=== PATIENT | female | born 1990 | race Caucasian/White ===

== ENCOUNTER 2017-02-11 13:25 | Emergency (ER) | payer OTHER, SELFPAY | END 2017-02-11 15:00 | disposition home or self-care (01) | PROVIDERS: Emergency Provider Nurse Practitioner Family; Family Provider Physician Assistant; Visit Provider Nurse Practitioner Family | DX: J20.9 Acute bronchitis, unspecified (principal); Z88.1 Allergy status to other antibiotic agents | CPT/HCPCS: 71020; 99201 ==

== ENCOUNTER → 2017-05-06 16:36 | Outpatient (CLI) | payer OTHER, SELFPAY ==
[2017-05-06 16:56] LABS: Basophils % 0.4 % (0.1-2.0); Eosinophils # 0.2 K/mm3 (0.0-0.4); Eosinophils % 1.6 % (0.1-12.0); Hematocrit 43.9 % (37.0-47.0); Hemoglobin 14.3 g/dL (12.2-16.2); Lymphocytes # 2.9 K/mm3 (0.7-4.5); Lymphocytes % 26.2 K/mm3 (10-50); Mean Corpuscular HGB Conc 32.6 g/dL (31.8-35.4); Mean Corpuscular Volume 82.9 fl (81-99); Mean Platelet Volume 8.6 fl (7.4-10.4); Monocytes # 0.6 K/mm3 (0.1-1.0); Monocytes % 5.2 % (1.7-9.3); Neutrophils # 7.4 K/mm3 (1.8-7.8); Neutrophils % 66.6 % (37.0-80.0); Platelet Count 362 K/mm3 (142-424); White Blood Count 11.1 K/mm3 (4.8-10.8)
[2017-05-08 07:13] LABS: HIV Screen 4th Generation wRfx Non Reactive (Non Reactive)
[2017-05-08 10:55] LABS: Hepatitis B Surface Antigen Negative (Negative); Hepatitis C Antibody 0.1 s/co ratio (0.0-0.9); Rapid Plasma Reagin Ab Titer Non Reactive (NonRea<1:1); Rubella Antibodies, IgG 7.11 index (Immune >0.99)
== END ==
PROVIDERS: Family Provider Physician Assistant; PCP Nurse Practitioner Family; Visit Provider Nurse Practitioner Obstetrics & Gynecology
DX: Z34.90 Encounter for supervision of normal pregnancy, unspecified, unspecified trimester (principal)
CPT/HCPCS: 36415; 85025; 86592; 86703; 86762; 86850; 87340; 87380; G0432

== ENCOUNTER → 2017-05-14 12:45 | Outpatient (CLI) | payer OTHER, SELFPAY ==
--- NOTE | 2017-05-14 12:46 | US_ITS ---
US OB transvaginal HISTORY: ITS.REASON: US OB for Dates ORDERING PHYSICIAN: Guero Brewer MD PATIENT AGE: 27 years COMPARISON: None FINDINGS: There is an intrauterine gestational sac present. A yolk sac is also identified which measures up to 4 mm. The mean sac diameter is 1.2 cm. There may be a small pole present however, it is too small to determine. No heart tones evident at this time. 17 mm corpus luteum cyst on the left. IMPRESSION: Intrauterine gestational sac with yolk sac and possible pole. To early to confirm viability. Consider follow-up exam in 7-10 days as well as correlation with beta hCG
== END ==
PROVIDERS: Family Provider Physician Assistant; PCP Nurse Practitioner Family; Visit Provider Nurse Practitioner Obstetrics & Gynecology
DX: O26.841 Uterine size-date discrepancy, first trimester (principal)
CPT/HCPCS: 76830

== ENCOUNTER → 2017-06-03 13:15 | Outpatient (CLI) | payer OTHER, SELFPAY ==
--- NOTE | 2017-06-03 13:18 | US_ITS ---
US OB transvaginal HISTORY: ITS.REASON: US OB- Dates ORDERING PHYSICIAN: Guero Brewer MD PATIENT AGE: 27 years COMPARISON: 05/14/2017 FINDINGS: An intrauterine gestational sac is present with a pole with a crown-rump length of 1.85 cm correlating to gestational age of 8w3d. heart tones are present with an FHR of 154 bpm's. Yolk sac is noted. The amnion and chorion have not yet fused. Adnexa: 2 cm left corpus luteum cyst is present. IMPRESSION: Live intrauterine gestation at 8 weeks 3 days as described above. Estimated due date is 01/10/2018
== END ==
PROVIDERS: Family Provider Physician Assistant; PCP Nurse Practitioner Family; Visit Provider Nurse Practitioner Obstetrics & Gynecology
DX: O26.841 Uterine size-date discrepancy, first trimester (principal)
CPT/HCPCS: 76830

== ENCOUNTER → 2017-06-26 12:10 | Outpatient (CLI) | payer OTHER, SELFPAY ==
[2017-06-26 13:30] LABS: Free T4 (Free Thyroxine) 1.54 ng/dl (0.76-1.46)
== END ==
PROVIDERS: Visit Provider Nurse Practitioner Obstetrics & Gynecology
DX: Z34.90 Encounter for supervision of normal pregnancy, unspecified, unspecified trimester (principal)
CPT/HCPCS: 36415; 84439

== ENCOUNTER 2017-07-12 17:50 | Outpatient (CLI) | payer OTHER, SELFPAY ==
[2017-07-12 17:58] VITALS: BMI 31.6
--- NOTE | 2017-07-12 17:59 | US_ITS ---
US OB >= 14 weeks Fetus COMPARISON: Ultrasound 06/03/2017 HISTORY: Right transvaginal bleeding today, no cramping TECHNIQUE: Transvaginal imaging FINDINGS: There is a viable fetus in cephalic presentation. The heart rate is 1 52 bpm. The placenta is posterior and low-lying with what may be a partial placenta previa. There is a three-vessel cord. No gross abnormality is noted. Measurements reveal the BPD to be 2.67 cm equaling 14 weeks and 5 days, OFD 3.24 cm equaling 14 weeks 2 days. The head circumference is 9.33 cm equaling 14 weeks 2 days and abdominal circumference is 7.65 cm equaling 14 weeks 1 day. IMPRESSION: Viable early second trimester gestation with estimated age of 14 weeks and 3 days. Suggest a follow-up ultrasound in 5-6 weeks to monitor positioning of the placenta
[2017-07-12 18:00] VITALS: BP 140/74; PULSE 103; RESP 18; TEMP 36.9; O2SAT 97; BMI 31.6
[2017-07-12 18:20] LABS: Microscopic, Urine URINE MICROSCOPIC (MICROSCOPIC)
[2017-07-12 18:22] LABS: Appearance,Urine SL CLOUDY (Clear); Bilirubin,Urine Negative (Negative); Blood, Urine 2+ (Negative); Color,Urine YELLOW (Yellow); Glucose,Urine (UA) Negative (Negative); Ketones,Urine Negative (Negative); Leukocyte Esterase,Urine TRACE (Negative); Nitrate,Urine Negative (Negative); PH,Urine 6.5 (5.0-8.5); Protein,Urine Negative (Negative); Urobilinogen,Urine 0.2 EU/dl (0.2)
[2017-07-12 18:37] LABS: Bacteria,Urine 2+ /lpf
[2017-07-12 19:05] LABS: Hematocrit 41.7 % (37.0-47.0); Hemoglobin 13.6 g/dL (12.2-16.2)
== END 2017-07-12 19:13 | disposition home or self-care (01) ==
LOC: OBOUT 17:52 → OB 17:53
PROVIDERS: PCP Obstetrics & Gynecology; Visit Provider Nurse Practitioner Obstetrics & Gynecology
DX: O46.91 Antepartum hemorrhage, unspecified, first trimester (principal); Z3A.14 14 weeks gestation of pregnancy
CPT/HCPCS: 36415; 76805; 76830; 81001; 85014; 85018; 87086

== ENCOUNTER → 2017-07-23 08:55 | Outpatient (CLI) | payer OTHER, SELFPAY ==
--- NOTE | 2017-07-23 08:56 | US_ITS ---
US OB <= 14 weeks fetus: INDICATION: ITS.REASON: US OB- Bleeding during ORDERING PHYSICIAN: Patti Rosario MD PATIENT AGE: 27 years TECHNIQUE: ultrasound transabdominal scanning. COMPARISON: 07/12/2017 FINDINGS: There is a single live fetus present in the cephalic presentation. The cervix is closed. Transabdominal and endovaginal imaging was both performed. Placenta is posterior and grade 1. No evidence of retroplacental hemorrhage. There is a marginal previa which is demonstrated on the endovaginal images. Measurements: Average ultrasound age 15 weeks 5 days. Gestational Age 15 weeks 4 days. Estimated due date by ultrasound age 1101/09/2018. Estimated weight 127 g. This is 37th percentile based on estimated due date. BPD = 16 weeks 0 days OFD = 15 weeks 2 days HC = 15 weeks 3 days AC = 15 weeks 5 days FL = 15 weeks 3 days Heart Rate = 149 BPM HC/AC is 1.16. CI is 83%. FL/BPD is 57%. FL/AC is 19%. IMPRESSION: There is a single live intrauterine gestation density value presentation with an average ultrasound age of 15 weeks 5 days. All parameters correlate. There is a posterior grade 1 placenta with a marginal previa. No retroplacental hemorrhage evident
== END ==
PROVIDERS: PCP Nurse Practitioner Family; Visit Provider Obstetrics & Gynecology
DX: O20.9 Hemorrhage in early pregnancy, unspecified (principal)
CPT/HCPCS: 76801; 76830

== ENCOUNTER 2017-09-30 09:56 | Outpatient (CLI) | payer OTHER, SELFPAY ==
[2017-09-30 10:13] VITALS: BP 130/81; PULSE 96; RESP 20; TEMP 37.1; O2SAT 97; BMI 33.6
[2017-09-30 10:36] LABS: Fetal Fibronectin (Rapid) Negative (Negative)
== END 2017-09-30 12:00 | disposition home or self-care (01) ==
LOC: LAB 09:57 → OB 09:57
PROVIDERS: PCP Physician Assistant; Visit Provider Nurse Practitioner Obstetrics & Gynecology
DX: O47.02 False labor before 37 completed weeks of gestation, second trimester (principal); Z3A.25 25 weeks gestation of pregnancy
CPT/HCPCS: 59025; 82731; 96360; 96372

== ENCOUNTER 2017-10-01 08:12 | Outpatient (CLI) | payer OTHER, SELFPAY | END 2017-10-01 08:45 | disposition home or self-care (01) | LOC: OBOUT 08:13 → OB 08:15 | PROVIDERS: Visit Provider Nurse Practitioner Obstetrics & Gynecology | DX: O47.02 False labor before 37 completed weeks of gestation, second trimester (principal); Z3A.25 25 weeks gestation of pregnancy | CPT/HCPCS: 96372 ==

== ENCOUNTER 2017-10-02 08:57 | Outpatient (CLI) | payer OTHER, SELFPAY ==
[2017-10-02 09:10] VITALS: BMI 34.0
[2017-10-02 09:21] LABS: Microscopic, Urine URINE MICROSCOPIC (MICROSCOPIC)
[2017-10-02 09:23] LABS: Appearance,Urine CLEAR (Clear); Bilirubin,Urine Negative (Negative); Blood, Urine Negative (Negative); Color,Urine YELLOW (Yellow); Glucose,Urine (UA) Negative (Negative); Ketones,Urine Negative (Negative); Leukocyte Esterase,Urine Negative (Negative); Nitrate,Urine Negative (Negative); Protein,Urine Negative (Negative); Specific Gravity, Urine <= 1.005 (1.005-1.030); Urobilinogen,Urine 0.2 EU/dl (0.2)
[2017-10-02 09:29] VITALS: BP 135/82; PULSE 80; RESP 18; TEMP 37; O2SAT 97; BMI 34.0
[2017-10-02 10:08] LABS: Amorphous Sediment,Urine Trace /lpf; Bacteria,Urine 1+ /lpf; WBC,Urine Occasional #/hpf (0-3)
== END 2017-10-02 10:17 | disposition home or self-care (01) ==
LOC: OBOUT 08:58 → OB 08:58
PROVIDERS: PCP Physician Assistant; Visit Provider Nurse Practitioner Obstetrics & Gynecology
DX: O47.02 False labor before 37 completed weeks of gestation, second trimester (principal); Z3A.25 25 weeks gestation of pregnancy
CPT/HCPCS: 59025; 81001

== ENCOUNTER 2017-11-18 12:06 | Outpatient (CLI) | payer OTHER, SELFPAY ==
[2017-11-18 12:15] VITALS: BMI 35.2
[2017-11-18 12:27] LABS: Microscopic, Urine URINE MICROSCOPIC (MICROSCOPIC)
[2017-11-18 12:30] VITALS: BP 131/73; PULSE 96; RESP 18; TEMP 36.8; O2SAT 96; BMI 35.2
[2017-11-18 12:35] LABS: Appearance,Urine SL CLOUDY (Clear); Bilirubin,Urine Negative (Negative); Blood, Urine 1+ (Negative); Color,Urine YELLOW (Yellow); Glucose,Urine (UA) Negative (Negative); Ketones,Urine Negative (Negative); Leukocyte Esterase,Urine TRACE (Negative); Nitrate,Urine Negative (Negative); PH,Urine 6.5 (5.0-8.5); Protein,Urine Negative (Negative); Urobilinogen,Urine 0.2 EU/dl (0.2)
[2017-11-18 12:57] LABS: Bacteria,Urine Trace /lpf; Mucus,Urine Trace /lpf; RBC,Urine Occasional #/hpf (0-3); WBC,Urine Occasional #/hpf (0-3)
== END 2017-11-18 13:00 | disposition hospice, home (50) ==
LOC: OBOUT 12:08 → OB 12:09
PROVIDERS: PCP Physician Assistant; Visit Provider Nurse Practitioner Obstetrics & Gynecology
DX: O26.893 Other specified pregnancy related conditions, third trimester (principal); Z3A.32 32 weeks gestation of pregnancy; R10.2 Pelvic and perineal pain
CPT/HCPCS: 59025; 81001

== ENCOUNTER → 2017-12-09 18:16 | Outpatient (REF) | payer OTHER, SELFPAY | LOC: LAB 18:16 | PROVIDERS: Visit Provider Nurse Practitioner Obstetrics & Gynecology | DX: Z34.90 Encounter for supervision of normal pregnancy, unspecified, unspecified trimester (principal) | CPT/HCPCS: 86403 ==

== ENCOUNTER 2018-01-03 08:31 | Inpatient (IN) ==
[2018-01-03 10:07] LABS: Basophils % 0.4 % (0.1-2.0); Eosinophils # 0.1 K/mm3 (0.0-0.4); Eosinophils % 0.9 % (0.1-12.0); Hematocrit 38.2 % (37.0-47.0); Hemoglobin 13.4 g/dL (12.2-16.2); Lymphocytes # 2.2 K/mm3 (0.7-4.5); Lymphocytes % 19.9 % (10-50); Mean Corpuscular HGB Conc 35.2 g/dL (31.8-35.4); Mean Corpuscular Hemoglobin 30.2 pg (27.0-31.2); Mean Corpuscular Volume 85.6 fl (81-99); Mean Platelet Volume 9.3 fl (7.4-10.4); Monocytes # 0.6 K/mm3 (0.1-1.0); Monocytes % 5.3 % (1.7-9.3); Neutrophils % 73.5 % (37.0-80.0); Platelet Count 227 K/mm3 (142-424); Red Blood Count 4.46 M/mm3 (4.20-5.40); Red Cell Distribution Width 13.9 % (11.5-17.5); White Blood Count 10.9 K/mm3 (4.8-10.8)
--- NOTE | 2018-01-03 12:39 | Progress Note ---
Internal Medicine - PN: Subj *Date: 01/03/18 *Time: 12:35 Interval history: This 27-year-old 3 para 1 AB 1 (trisomy 18) white female has been followed by Dr. Brewer for care, which has been uneventful. At 0300 on 01/02/18 she began leaking fluid and initially called the labor room nurse who instructed her to come to the labor room. However, she did not arrive until 45 this morning (at 39 weeks of gestation) with documented rupture of membranes. She had been scheduled for an induction tomorrow. She was afebrile, but her white count was 10.9 with a left shift. An IV was begun and she was started on intravenous ampicillin. Her cervix was 2-3 cm dilated, with a high presenting vertex. Intravenous Pitocin was begun, and her cervix is now 3 cm, but the vertex is still high. An internal monitor has been placed. To this point, the baby looks good on the monitor. The plan is to continue to observe for any evidence of infection, but to continue augmentation with anticipation of a vaginal delivery. Her blood type is O+. Her rubella titer is immune. She plan s to breast-feed. Exam Vital signs and Labs for Last 24 Hours: Temp Pulse Resp BP Pulse Ox 98.2 F 104 H 20 145/93 H 98 01/03/18 08:54 01/03/18 08:54 01/03/18 08:54 01/03/18 08:54 01/03/18 08:54 Laboratory Results - last 24 hr 01/03/18 08:50: Membrane Rupture Positive A 01/03/18 09:45: Blood Type O Positive, Antibody Screen Negative 01/03/18 09:45: WBC 10.9 H, RBC 4.46, Hgb 13.4, Hct 38.2, MCV 85.6, MCH 30.2, MCHC 35.2, RDW 13.9, Plt Count 227, MPV 9.3, Neut % (Auto) 73.5, Lymph % (Auto) 19.9, [place] % (Auto) 5.3, Eos % (Auto) 0.9, Baso % (Auto) 0.4, Neut # (Auto) 8.0 H, Lymph # (Auto) 2.2, [place] # (Auto) 0.6, Eos # (Auto) 0.1, Baso # (Auto) 0.0 I & O for Last 24 hours: Intake & Output 01/01/18 01/02/18 01/03/18 01/04/18 11:59 11:59 11:59 11:59 Weight 202 lb 5.34 oz
--- NOTE | 2018-01-03 14:45 | Progress Note ---
[facility] Anesthesia Checklist - Structural Data Admitted From: Inpatient Planned Operative Procedure/s: labor epidural Consent for Planned Operative Procedure(s) Verified: Yes - Airway Assessment C-Spine Mobility Assessed: Yes TMJ Mobility Assessed: Yes Dentition: Good Dentition - Anesthesia Plan Anesthesia Risk discussed: Yes Anesthesia Plan: Verified ASA Class: II Anesthesia Type: Epidural [facility] History I have reviewed the patient's past medical history: Yes 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: Denies:: Anxiety, Depression, Diabetes Mellitus Type 1, Migraine Other Surgeries: No: Amputation: No Fractures: No - *Social History Smoking Status: Never smoker Alcohol Intake: never Substance Use Type: denies use - Psychiatric History Pschychiatric History:: Denies:: Anxiety, Depression *Family Hx:: No significant family history Para: 1
[2018-01-03 16:33] LABS: Microscopic, Urine URINE MICROSCOPIC (MICROSCOPIC)
[2018-01-03 16:34] LABS: Appearance,Urine CLEAR (Clear); Bilirubin,Urine Negative (Negative); Blood, Urine Negative (Negative); Color,Urine YELLOW (Yellow); Glucose,Urine (UA) Negative (Negative); Ketones,Urine Negative (Negative); Leukocyte Esterase,Urine Negative (Negative); Protein,Urine Negative (Negative); Urobilinogen,Urine 0.2 EU/dl (0.2)
[2018-01-03 16:44] LABS: Bacteria,Urine 1+ /lpf; Squamous Epithelial Cell,Urine Occasional #/hpf (0-5)
--- NOTE | 2018-01-03 19:12 | Progress Note ---
Internal Medicine - PN: Subj *Date: 01/03/18 *Time: 19:11 Interval history: Epidural has been working well. The patient is now complete, complete, +1. She will begin pushing. Exam Vital signs and Labs for Last 24 Hours: Temp Pulse Resp BP Pulse Ox 98.2 F 104 H 20 145/93 H 98 01/03/18 08:54 01/03/18 08:54 01/03/18 08:54 01/03/18 08:54 01/03/18 08:54 Laboratory Results - last 24 hr 01/03/18 08:50: Membrane Rupture Positive A 01/03/18 09:45: Blood Type O Positive, Antibody Screen Negative 01/03/18 09:45: WBC 10.9 H, RBC 4.46, Hgb 13.4, Hct 38.2, MCV 85.6, MCH 30.2, MCHC 35.2, RDW 13.9, Plt Count 227, MPV 9.3, Neut % (Auto) 73.5, Lymph % (Auto) 19.9, [place] % (Auto) 5.3, Eos % (Auto) 0.9, Baso % (Auto) 0.4, Neut # (Auto) 8.0 H, Lymph # (Auto) 2.2, [place] # (Auto) 0.6, Eos # (Auto) 0.1, Baso # (Auto) 0.0 01/03/18 14:48: Urine Color Yellow, Urine Appearance Clear, Urine pH 7.0, Ur Specific [place] 1.020, Urine Protein Negative, Urine Glucose (UA) Negative, Urine Ketones Negative, Urine Blood Negative, Urine Nitrate Negative, Urine Bilirubin Negative, Urine Urobilinogen 0.2, Ur Leukocyte Esterase Negative, Urine WBC 3-5, Ur Squamous Epith Cells Occasional, Urine Bacteria 1+ I & O for Last 24 hours: Intake & Output 01/01/18 01/02/18 01/03/18 01/04/18 11:59 11:59 11:59 11:59 Weight 202 lb 5.34 oz
--- NOTE | 2018-01-03 19:40 | Procedure Note ---
- Delivery Note Delivery Date:: 01/03/18 Delivery Time:: 19:16 Anesthesia Type: Epidural Was labor medically induced?: Yes Induction method: per pitocin protocol Gestational age (weeks): 39 Infant delivered prior to 39 weeks?: No Infant Gender: Male at 1 minute: 9 at 5 minutes: 9 Suction Catheter Type: [place] AF:: clear LAC or MLE?: LAC (1st degree perineal) Delivery Procedure:: This 27-year-old 3, now para 2, AB 1 white female arrived in L&D 39 weeks of gestation, having experienced premature rupture of membranes approximately 40 hours prior. She was afebrile. Her CBC was normal except for a slightly elevated white count and left shift. She was started on intravenous antibiotics (ampicillin) and remained afebrile throughout her labor and delivery. At the time of admission she was 2-3 cm dilated. She was experiencing irregular contractions. She was augmented with intravenous Pitocin, and labored under a labor epidural, which worked well. She went steadily to completion at 190, and delivered spontaneously, without an episiotomy, at 190. There was no meconium, nor was there a nuchal cord. The baby's nasal and oropharynx were bulb suction, and the baby cried spontaneously on the perineum, as was delivered. The cord was clamped and cut, 3 vessels were noted to be within the cord, and cord blood was obtained. The cord pH is pending at this time. The baby was handed into the arms of the attending track template maker, Dr. Alvarez, who assigned Apgars of 9 at 1 minute and 9 at 5 minutes to this 7 pound 10 ounce, 20 inch male infant, born at 190. The placenta delivered spontaneously, intact, at 1911, making the total time in labor 11 hours 12 minutes. The uterus was inspected and was felt to be clean, and was involuting well, with IV Pitocin running. The rectovaginal septum was intact at the close of the procedure, but there was a small first-degree midline perineal laceration, which was closed with a running unlocked suture of 2-0 Vicryl. The sponge and needle count was correct. The estimated blood loss was 350 cc. The patient tolerated the procedure well, and was recovered in excellent condition. Her blood type is O+. Her rubella titer is immune. She plans to breast-feed. Placental Delivery Description: Spontaneous
[2018-01-03 20:30] LABS: Hemoglobin 11.6 g/dL (12.2-16.2)
[2018-01-04 06:34] LABS: Hematocrit 32.8 % (37.0-47.0); Hemoglobin 11.3 g/dL (12.2-16.2)
--- NOTE | 2018-01-04 08:40 | Progress Note ---
Internal Medicine - PN: Subj *Date: 01/04/18 *Time: 08:39 Interval history: She continues to do very well. She is eating and ambulating. She is breast- feeding. Exam Vital signs and Labs for Last 24 Hours: Temp Pulse Resp BP Pulse Ox 98.2 F 104 H 20 145/93 H 98 01/03/18 08:54 01/03/18 08:54 01/03/18 08:54 01/03/18 08:54 01/03/18 08:54 Laboratory Results - last 24 hr 01/03/18 08:50: Membrane Rupture Positive A 01/03/18 09:45: Blood Type O Positive, Antibody Screen Negative 01/03/18 09:45: WBC 10.9 H, RBC 4.46, Hgb 13.4, Hct 38.2, MCV 85.6, MCH 30.2, MCHC 35.2, RDW 13.9, Plt Count 227, MPV 9.3, Neut % (Auto) 73.5, Lymph % (Auto) 19.9, [place] % (Auto) 5.3, Eos % (Auto) 0.9, Baso % (Auto) 0.4, Neut # (Auto) 8.0 H, Lymph # (Auto) 2.2, [place] # (Auto) 0.6, Eos # (Auto) 0.1, Baso # (Auto) 0.0 01/03/18 14:48: Urine Color Yellow, Urine Appearance Clear, Urine pH 7.0, Ur Specific [place] 1.020, Urine Protein Negative, Urine Glucose (UA) Negative, Urine Ketones Negative, Urine Blood Negative, Urine Nitrate Negative, Urine Bilirubin Negative, Urine Urobilinogen 0.2, Ur Leukocyte Esterase Negative, Urine WBC 3-5, Ur Squamous Epith Cells Occasional, Urine Bacteria 1+ 01/03/18 19:20: Hgb 11.6 L D, Hct 35.0 L 01/03/18 19:46: Cord ABG pH 7.36 01/04/18 06:00: Hgb 11.3 L, Hct 32.8 L I & O for Last 24 hours: Intake & Output 01/01/18 01/02/18 01/03/18 01/04/18 11:59 11:59 11:59 11:59 Output Total 600 / 600 Balance -600 / -600 Weight 202 lb 5.34 oz Microbiology Reports for the Last 24 Hours: Microbiology 01/03/18 19:15 Umbilical Cord Gram Stain - Final - Constitutional no acute distress Assessment and Plan - Assessment and plan all Dx Assessment and Plan for all problems:: She continues to do well. We will plan to send her home tomorrow.
--- NOTE | 2018-01-05 08:24 | Discharge Summary ---
General - General Admission date:: 01/03/18 Discharge date: 01/05/18 HPI HPI: She is a 27-year-old 3 now para 2 aborta 1 who was 39 weeks gestational age. She had had about 2 days of ruptured membranes came in in early labor. She was augmented with oxytocin was group B streptococcus negative. Hospital Course Hospital Course: She was started on oxytocin. Her membranes had previously ruptured. She progressed under labor epidural to full dilation and delivered spontaneously a live born male child at 7:09 PM in the evening of January 03, 2018. The baby was a liveborn male child weighing 7 pounds 10 ounces and 20 inches long. He had Apgars of 9 at 1 minute and 9 at 5 minutes. She has done well and has remained afebrile throughout her hospitalization. She is eating and drinking and ambulating. She is pumping her breasts but much colostrum. She is taking [id number] analgesics for pain. She has, she is rubella immune and was group B Streptococcus negative. Her instruction assistant principal is Dr. Yeboah. She is discharged home to follow weeks time. She will continue her meds and iron. She will continue with njfv-osr-[id number] analgesics. Her condition on discharge is stable. Rhogam Administration: Not Indicated Objective Vital signs: Temp Pulse Resp BP Pulse Ox 98.0 F 87 16 120/70 98 01/04/18 08:05 01/04/18 08:05 01/04/18 08:05 01/04/18 08:05 01/04/18 08:05 no acute distress Results Labs on day of discharge: Preliminary micro results at discharge 01/03/18 19:15 Surgical Biopsy Culture - Preliminary Umbilical Cord NO GROWTH AFTER 24 HOURS DS: Diagnosis - Discharge Diagnosis (1) Normal delivery at term Status: Acute Discharge Plan - Patient Discharge Instructions ACTIVITY: No heavy lifting DIET: continue same diet - Follow up Plan Disposition: Home, Self-Shelter Medications: Home Medications Medication Instructions Recorded Confirmed Type 1 tab PO QHS 05/06/17 01/04/18 History vitamin,calcium,zdnzkwgi-trfv-ociok acid tablet Prescriptions/Medication Reconciliation: Continue vitamin,calcium,mktbpcnl-dtie-frsxm acid tablet 1 tab PO QHS
[2018-01-05 10:13] VITALS: BP 138/76
== END 2018-01-05 13:55 | disposition home or self-care (01) ==
LOC: OBOUT 08:31 → OB 08:33
PROVIDERS: ADMIT Obstetrics & Gynecology; ATTEND Obstetrics & Gynecology

== ENCOUNTER → 2018-05-11 12:16 | Outpatient (CLI) | payer OTHER, SELFPAY ==
[2018-05-11 13:51] LABS: HCG Qualitative, Serum Negative (Negative)
== END ==
PROVIDERS: Visit Provider Surgery
DX: R22.30 Localized swelling, mass and lump, unspecified upper limb (principal)
CPT/HCPCS: 36415; 84703

== ENCOUNTER → 2018-06-01 14:44 | Outpatient (POV) | payer OTHER, SELFPAY | PROVIDERS: Visit Provider Dermatology | DX: Z00.00 Encounter for general adult medical examination without abnormal findings (principal) ==

== ENCOUNTER → 2019-03-28 15:58 | Outpatient (CLI) | payer OTHER, MEDICAID, SELFPAY ==
[2019-03-28 16:41] LABS: Basophils # 0.1 K/mm3 (0-0.2); Basophils % 0.7 % (0.1-2.0); Eosinophils # 0.1 K/mm3 (0.0-0.4); Eosinophils % 1.2 % (0.1-12.0); Hematocrit 41.6 % (37.0-47.0); Hemoglobin 13.8 g/dL (12.2-16.2); Lymphocytes % 29.9 % (10-50); Mean Corpuscular HGB Conc 33.1 g/dL (31.8-35.4); Mean Corpuscular Hemoglobin 28.5 pg (27.0-31.2); Mean Platelet Volume 9.3 fl (7.4-10.4); Monocytes # 0.4 K/mm3 (0.1-1.0); Monocytes % 3.7 % (1.7-9.3); Neutrophils # 6.4 K/mm3 (1.8-7.8); Neutrophils % 64.4 % (37.0-80.0); Platelet Count 274 K/mm3 (142-424); Red Blood Count 4.84 M/mm3 (4.20-5.40); Red Cell Distribution Width 12.4 % (11.5-17.5); White Blood Count 9.9 K/mm3 (4.8-10.8)
[2019-03-28 17:39] LABS: Anion Gap 14.7 mEq/L (5-15); Blood Urea Nitrogen 17 mg/dL (7-18); Calcium 8.9 mg/dL (8.5-10.1); Carbon Dioxide 26 mmol/L (21.0-32.0); Chloride 105 mmol/L (98-107); Estimated Glomerular Filt Rate 75 ml/min (>60); GFR (African American) 91 ML/MIN (>60); Glucose 92 mg/dL (74-106); Potassium 4.7 mmoL/L (3.5-5.1); Sodium 141 mmol/L (137-145)
[2019-03-28 17:56] LABS: HCG Qualitative, Serum Negative (Negative)
== END ==
PROVIDERS: Visit Provider Nurse Practitioner Obstetrics & Gynecology
DX: Z01.818 Encounter for other preprocedural examination (principal); Z30.09 Encounter for other general counseling and advice on contraception
CPT/HCPCS: 36415; 80048; 84703; 85025

== ENCOUNTER 2019-08-28 15:53 | Emergency (ER) | payer OTHER, SELFPAY ==
[2019-08-28 15:53] VITALS: BP 124/87; PULSE 96; RESP 20; TEMP 36.9; O2SAT 100; BMI 33.5
--- NOTE | 2019-08-28 16:20 | HMH.EDUTC ---
[facility] [place] Disposition Clinical Impression: UTI (urinary tract infection) Qualifiers: Urinary tract infection type: site unspecified Hematuria presence: with hematuria Qualified Code(s): N39.0 - Urinary tract infection, site not specified Disposition: Home, Self-Care Condition on Discharge: Good Instructions: Trimethoprim/Sulfamethoxazole (Alternative Therapy), Urinary Tract Infection, DI for Urinary Tract Infection (UTI), Phenazopyridine Additional Instructions: *Increase fluids. Water not Soda or Tea *Start antibiotic immediately and be sure to take as ordered for the FULL length of time although you should start to see improvement over the next 48 hours *Pyridium as needed Remember this medication will turn your urine [place]. This is normal but it will stain what ever it gets on *You should not use Pyridium for more than 48 hours. If so , follow up with your primary physician to review urine culture and ensure that antibiotic is adequate for infection *Be SURE to follow up anytime for new or worsening symptoms with your family doctor. AND in 48 hours for urine culture results with your family doctor, if you do not have a doctor then you may call back to the [facility] for urine culture results and further treatment. We do recommend that you choose and establish care with a Primary Care Physician. AND follow up with them in 10-14 days to repeat UA to ensure infection is resolved and blood no longer present *Be sure to let your PCP know that we sent urine cultures from the [facility] so they can follow up to ensure that you area the on the correct antibiotic Call your doctor office and make appointment for 48 hours (2 days from today) to follow up and get the results of your urine culture and further treatment Return if needed Straight to ER if any life threatening symptoms Prescriptions: Sulfamethoxazole/Trimethoprim [Bactrim DS tablet] 1 each PO BID 10 Days #20 tab Prescription Printed Phenazopyridine HCl [Pyridium 200mg Tablet] 200 pow PO TID #6 tab Prescription Printed Referrals: Anh Galaviz APRN [Primary Care Provider] - As needed Time of Disposition: 16:32 Medical Decision Making - Wade Inquiry Pt receiving controlled substance: No Wade was queried for this patient: No Vital Signs: 08/28/19 15:53 08/28/19 16:38 Temperature 98.4 F 98.4 F Temperature Source Oral Oral Pulse Rate 96 H Pulse Rate [Radial] 96 H Respiratory Rate 20 20 Blood Pressure 124/87 Blood Pressure [Right Arm] 124/87 Blood Pressure Mean [Right Arm] 99 Blood Pressure Source Automatic Cuff Blood Pressure Source [Right Arm] Automatic Cuff Blood Pressure Position Sitting Blood Pressure Position [Right Arm] Sitting 02 Sat by Pulse Oximetry 100 Oxygen Delivery Method Room Air Room Air - Lab Data Lab results reviewed: Yes: I reviewed the patient's lab results. Lab Results 08/28/19 15:54: Urine Color Yellow, Urine Appearance Clear, Urine pH 7.0, Ur Specific [place] 1.015, Urine Protein 1+, Urine Glucose (UA) Negative, Urine Ketones Negative, Urine Blood 3+, Urine Nitrate Positive A, Urine Bilirubin Negative, Urine Urobilinogen 1, Ur Leukocyte Esterase 3+ A Orders (Tests/Meds): ED MEDICATIONS Discontinued Medications Generic Name Dose Route Start Last Admin Trade Name Freq PRN Reason Stop Dose Admin Ceftriaxone Sodium 1 gm 08/28/19 16:25 08/28/19 16:35 Rocephin 1gm Vial IM 08/28/19 16:26 1 gm ONCE ONE Administration Protocol Lidocaine HCl 0 ml 08/28/19 16:25 08/28/19 16:36 Lidocaine 1% 10ml Mdv IM 08/28/19 16:26 2.1 ml ONCE ONE Administration ORDERS Category Date Time Status Urine Culture Stat Micro 08/28/19 16:00 Received [facility] [place] HPI - General Stated complaint: Poss UTI Time Seen by Provider: 08/28/19 16:20 Mode of Arrival: Ambulatory Source of Information: Patient Limitations: No Limitations Description of Symptoms (Recalled from Triage Doc. by RN): UTI, frequent urination since t
[2019-08-28 16:23] LABS: Apearance,Urine Clear (Clear); Bilirubin,Urine Negative (Negative); Blood, Urine 3+ (Negative); Color,Urine Yellow (Yellow); Glucose,Urine (UA) Negative (Negative); Ketones,Urine Negative (Negative); Protein,Urine 1+ (Negative); Specific Gravity, Urine 1.015 (1.005-1.030); UTC Leukocyte Esterase,Urine 3+ (Negative); UTC Nitrate,Urine Positive (Negative); Urobilinogen,Urine 1 EU/dl (0.2)
[2019-08-28 16:38] VITALS: BP 124/87; PULSE 96; RESP 20; TEMP 36.9; O2SAT 100
== END 2019-08-28 16:40 | disposition home or self-care (01) ==
PROVIDERS: Emergency Provider Nurse Practitioner; PCP Nurse Practitioner Family
DX: N30.00 Acute cystitis without hematuria (principal)
CPT/HCPCS: 81003; 87086; 87088; 87186; 96372; 99202

== ENCOUNTER → 2020-01-25 15:24 | Outpatient (CLI) | payer OTHER, SELFPAY | PROVIDERS: Visit Provider Physician Assistant | DX: N39.0 Urinary tract infection, site not specified (principal) | CPT/HCPCS: 87086; 87088; 87186 ==

== ENCOUNTER → 2020-03-09 22:50 | Outpatient (CLI) | payer OTHER, SELFPAY | PROVIDERS: PCP Nurse Practitioner Family; Visit Provider Nurse Practitioner Family | DX: U07.1 COVID-19 (principal) | CPT/HCPCS: U0003 ==

== ENCOUNTER → 2020-03-26 17:30 | Outpatient (CLI) | payer OTHER, SELFPAY ==
--- NOTE | 2020-03-26 17:37 | XR_ITS ---
PROCEDURE: XR CHEST 2V CLINICAL HISTORY: covid Chest pain COMPARISON: CR CXR CHEST(2 VIEWS-NOT PORTABLE) from 03/25/2016 CR CXR CHEST(2 VIEWS-NOT PORTABLE) from 10/25/2016 CT CTAC CTA-CHEST from 10/25/2016 CR CXR CHEST(2 VIEWS-NOT PORTABLE) from 02/11/2017 FINDINGS: The cardiomediastinal silhouette and pulmonary vascularity are within normal limits. The lungs are clear without infiltrates, suspicious nodules, or pleural effusions. No acute bony abnormalities. IMPRESSION: No acute findings. Dictated by: Darren Kirk MD 03/26/2020 18:55 Darren Kirk MD in [place] 03/26/2020 18:55
== END ==
PROVIDERS: PCP Nurse Practitioner Family; Visit Provider Nurse Practitioner Family
DX: R07.89 Other chest pain (principal)
CPT/HCPCS: 71046

== ENCOUNTER → 2020-04-13 13:43 | Outpatient (CLI) | payer OTHER, SELFPAY ==
--- NOTE | 2020-04-13 13:44 | US_ITS ---
PROCEDURE: US TRANSVAGINAL CLINICAL INDICATION: RLQP Pelvic pain COMPARISON: US OBTV US OB transvaginal from 06/03/2017 FINDINGS: UTERUS: 8cm x 5cmx 4cm with a combined endometrial thickness of 5.4mm LEFT OVARY: [id number] with a volume of 3.3ml. RIGHT OVARY: [id number] with a volume of 11.4ml. There are small nabothian cyst. Bilateral ovarian blood flow is noted. There is a small amount of fluid within the lower endometrial canal. IMPRESSION: Minimal amount fluid within the endometrial canal inferiorly otherwise negative pelvic ultrasound Dictated by: Darren Kirk MD 04/13/2020 17:40 Darren Kirk MD in [facility] 04/13/2020 17:40
== END ==
PROVIDERS: PCP Nurse Practitioner Family; Visit Provider Nurse Practitioner Obstetrics & Gynecology
DX: R10.31 Right lower quadrant pain (principal)
CPT/HCPCS: 76830

== ENCOUNTER → 2020-04-27 16:57 | Outpatient (CLI) | payer OTHER, SELFPAY ==
[2020-04-27 17:58] LABS: Basophils # 0.1 K/mm3 (0-0.2); Basophils % 0.7 % (0.1-2.0); Eosinophils # 0.2 K/mm3 (0.0-0.4); Eosinophils % 1.6 % (0.1-12.0); Hematocrit 41.6 % (37.0-47.0); Hemoglobin 13.2 g/dL (12.2-16.2); Lymphocytes # 3.2 K/mm3 (0.7-4.5); Lymphocytes % 33.4 % (10-50); Mean Corpuscular HGB Conc 31.6 g/dL (31.8-35.4); Mean Corpuscular Hemoglobin 27.7 pg (27.0-31.2); Mean Corpuscular Volume 87.4 fl (81-99); Mean Platelet Volume 8.8 fl (7.4-10.4); Monocytes # 0.4 K/mm3 (0.1-1.0); Monocytes % 3.8 % (1.7-9.3); Neutrophils # 5.8 K/mm3 (1.8-7.8); Neutrophils % 60.5 % (37.0-80.0); Platelet Count 320 K/mm3 (142-424); Red Blood Count 4.76 M/mm3 (4.20-5.40); Red Cell Distribution Width 12.4 % (11.5-17.5); White Blood Count 9.6 K/mm3 (4.8-10.8)
[2020-04-27 18:13] LABS: Alanine Aminotransferase 18 U/L (12-78); Albumin Level 4.1 g/dl (3.5-5.0); Albumin/Globulin Ratio 1.3 (1.1-1.8); Alkaline Phosphatase 67 U/L (38-126); Anion Gap 14.4 mEq/L (5-15); Aspartate Amino Transferase 24 U/L (14-36); Bilirubin,Total 0.2 mg/dl (0.2-1.3); Blood Urea Nitrogen 15 mg/dl (7-17); Calcium 9.2 mg/dl (8.4-10.2); Carbon Dioxide 21 mmol/L (22.0-30.0); Chloride 106 mmol/L (98-107); Estimated Glomerular Filt Rate 85 ml/min (>60); GFR (African American) 103 ML/MIN (>60); Globulin 3.2 g/dL (1.3-3.2); Glucose 102 mg/dl (74-100); Potassium 4.4 mmoL/L (3.5-5.1); Sodium 137 mmol/L (136-145); Total Protein,Serum 7.3 g/dl (6.3-8.2)
== END ==
PROVIDERS: Visit Provider Nurse Practitioner Family
DX: N39.0 Urinary tract infection, site not specified (principal)
CPT/HCPCS: 80053; 85025

== ENCOUNTER → 2020-04-30 14:08 | Outpatient (CLI) | payer OTHER, SELFPAY ==
[2020-04-30 17:36] LABS: Hemoglobin A1C 5.3 % (4.0-6.0)
== END ==
PROVIDERS: Visit Provider Family Medicine
DX: R73.09 Other abnormal glucose (principal)
CPT/HCPCS: 83036

== ENCOUNTER → 2020-05-17 06:19 | Outpatient (CLI) | payer OTHER, SELFPAY ==
--- NOTE | 2020-05-17 06:23 | CT_ITS ---
PROCEDURE: CT HEAD/BRAIN WO CON CLINICAL INDICATION: headaches COMPARISON: CT HDWO CT HEAD W/O CONTRAST from 05/17/2013 TECHNIQUE: Axial images obtained. All CT scans at the facility use one or more dose reduction, viz: automated exposure control, ma/kV adjustment per patient size (including targeted exams where dose is matched to indication, i.e. head), or iterative reconstruction technique. FINDINGS: No midline shift, mass effect, intracranial hemorrhage, hydrocephalus, or extra-axial fluid collection is evident. The phan-white matter differentiation is within normal limits. Brain parenchymal volume is appropriate for the age of the patient. The calvarium has an unremarkable appearance. The mastoid air cells and the paranasal sinuses are clear. IMPRESSION: No acute intracranial process. Dictated by: Shira Goodman 05/17/2020 11:45 Shira Goodman in [facility] 05/17/2020 11:45
== END ==
PROVIDERS: PCP Physician Assistant; Visit Provider Physician Assistant
DX: R51.9 Headache, unspecified (principal); G89.29 Other chronic pain
CPT/HCPCS: 70450

== ENCOUNTER → 2020-05-23 08:01 | Outpatient (CLI) | payer OTHER, SELFPAY ==
[2020-05-23 09:33] LABS: Coronavirus 19 IgG Antibody Positive (Negative); Coronavirus 19 IgM Antibody Negative (Negative)
== END ==
PROVIDERS: PCP Nurse Practitioner Family; Visit Provider Nurse Practitioner Family
DX: Z20.822 Contact with and (suspected) exposure to COVID-19 (principal)
CPT/HCPCS: 36415; 86328

== ENCOUNTER → 2020-06-06 07:39 | Outpatient (CLI) | payer OTHER, SELFPAY ==
[2020-06-06 08:11] LABS: Basophils # 0.1 K/mm3 (0-0.2); Basophils % 0.7 % (0.1-2.0); Eosinophils # 0.1 K/mm3 (0.0-0.4); Eosinophils % 1.5 % (0.1-12.0); Hematocrit 43.8 % (37.0-47.0); Hemoglobin 14.2 g/dL (12.2-16.2); Lymphocytes # 1.8 K/mm3 (0.7-4.5); Mean Corpuscular HGB Conc 32.5 g/dL (31.8-35.4); Mean Corpuscular Hemoglobin 27.6 pg (27.0-31.2); Mean Platelet Volume 8.4 fl (7.4-10.4); Monocytes # 0.4 K/mm3 (0.1-1.0); Neutrophils # 6.8 K/mm3 (1.8-7.8); Neutrophils % 73.8 % (37.0-80.0); Platelet Count 344 K/mm3 (142-424); Red Blood Count 5.15 M/mm3 (4.20-5.40); Red Cell Distribution Width 13.2 % (11.5-17.5); White Blood Count 9.2 K/mm3 (4.8-10.8)
[2020-06-06 08:30] LABS: Chloride 109 mmol/L (98-107); Sodium 137 mmol/L (136-145)
[2020-06-06 08:31] LABS: Potassium 4.5 mmoL/L (3.5-5.1)
[2020-06-06 08:33] LABS: Blood Urea Nitrogen 13 mg/dl (7-17); Estimated Glomerular Filt Rate 85 ml/min (>60); GFR (African American) 103 ML/MIN (>60)
[2020-06-06 08:34] LABS: Anion Gap 13.5 mEq/L (5-15); Calcium 9.4 mg/dl (8.4-10.2); Carbon Dioxide 19 mmol/L (22.0-30.0); Glucose 109 mg/dl (74-100); HCG Qualitative, Serum Negative (Negative)
[2020-06-06 09:15] LABS: Coronavirus 19 IgG Antibody Positive (Negative); Coronavirus 19 IgM Antibody Negative (Negative)
== END ==
PROVIDERS: Visit Provider Nurse Practitioner Obstetrics & Gynecology
DX: Z01.818 Encounter for other preprocedural examination (principal); Z20.822 Contact with and (suspected) exposure to COVID-19; R87.613 High grade squamous intraepithelial lesion on cytologic smear of cervix (HGSIL)
CPT/HCPCS: 36415; 80048; 84703; 85025; 86328

== ENCOUNTER 2020-06-08 07:14 | Day surgery (SDC) | payer OTHER, SELFPAY ==
[2020-06-05 09:03] VITALS: BMI 38.6
[2020-06-08] VITALS (12 sets, daily range): BP systolic 122–158; BP diastolic 72–80; PULSE 84–107; RESP 12–18; TEMP 36.4–38; O2SAT 95–99
--- NOTE | 2020-06-08 09:28 | HMH.OPNOTE ---
Date of procedure: 06/08/20 Pre-op Diagnosis:: High-grade squamous intraepithelial lesion Post-op Diagnosis:: High-grade squamous intra-epithelial lesion Procedure performed:: Cone biopsy, endocervical curettage Surgeon:: Guero Brewer MD WEB APPLICATIONS DEVELOPER:: Other (Jacques Khanna) Anesthesia: LMA Estimated blood loss (mL): 25 Clinical Note:: She is a 22-year-old young lady who had HGSIL on a Pap smear and this was confirmed with biopsy in the office. She was quite nervous so she asked for cone biopsy rather than LEEP procedure. Operative findings:: She had a normal-appearing cervix. There were some areas on the transformation zone that were consistent with HGSIL. Operative note:: She was to the operating room where LMA anesthesia was found be adequate. She was prepared, sterile fashion lithotomy position. Lugol solution was placed on the cervix. I then injected approximately 20 cc of 1% Xylocaine with epinephrine circumferentially about the cervix. And using knife I made a cone biopsy around the cervix. The specimen was removed. This was followed by cautery on the exocervix. I then performed an ECC.. Then using sutures I placed 4 sutures outside in to the inside out circumferentially but the cervix. I then inserted Monsel solution to the cervical os. She tolerated procedure well and was taken recovery next condition. All sponge, instrument and needle counts were correct. The estimated blood loss was less than 25 cc. Condition: stable Disposition: PACU Specimens:: Cone biopsy and endocervical curettage. Complications:: None
--- NOTE | 2020-06-08 10:35 | P.PN_ITS ---
[facility] Anesthesia Checklist - Patient Identification Patient Identification: Arm Band - Structural Data Admitted From: Home Planned Operative Procedure/s: Cone Biopsy Verified Documents: Surgical Consent, History and Physical - Additional verifications Anesthesia Reactions: No Hx Blood Transfusions: No Blood Transfusion Reaction: No - Airway Assessment C-Spine Mobility Assessed: Yes TMJ Mobility Assessed: Yes Dentition: Good Dentition - Neurological Assessment Level of Consciousness: Awake, Alert - Anesthesia Plan Anesthesia Risk discussed: Yes ASA Class: III Anesthesia Type: General [facility] History 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: Reports:: Anxiety Denies:: Asthma, Cancer, Depression, Diabetes Mellitus Type 1, Diabetes Mellitus Type 2, Internal Pacemaker, Migraine, MRSA, Seizures *Have you ever received a pneumonia vaccine?: No *Have you received a flu vaccine this season?: Yes Other 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: Denies: Blood Transfusion Reaction Anesthesia experience/problems:: None Other Surgeries: Yes: Cholecystectomy, Dilation and Curettage, Other. No: C- section, Pacemaker Amputation: No Fractures: No - *Social History Last grade of school completed: High school graduate Smoking Status: Never smoker Alcohol Intake: never Substance Use Type: denies use *Occupational Status:: employed Housing: house Household Members: family, children *Travel in the last 8 weeks: None - Psychiatric History Pschychiatric History:: Reports:: Anxiety Denies:: Depression Family Hx:: Unable to obtain
--- NOTE | 2020-06-08 10:37 | HMH.ANESI ---
[facility] Anesthesia Record Part I Intake, IV Amount: 500 Estimated blood loss (mL): 25 Urine output (mL): 0 Blood Pressure: 129/72 SaO2: 95 Pulse Rate: 90 Respiratory Rate: 12 Temperature: 99.8 F Patient is:: Awake Stable to PACU at:: 09:32
--- NOTE | 2020-06-08 11:22 | HMH.ANESII ---
[facility] Anesthesia Record Part II Discharge Time: 09:52 Destination: Surgical Day Care (OP Surgery) PACU nurse assessment reviewed?: Yes Patient Condition:: Good Anesthesia Complications:: None Swallowing reflex intact?: Yes Cyanosis?: No Blood Pressure: 124/77 Pulse Rate: 88 Temperature: 97.9 F Mental Status: Alert & Oriented Pain level:: 0 Nausea and/or vomitting:: None Intake, IV Amount: 0
== END 2020-06-08 10:23 | disposition home or self-care (01) ==
LOC: OR 07:16
PROVIDERS: PCP Nurse Practitioner Family; Visit Provider Nurse Practitioner Obstetrics & Gynecology
PROC: 0UBC7ZZ Excision of Cervix, Via Natural or Artificial Opening (ICD-10-PCS; CPT 57520; principal; 2020-06-08 08:45)
DX: R87.613 High grade squamous intraepithelial lesion on cytologic smear of cervix (HGSIL) (principal); F41.9 Anxiety disorder, unspecified; Z79.899 Other long term (current) drug therapy
CPT/HCPCS: 57500; 96374; J2405

== ENCOUNTER → 2020-08-03 07:42 | Outpatient (CLI) | payer OTHER, SELFPAY ==
[2020-08-03 07:59] LABS: Basophils % 0.7 % (0.1-2.0); Eosinophils # 0.2 K/mm3 (0.0-0.4); Eosinophils % 3.5 % (0.1-12.0); Hematocrit 42.6 % (37.0-47.0); Hemoglobin 14.2 g/dL (12.2-16.2); Lymphocytes # 1.8 K/mm3 (0.7-4.5); Lymphocytes % 29.3 % (10-50); Mean Corpuscular HGB Conc 33.4 g/dL (31.8-35.4); Mean Corpuscular Hemoglobin 27.6 pg (27.0-31.2); Mean Corpuscular Volume 82.5 fl (81-99); Mean Platelet Volume 8.5 fl (7.4-10.4); Monocytes # 0.3 K/mm3 (0.1-1.0); Monocytes % 5.6 % (1.7-9.3); Neutrophils # 3.8 K/mm3 (1.8-7.8); Neutrophils % 60.9 % (37.0-80.0); Platelet Count 329 K/mm3 (142-424); Red Blood Count 5.16 M/mm3 (4.20-5.40); White Blood Count 6.2 K/mm3 (4.8-10.8)
[2020-08-03 08:37] LABS: Chloride 112 mmol/L (98-107)
[2020-08-03 08:38] LABS: Potassium 4.2 mmoL/L (3.5-5.1); Sodium 138 mmol/L (136-145)
[2020-08-03 08:40] LABS: Alanine Aminotransferase 16 U/L (12-78); Alkaline Phosphatase 77 U/L (38-126); Anion Gap 14.2 mEq/L (5-15); Aspartate Amino Transferase 20 U/L (14-36); Bilirubin,Total 0.3 mg/dl (0.2-1.3); Blood Urea Nitrogen 13 mg/dl (7-17); Carbon Dioxide 16 mmol/L (22.0-30.0); Estimated Glomerular Filt Rate 85 ml/min (>60); GFR (African American) 103 ML/MIN (>60)
[2020-08-03 08:41] LABS: Albumin Level 4.3 g/dl (3.5-5.0); Albumin/Globulin Ratio 1.4 (1.1-1.8); Calcium 9.1 mg/dl (8.4-10.2); Glucose 102 mg/dl (74-100); Total Protein,Serum 7.3 g/dl (6.3-8.2)
[2020-08-03 08:46] LABS: C-Reactive Protein 2.6 mg/L (0-4)
[2020-08-03 09:21] LABS: Erythrocyte Sedimentation Rate 10 mm/hr (0-20)
--- NOTE | 2020-08-03 17:42 | XR_ITS ---
PROCEDURE INFORMATION: Exam: XR Right Knee Exam date and time: 08/03/2020 5:42 PM Age: 30 years old Clinical indication: Right; Patient HX: Bilat knee pain; Additional info: Bilateral knee pain TECHNIQUE: Imaging protocol: XR Right knee. Views: 4 or more views. COMPARISON: No relevant prior studies available. FINDINGS: Bones/joints: There is no evidence of acute fracture. There is no evidence of joint malalignment or dislocation. Soft tissues: There are no soft tissue masses or fluid collections. IMPRESSION: 1. No evidence of acute fracture. 2. No evidence of acute dislocation.
[2020-08-04 10:11] LABS: RA Latex Turbid. <10.0 IU/mL (0.0-13.9)
[2020-08-04 16:06] LABS: Anti-Centromere B Antibodies <0.2 AI (0.0-0.9); Anti-DNA (DS) Ab Qn 5 IU/mL (0-9); Anti-Jo-1 <0.2 AI (0.0-0.9); Anti-Smith Antibody <0.2 AI (0.0-0.9); Antichromatin Antibodies <0.2 AI (0.0-0.9); Antiscleroderma-70 Antibodies <0.2 AI (0.0-0.9); RNP Antibodies <0.2 AI (0.0-0.9); Sjogren's Anti-SS-A <0.2 AI (0.0-0.9); Sjogren's Anti-SS-B <0.2 AI (0.0-0.9)
[2020-08-06 09:26] LABS: Lupus Reflex Interpretation Comment: (.); dRVVT 54.3 sec (0.0-47.0)
[2020-08-07 00:07] LABS: Anti-Cyclic Citrullinated Pept 18 units (0-19)
== END ==
PROVIDERS: PCP Physician Assistant; Visit Provider Physician Assistant
DX: M25.561 Pain in right knee (principal); M25.562 Pain in left knee
CPT/HCPCS: 36415; 73564; 80053; 85025; 85613; 85651; 86140; 86200; 86225; 86235; 86431

== ENCOUNTER 2020-08-27 16:43 | Outpatient (RCR) | payer OTHER, SELFPAY ==
--- NOTE | 2020-08-27 17:32 | HMH.PTOPEV ---
PT Outpatient Evaluation Rehab PT Outpatient Evaluation Start: 08/27/20 16:52 Freq: Status: Active Protocol: Document 08/27/20 16:59 YUMIKO (Rec: 08/27/20 17:32 YUMIKO [id number]) Electronically Signed By Reji Teran, PT 08/27/20 16:59 Outpatient Therapy Subjective History Subjective History This is the initial Physical Therapy evaluation for Elisabet Mccarthy. Pt is a 30 y/o female referred to PT for c/o B knee pain. Pt reports pain began insidiously a couple months ago . Pt does not recal any trauma or changes prior to onset of pain. Pt states pain began in L knee and progressed into both knees - pt c/o pain in medial side of knee and patella. Chief Complaint Pain Symptom Type Ache,Throb,Sharp,Dull Symptoms Relieved By Rest/Positioning Symptoms Aggravated By Sitting,Bending/Stooping, Physical Activity Prior Functional Limitations None Current Functional Limitations Housework,Sitting,Squatting, Recreation Activity,Walking, Stairs,Bending/Stooping Symptom Description Intermittent Level of pain today (0-10) 0 Pain scale - at its best (0-10) 0 Pain scale - at its worst (0-10) 7 Hip/Knee Eval Gait Observation General Gait Pattern Observation No Deviations/Normal Assistive Device Assistive Devices None / NA Palpation Tenderness left Knee Palpation Finding Tenderness MMT bilateral Hip Abduction Strength Grade 4- Good- Hip External Rotation Strength Grade 4- Good- Knee Extension Strength Grade 4- Good- Knee Flexion Strength Grade 4- Good- ROM Hip ROM Reason Not Measured Within Functional Limits Knee ROM Reason Not Measured Within Functional Limits Special Tests Knee Apprehension Test Negative Left,Negative Right Knee Apley Compression Test Negative Left,Negative Right Knee Anterior Drawer Test Negative Left,Negative Right Knee Medial-Lateral Grind Test Negative Left,Negative Right Knee Valgus Stress Test Negative Left,Negative Right Knee Varus Stress Test Negative Left,Negative Right Patellar Grind Test Positive Left,Positive Right Patellar Compression Test Positive Left,Positive Right Outpatient Therapy Assessment Impairments Problems/Impairmments Palpation Tenderness,Impaired Strength,Impaired Walking, Impaired Sitting,Imp
== END 2020-08-27 16:45 | disposition home or self-care (01) ==
LOC: PT 16:43
PROVIDERS: PCP Physician Assistant; Visit Provider Physician Assistant
DX: M25.562 Pain in left knee (principal); M25.561 Pain in right knee
CPT/HCPCS: 97110; 97163

== ENCOUNTER 2020-11-11 13:28 | Day surgery (SDC) | payer OTHER, SELFPAY ==
[2020-11-11] VITALS (11 sets, daily range): BP systolic 120–152; BP diastolic 68–91; PULSE 76–99; RESP 14–20; TEMP 36.8–37; O2SAT 91–100; BMI 37.8
[2020-11-11 14:03] LABS: Microscopic, Urine URINE MICROSCOPIC (MICROSCOPIC)
[2020-11-11 14:05] LABS: Appearance,Urine SL CLOUDY (Clear); Bilirubin,Urine Negative (Negative); Blood, Urine Negative (Negative); Color,Urine YELLOW (Yellow); Glucose,Urine (UA) Negative (Negative); Ketones,Urine 1+ (Negative); Leukocyte Esterase,Urine Negative (Negative); Nitrate,Urine Negative (Negative); Protein,Urine Negative (Negative); Specific Gravity, Urine 1.025 (1.005-1.030)
[2020-11-11 14:08] LABS: Urine Pregnancy, HCG Qual. Negative (Negative)
[2020-11-11 14:13] LABS: Bacteria,Urine Trace /lpf; Mucus,Urine 2+ /lpf; WBC,Urine Occasional #/hpf (0-3)
[2020-11-11 14:18] LABS: Basophils # 0.1 K/mm3 (0-0.2); Basophils % 0.7 % (0.1-2.0); Eosinophils # 0.3 K/mm3 (0.0-0.4); Eosinophils % 2.9 % (0.1-12.0); Hematocrit 42.6 % (37.0-47.0); Hemoglobin 13.6 g/dL (12.2-16.2); Lymphocytes # 2.5 K/mm3 (0.7-4.5); Mean Corpuscular HGB Conc 31.9 g/dL (31.8-35.4); Mean Corpuscular Hemoglobin 27.7 pg (27.0-31.2); Mean Platelet Volume 9.1 fl (7.4-10.4); Monocytes # 0.4 K/mm3 (0.1-1.0); Monocytes % 4.5 % (1.7-9.3); Neutrophils # 6.2 K/mm3 (1.8-7.8); Neutrophils % 65.8 % (37.0-80.0); Platelet Count 325 K/mm3 (142-424); White Blood Count 9.4 K/mm3 (4.8-10.8)
[2020-11-11 14:20] LABS: Chloride 106 mmol/L (98-107); Sodium 138 mmol/L (136-145)
[2020-11-11 14:21] LABS: Potassium 4.2 mmoL/L (3.5-5.1)
[2020-11-11 14:23] LABS: Alanine Aminotransferase 14 U/L (12-78); Alkaline Phosphatase 83 U/L (38-126); Anion Gap 12.2 mEq/L (5-15); Aspartate Amino Transferase 22 U/L (14-36); Bilirubin,Total 0.5 mg/dl (0.2-1.3); Blood Urea Nitrogen 12 mg/dl (7-17); Carbon Dioxide 24 mmol/L (22.0-30.0); Creatinine Clearance Estimated 187 mL/min (50-200); Estimated Glomerular Filt Rate 99 ml/min (>60); GFR (African American) 120 ML/MIN (>60); Lipase 66 U/L (23-300)
[2020-11-11 14:24] LABS: Albumin Level 3.9 g/dl (3.5-5.0); Albumin/Globulin Ratio 1.1 (1.1-1.8); Calcium 8.9 mg/dl (8.4-10.2); Globulin 3.4 g/dL (1.3-3.2); Glucose 95 mg/dl (74-100); Total Protein,Serum 7.3 g/dl (6.3-8.2)
--- NOTE | 2020-11-11 14:26 | HMH.EDABDPAI ---
ED Disposition Clinical Impression: Acute appendicitis Qualifiers: Acute appendicitis type: with localized peritonitis Appendicitis gangrene presence: without gangrene Appendicitis perforation presence: without perforation Appendicitis abscess presence: without abscess Qualified Code(s): K35.30 - Acute appendicitis with localized peritonitis, without perforation or gangrene Disposition: Admitted as Observation Condition on Discharge: Fair Instructions: DI for Acute Abdominal Pain Referrals: Bita Tovar PA [Primary Care Provider] - - Critical Care Critical Care Time: No Attestation: On 11/11/20, the high probability of a clinically significant, sudden or life threatening deterioration of the following system(s) required my full and direct attention, intervention and personal management. The time I documented below is in addition to time spent performing reported procedures but includes the following listed in this critical care notation. Medical Decision Making - Medical Records Medical records reviewed: Yes: I reviewed the patient's medical records. - Wade Inquiry Pt receiving controlled substance: No Vital Signs: 11/11/20 13:29 Temperature 98.3 F Temperature Source Oral Pulse Rate [Right Radial] 85 Respiratory Rate 18 Blood Pressure [Right Arm] 127/84 Blood Pressure Mean [Right Arm] 98 Blood Pressure Source [Right Arm] Automatic Cuff Blood Pressure Position [Right Arm] Sitting 02 Sat by Pulse Oximetry 99 Oxygen Delivery Method Room Air - Lab Data Lab Results 11/11/20 13:33: Urine Color Yellow, Urine Appearance Sl cloudy, Urine pH 6.0, Ur Specific [place] 1.025, Urine Protein Negative, Urine Glucose (UA) Negative, Urine Ketones 1+, Urine Blood Negative, Urine Nitrate Negative, Urine Bilirubin Negative, Urine Urobilinogen 1.0, Ur Leukocyte Esterase Negative, Urine WBC Occasional, Ur Squamous Epith Cells 5-10, Urine Bacteria Trace, Urine Mucus 2+ 11/11/20 13:33: Urine HCG, Qual Negative 11/11/20 14:10: WBC 9.4, RBC 4.90, Hgb 13.6, Hct 42.6, MCV 87.0, MCH 27.7, MCHC 31.9, RDW 13.0, Plt Count 325, MPV 9.1, Neut % (Auto) 65.8, Lymph % (Auto) 26.0, [place] % (Auto) 4.5, Eos % (Auto) 2.9, Baso % (Auto) 0.7, Neut # (Auto) 6.2, Lymph # (Auto) 2.5, [place] # (Auto) 0.4, Eos # (Auto) 0.3, Baso # (Auto) 0.1 11/11/20 14:10: Sodium 138, Potassium 4.2, Chloride 106, Carbon Dioxide 24, Anion Gap 12.2, BUN 12, Creatinine 0.70, Estimated Creat Clear 187, Estimated GFR 99, Est GFR ( Amer) 120, Glucose 95, Calcium 8.9, Total Bilirubin 0.5, AST 22, ALT 14, Alkaline Phosphatase 83, Total Protein 7.3, Albumin 3.9, Globulin 3.4 H, Albumin/Globulin Ratio 1.1, Lipase 66 Result diagrams: 11/11/20 14:10 11/11/20 14:10 Orders (Tests/Meds): ED MEDICATIONS Generic Name Dose Route Start Last Admin Trade Name Freq PRN Reason Stop Dose Admin Piperacillin Sod/Tazobactam 100 mls @ 200 mls/hr 11/11/20 16:00 Sod 4.5 gm/ Sodium Chloride IV 11/25/20 15:59 Q6H LUIS MIGUEL Discontinued Medications Generic Name Dose Route Start Last Admin Trade Name Freq PRN Reason Stop Dose Admin Sodium Chloride 1,000 mls @ 999 mls/hr 11/11/20 14:00 11/11/20 14:10 Sod Chlor 0.9% 1000ml Bag IV 11/11/20 15:00 999 mls/hr .Q1H1M LUIS MIGUEL Administration Iopamidol 75 ml 11/11/20 15:10 11/11/20 15:11 Iopamidol-370 (76%);100ml Bottle IV 11/11/20 15:11 75 ml ONCE ONE Administration Ketorolac Tromethamine 30 mg 11/11/20 13:57 11/11/20 14:10 Ketorolac 30mg/Ml Vial IV 11/11/20 13:58 30 mg ONCE ONE Administration Morphine Sulfate 4 mg 11/11/20 16:15 Morphine 4mg/Ml Syringe IV 11/11/20 16:16 ONCE ONE Ondansetron HCl 4 mg 11/11/20 16:15 Ondansetron 4mg/2ml Vial IV 11/11/20 16:16 ONCE ONE Sodium Chloride 10 ml 11/11/20 15:10 11/11/20 15:11 Sodium Chloride 0.9% 10ml Syr (Rad Only) IV 11/11/20 15:11 10 ml ONCE ONE Administration ORDERS Category Date Time Status Consult to Ge
--- NOTE | 2020-11-11 14:39 | CT_ITS ---
PROCEDURE INFORMATION: Exam: CT Abdomen And Pelvis With Contrast Exam date and time: 11/11/2020 2:39 PM Age: 30 years old Clinical indication: Abdominal pain; Acute; Prior surgery; Surgery date: 6+ months; Surgery type: Tubal and gallbladder; Patient HX: Rlq pain TECHNIQUE: Imaging protocol: Computed tomography of the abdomen and pelvis with contrast. Radiation optimization: All CT scans at this facility use at least one of these dose optimization techniques: automated exposure control; mA and/or kV adjustment per patient size (includes targeted exams where dose is matched to clinical indication); or iterative reconstruction. Contrast material: ISOVUE; Contrast volume: 75 ml; Contrast route: IV; COMPARISON: RUQ US RUQ-(ABD LTD)1ORGAN/QUAD/FU 11/12/2016 8:06 AM FINDINGS: Liver: Normal. No mass. Gallbladder and bile ducts: Cholecystectomy Pancreas: Normal. No ductal dilation. Spleen: Normal. No splenomegaly. Adrenal glands: Normal. No mass. Kidneys and ureters: Normal. No hydronephrosis. Stomach and bowel: Unremarkable. No obstruction. No mucosal thickening. Appendix: The appendix measures 9.7 mm. There are mild periappendiceal inflammatory changes. Findings consistent with early acute appendicitis. Intraperitoneal space: Unremarkable. No free air. No significant fluid collection. Vasculature: Unremarkable. No abdominal aortic aneurysm. Lymph nodes: Unremarkable. No enlarged lymph nodes. Urinary bladder: Unremarkable as visualized. Reproductive: Unremarkable as visualized. Bones/joints: Unremarkable. No acute fracture. Soft tissues: Unremarkable. IMPRESSION: The appendix measures 9.7 mm. There are mild periappendiceal inflammatory changes. Findings consistent with early acute appendicitis.
--- NOTE | 2020-11-11 16:18 | PC.NURSE ---
1616 - Ya called and requested that OR team be called in to assist w/an appy per Dr Dsouza 1616 - Forestry Hunter notified to page OR team 162 - Chante returned call 162 - Clair returned call
--- NOTE | 2020-11-11 16:26 | PC.NURSE ---
Dr Randhawa spoke with Dr Dsouza pt to go to surgery
--- NOTE | 2020-11-11 16:42 | PC.NURSE ---
Surgeon is wanting rocephin 2g and flagyl 500 hanging by pt for administration before surgery
--- NOTE | 2020-11-11 16:55 | HMH.ANESCL ---
[facility] Anesthesia Checklist - Patient Identification Patient Identification: Arm Band - Structural Data Admitted From: Emergency Dept Planned Operative Procedure/s: Lap. appendectomy Consent for Planned Operative Procedure(s) Verified: Yes - NPO Status Verified Time NPO: 08:00 - Chart Verification Results Verified: HCG (Negative) - Additional verifications Patient : No Anesthesia Reactions: No Hx Blood Transfusions: No Blood Transfusion Reaction: No - Airway Assessment C-Spine Mobility Assessed: Yes TMJ Mobility Assessed: Yes Dentition: Good Dentition - Neurological Assessment Level of Consciousness: Awake Hx Seizures: No Numbness or tingling in extremities: No - Anesthesia Plan Anesthesia Risk discussed: Yes Anesthesia Plan: Verified ASA Class: II Anesthesia Type: General [facility] History I have reviewed the patient's past medical history: Yes 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: Reports:: Anxiety Denies:: Asthma, Cancer, Depression, Diabetes Mellitus Type 1, Diabetes Mellitus Type 2, Internal Pacemaker, Migraine, MRSA, Seizures *Have you ever received a pneumonia vaccine?: No *Have you received a flu vaccine this season?: Yes Other 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: Denies: Blood Transfusion Reaction Anesthesia experience/problems:: None Other Surgeries: Yes: Cholecystectomy, Dilation and Curettage, Other. No: , Pacemaker Amputation: No Fractures: No - *Social History Smoking Status: Never smoker Alcohol Intake: never Alcohol Intake Frequency:: other Substance Use Type: denies use *Occupational Status:: employed Housing: house Household Members: family, children *Travel in the last 8 weeks: None - Psychiatric History Pschychiatric History:: Reports:: Anxiety Denies:: Depression Family Hx:: Unable to obtain
--- NOTE | 2020-11-11 18:20 | P.OP_ITS ---
Date of procedure: 11/11/20 Pre-op Diagnosis:: Appendicitis Post-op Diagnosis:: Same Procedure performed:: Laparoscopic appendectomy Surgeon:: Stanley Dsouza MD COORDINATOR OF ONLINE PROGRAMS:: Wilfrid Nolasco Anesthesia: GETDella Estimated blood loss (mL): 10 Operative findings:: Injected/inflamed appendix with focal suppurative changes Infraumbilical hernia Operative note:: After informed consent was obtained the patient was taken to the operating room and placed in the supine position. General anesthesia was induced and her abdomen was prepped and draped in sterile fashion. After infiltration of local anesthetic an infraumbilical incision was made. A Veress needle was placed in position. The abdomen was insufflated. A 12 mm optical trocar was placed in position. Under direct visualization a 5 mm trocar was placed in the suprapubic position and an additional 5 mm trocar was placed in the left lower quadrant. The appendix was carefully elevated. It was found to be elongated and injected with moderate inflammatory changes. Few focal areas of suppuration were noted. Harmonic ragini were utilized to take down the mesoappendix. An Endopath 45 stapling device was then used to transect the appendix at its base. The appendix was placed in a retrieval bag and removed through the infraumbilical trocar site. The right lower quadrant was thoroughly irrigated. No active bleeding or sign of injury was noted. Evaluation of the fascia at the infraumbilical site revealed a secondary herniation. The fascia/herniation was closed with 0 Ethibond. All wounds were irrigated after the remaining trocars were removed. Skin was reapproximated with 4-0 Monocryl. Dressings were applied and the patient was transferred to recovery in stable condition. Condition: stable Disposition: PACU Specimens:: Appendix Complications:: No immediate
--- NOTE | 2020-11-11 18:30 | P.PN_ITS ---
[facility] [place] Anesthesia Record Part I Intake, IV Amount: 800 Estimated blood loss (mL): 10 Urine output (mL): 0 Blood Pressure: 129/74 SaO2: 91 Pulse Rate: 99 Respiratory Rate: 14 Temperature: 98.3 F Patient is:: Drowsy, Oral/Nasal airway Stable to PACU at:: 18:28
[2020-11-11 19:43] LABS: Microscopic,Cath URINE MICROSCOPIC (MICROSCOPIC)
[2020-11-11 19:44] LABS: Appearance,Urine/Cath CLEAR (Clear); Bilirubin,Cath Negative (Negative); Blood, Urine/Cath Negative (Negative); Color,Urine/Cath STRAW (Yellow); Glucose,Urine/Cath (UA) Negative (Negative); Ketones,Urine/Cath Negative (Negative); Leukocyte Esterase,Cath Negative (Negative); Nitrate,Cath Negative (Negative); PH,Urine/Cath 6.5 (5.0-8.5); Protein,Urine/Cath Negative (Negative); Specific Gravity, Urine/Cath <= 1.005 (1.005-1.030)
[2020-11-11 19:53] LABS: WBC,Urine/Cath Occasional #/hpf (0-3)
== END 2020-11-11 16:56 ==
LOC: ER 16:24 → SDC 11-12 14:54
PROVIDERS: Emergency Provider Emergency Medicine; PCP Physician Assistant; Visit Provider Surgery
PROC: 0DTJ4ZZ Resection of Appendix, Percutaneous Endoscopic Approach (ICD-10-PCS; CPT 44970; principal; 2020-11-11 17:30)
DX: K35.80 Unspecified acute appendicitis (principal); F41.9 Anxiety disorder, unspecified; Z88.1 Allergy status to other antibiotic agents
CPT/HCPCS: 44970; 74177; 80053; 81001; 81025; 83690; 85025; 96365; 96375; 99284; J0131; J2405; Q9967

== ENCOUNTER → 2021-01-04 09:31 | Outpatient (CLI) | payer OTHER, SELFPAY ==
--- NOTE | 2021-01-04 09:31 | US_ITS ---
PROCEDURE: US BREAST LT COMPLETE CLINICAL INDICATION: Breast pain COMPARISON: No exams were available for comparison FINDINGS: Survey is performed of the left breast with ultrasound. No cystic or solid nodules are evident. Mildly prominent nodes are present in the left axilla measuring up to 3 x 1.5 cm IMPRESSION: Negative left breast ultrasound. Mildly prominent left axillary lymph nodes for which correlation with clinical findings are needed Dictated by: Darren Kirk MD 01/11/2021 11:17 Darren Kirk MD in [place] 01/11/2021 11:17
--- NOTE | 2021-01-04 09:31 | US_ITS ---
PROCEDURE: US BREAST RT COMPLETE CLINICAL INDICATION: Breast pain COMPARISON: US US BREAST LT COMPLETE from 01/04/2021 FINDINGS: General survey performed of the right breast shows no cystic or solid nodules. Mildly prominent axillary lymph node is present at 3.9 x 1.8 cm. IMPRESSION: Unremarkable right breast ultrasound. Mildly prominent right axillary lymph node. Correlation with clinical parameters needed Dictated by: Darren Kirk MD 01/11/2021 11:18 Darren Kirk MD in [place] 01/11/2021 11:18
== END ==
PROVIDERS: PCP Nurse Practitioner Family; Visit Provider Nurse Practitioner Obstetrics & Gynecology
DX: N64.4 Mastodynia (principal)
CPT/HCPCS: 76641

== ENCOUNTER 2021-02-22 08:59 | Emergency (ER) | payer OTHER, SELFPAY ==
[2021-02-22] VITALS (8 sets, daily range): BP systolic 133–156; BP diastolic 64–104; PULSE 73–87; RESP 18–19; TEMP 36.5–36.9; O2SAT 97–100; BMI 40.5
--- NOTE | 2021-02-22 09:28 | HMH.EDUTC ---
[facility] [place] Clinical Impression: Blurry vision, right eye, Headache Disposition: Home, Self-Care Condition on Discharge: Good Instructions: DI for Migraine, DI for Headache Additional Instructions: Continue naproxen as needed for headache. Return to the emergency room with any severe headache or vision symptoms return. Follow-up with primary care provider, call for appointment. Check your COVID results on portal. Referrals: Anh Galaviz APRN [Primary Care Provider] - Medical Decision Making - Wade Inquiry Pt receiving controlled substance: No Wade was queried for this patient: No Vital Signs: 02/22/21 09:05 02/22/21 09:36 02/22/21 10:00 Temperature 97.7 F 98.4 F Temperature Source Oral Oral Pulse Rate 77 Pulse Rate [Right Brachial] 77 84 Respiratory Rate 18 18 Blood Pressure 137/104 H Blood Pressure [Right Arm] 151/89 H 156/103 H Blood Pressure Mean Blood Pressure Mean [Right Arm] 109 120 Blood Pressure Source [Right Arm] Automatic Cuff Automatic Cuff Blood Pressure Position [Right Arm] Sitting Sitting 02 Sat by Pulse Oximetry 97 98 97 Oxygen Delivery Method Room Air Room Air 02/22/21 10:30 02/22/21 11:00 02/22/21 11:30 Temperature Temperature Source Pulse Rate 79 81 87 Pulse Rate [Right Brachial] Respiratory Rate Blood Pressure 133/101 H 142/99 H 142/95 H Blood Pressure [Right Arm] Blood Pressure Mean 109 Blood Pressure Mean [Right Arm] Blood Pressure Source [Right Arm] Blood Pressure Position [Right Arm] 02 Sat by Pulse Oximetry 97 99 100 Oxygen Delivery Method 02/22/21 12:00 02/22/21 12:34 Temperature 98.4 F Temperature Source Pulse Rate 73 73 Pulse Rate [Right Brachial] Respiratory Rate 19 Blood Pressure 135/64 135/64 Blood Pressure [Right Arm] Blood Pressure Mean 87 Blood Pressure Mean [Right Arm] Blood Pressure Source [Right Arm] Blood Pressure Position [Right Arm] 02 Sat by Pulse Oximetry 98 Oxygen Delivery Method Room Air - Lab Data Lab Results 02/22/21 09:30: WBC 6.5, RBC 5.17, Hgb 14.7, Hct 45.9, MCV 88.9, MCH 28.4, MCHC 31.9, RDW 13.3, Plt Count 308, MPV 9.1, Neut % (Auto) 59.2, Lymph % (Auto) 29.6, [place] % (Auto) 5.7, Eos % (Auto) 3.1, Baso % (Auto) 2.4 H, Neut # (Auto) 3.9, Lymph # (Auto) 1.9, [place] # (Auto) 0.4, Eos # (Auto) 0.2, Baso # (Auto) 0.2 02/22/21 09:30: Sodium 138, Potassium 4.2, Chloride 104, Carbon Dioxide 26, Anion Gap 12.2, BUN 13, Creatinine 0.80, Estimated Creat Clear 175, Estimated GFR 85, Est GFR ( Amer) 103, Glucose 93, Calcium 9.0, Total Bilirubin 0.4, AST 29, ALT 19, Alkaline Phosphatase 54, Total Protein 7.3, Albumin 4.2, Globulin 3.1, Albumin/Globulin Ratio 1.4 02/22/21 11:17: SARS-CoV-2 (PCR) Not detected, Influenza A Untype (PCR) Not detected, Influenza Type B (PCR) Not detected Result diagrams: 02/22/21 09:30 02/22/21 09:30 Orders (Tests/Meds): ED MEDICATIONS Discontinued Medications Generic Name Dose Route Start Last Admin Trade Name Benq PRN Reason Stop Dose Admin Diphenhydramine HCl 25 mg 02/22/21 10:57 02/22/21 11:02 Diphenhydramine 50mg/Ml Vial IV 02/22/21 10:58 25 mg ONCE ONE Administration Ketorolac Tromethamine 30 mg 02/22/21 10:57 02/22/21 11:01 Ketorolac 30mg/Ml Vial IV 02/22/21 10:58 30 mg ONCE ONE Administration Prochlorperazine Edisylate 5 mg 02/22/21 10:57 02/22/21 11:01 Prochlorperazine 10mg/2ml Vial IV 02/22/21 10:58 5 mg ONCE ONE Administration Medical Decision Narrative: Patient reports blurry vision in right eye after she started having headache on right side behind her right ear State that this headache is not like others she has had in the past States that she has had recent eye exam Due to symptoms of headache being different than others she has had in the past and blurry vision patient transferred to the ED for further work up and evaluation patient agreed with transfer called ED spoke with
--- NOTE | 2021-02-22 09:29 | PC.NURSE ---
PATIENT SENT TO ER PER Iesha BARRIOS APRN FOR FURTHER EVALUATION. REPORT GIVEN TO Juan Carlos BRADFORD RN BY Iesha BARRIOS APRN
--- NOTE | 2021-02-22 09:41 | CT_ITS ---
FINAL REPORT TECHNIQUE: Thin section axial images were obtained from skull base to vertex without contrast. CLINICAL HISTORY: vision abnormal in R eye FINDINGS: There is no mass effect or midline shift. There is no hydrocephalus. The ventricles are symmetric in size and configuration. There is no extra-axial or intraparenchymal hemorrhage. The posterior fossa is without acute abnormality. The basilar cisterns are preserved. The soft tissues are without acute abnormality. No acute osseous abnormality is identified. IMPRESSION: No acute intracranial abnormality. Reviewed, Interpreted and Dictated by Queenie Yang MD Transcribed by Mao Garcia Authenticated by Queenie Yang MD on 02/22/2021 11:20:32 AM [facility]
[2021-02-22 09:56] LABS: Basophils # 0.2 K/mm3 (0-0.2); Basophils % 2.4 % (0.1-2.0); Eosinophils # 0.2 K/mm3 (0.0-0.4); Eosinophils % 3.1 % (0.1-12.0); Hematocrit 45.9 % (37.0-47.0); Hemoglobin 14.7 g/dL (12.2-16.2); Lymphocytes # 1.9 K/mm3 (0.7-4.5); Lymphocytes % 29.6 % (10-50); Mean Corpuscular HGB Conc 31.9 g/dL (31.8-35.4); Mean Corpuscular Hemoglobin 28.4 pg (27.0-31.2); Mean Corpuscular Volume 88.9 fl (81-99); Mean Platelet Volume 9.1 fl (7.4-10.4); Monocytes # 0.4 K/mm3 (0.1-1.0); Monocytes % 5.7 % (1.7-9.3); Neutrophils # 3.9 K/mm3 (1.8-7.8); Neutrophils % 59.2 % (37.0-80.0); Platelet Count 308 K/mm3 (142-424); Red Blood Count 5.17 M/mm3 (4.20-5.40); Red Cell Distribution Width 13.3 % (11.5-17.5); White Blood Count 6.5 K/mm3 (4.8-10.8)
[2021-02-22 10:01] LABS: Alanine Aminotransferase 19 U/L (12-78); Albumin Level 4.2 g/dl (3.5-5.0); Albumin/Globulin Ratio 1.4 (1.1-1.8); Alkaline Phosphatase 54 U/L (38-126); Anion Gap 12.2 mEq/L (5-15); Aspartate Amino Transferase 29 U/L (14-36); Bilirubin,Total 0.4 mg/dl (0.2-1.3); Blood Urea Nitrogen 13 mg/dl (7-17); Carbon Dioxide 26 mmol/L (22.0-30.0); Chloride 104 mmol/L (98-107); Creatinine Clearance Estimated 175 mL/min (50-200); Estimated Glomerular Filt Rate 85 ml/min (>60); GFR (African American) 103 ML/MIN (>60); Globulin 3.1 g/dL (1.3-3.2); Glucose 93 mg/dl (74-100); Potassium 4.2 mmoL/L (3.5-5.1); Sodium 138 mmol/L (136-145); Total Protein,Serum 7.3 g/dl (6.3-8.2)
--- NOTE | 2021-02-22 10:31 | HMH.EDGENADL ---
ED Disposition Clinical Impression: Blurry vision, right eye Headache Qualifiers: Headache type: unspecified Headache chronicity pattern: acute headache Intractability: not intractable Qualified Code(s): R51.9 - Headache, unspecified Disposition: Home, Self-Care Condition on Discharge: Good Instructions: DI for Headache, DI for Migraine Additional Instructions: Continue naproxen as needed for headache. Return to the emergency room with any severe headache or vision symptoms return. Follow-up with primary care provider, call for appointment. Check your COVID results on portal. Referrals: Anh Galaviz APRN [Primary Care Provider] - - Critical Care Critical Care Time: No Attestation: On 02/22/21, the high probability of a clinically significant, sudden or life threatening deterioration of the following system(s) required my full and direct attention, intervention and personal management. The time I documented below is in addition to time spent performing reported procedures but includes the following listed in this critical care notation. Medical Decision Making - Wade Inquiry Pt receiving controlled substance: No Vital Signs: 02/22/21 09:05 02/22/21 09:36 02/22/21 10:00 Temperature 97.7 F 98.4 F Temperature Source Oral Oral Pulse Rate 77 Pulse Rate [Right Brachial] 77 84 Respiratory Rate 18 18 Blood Pressure 137/104 H Blood Pressure [Right Arm] 151/89 H 156/103 H Blood Pressure Mean [Right Arm] 109 120 Blood Pressure Source [Right Arm] Automatic Cuff Automatic Cuff Blood Pressure Position [Right Arm] Sitting Sitting 02 Sat by Pulse Oximetry 97 98 97 Oxygen Delivery Method Room Air Room Air 02/22/21 10:30 02/22/21 11:00 Temperature Temperature Source Pulse Rate 79 81 Pulse Rate [Right Brachial] Respiratory Rate Blood Pressure 133/101 H 142/99 H Blood Pressure [Right Arm] Blood Pressure Mean [Right Arm] Blood Pressure Source [Right Arm] Blood Pressure Position [Right Arm] 02 Sat by Pulse Oximetry 97 99 Oxygen Delivery Method - Lab Data Lab Results 02/22/21 09:30: WBC 6.5, RBC 5.17, Hgb 14.7, Hct 45.9, MCV 88.9, MCH 28.4, MCHC 31.9, RDW 13.3, Plt Count 308, MPV 9.1, Neut % (Auto) 59.2, Lymph % (Auto) 29.6, [place] % (Auto) 5.7, Eos % (Auto) 3.1, Baso % (Auto) 2.4 H, Neut # (Auto) 3.9, Lymph # (Auto) 1.9, [place] # (Auto) 0.4, Eos # (Auto) 0.2, Baso # (Auto) 0.2 02/22/21 09:30: Sodium 138, Potassium 4.2, Chloride 104, Carbon Dioxide 26, Anion Gap 12.2, BUN 13, Creatinine 0.80, Estimated Creat Clear 175, Estimated GFR 85, Est GFR ( Amer) 103, Glucose 93, Calcium 9.0, Total Bilirubin 0.4, AST 29, ALT 19, Alkaline Phosphatase 54, Total Protein 7.3, Albumin 4.2, Globulin 3.1, Albumin/Globulin Ratio 1.4 Result diagrams: 02/22/21 09:30 02/22/21 09:30 Orders (Tests/Meds): ED MEDICATIONS Discontinued Medications Generic Name Dose Route Start Last Admin Trade Name Katharine PRN Reason Stop Dose Admin Diphenhydramine HCl 25 mg 02/22/21 10:57 02/22/21 11:02 Diphenhydramine 50mg/Ml Vial IV 02/22/21 10:58 25 mg ONCE ONE Administration Ketorolac Tromethamine 30 mg 02/22/21 10:57 02/22/21 11:01 Ketorolac 30mg/Ml Vial IV 02/22/21 10:58 30 mg ONCE ONE Administration Prochlorperazine Edisylate 5 mg 02/22/21 10:57 02/22/21 11:01 Prochlorperazine 10mg/2ml Vial IV 02/22/21 10:58 5 mg ONCE ONE Administration ORDERS Category Date Time Status CT head/brain wo con Stat Cat Scan 02/22/21 09:41 Taken Rapid PCR Covid and Flu A/B Stat Lab 02/22/21 11:17 Received - CT Data CT Scan: Head Time Received: 12:[address] Reviewed: Yes: I have viewed the radiologist's interpretation Findings Narrative: FINAL REPORT TECHNIQUE: Thin section axial images were obtained from skull base to vertex without contrast. CLINICAL HISTORY: vision abnormal in R eye FINDINGS: There is no mass effect or midline shift. There is no h
--- NOTE | 2021-02-22 10:40 | PC.NURSE ---
pt return from CT
[2021-02-22 11:36] LABS: Coronavirus 19, PCR Not Detected (NotDetected); Influenza A, PCR Not Detected (NotDetected); Influenza B, PCR Not Detected (NotDetected)
== END 2021-02-22 12:36 | disposition home or self-care (01) ==
LOC: UTC 09:11 → ER 09:27
PROVIDERS: Emergency Provider Emergency Medicine; PCP Nurse Practitioner Family
DX: H53.8 Other visual disturbances (principal); R51.9 Headache, unspecified; Z20.822 Contact with and (suspected) exposure to COVID-19
CPT/HCPCS: 70450; 80053; 85025; 96374; 96375; 99283; C9803; U0003; U0005

== ENCOUNTER → 2021-03-05 16:30 | Outpatient (CLI) | payer OTHER, SELFPAY ==
--- NOTE | 2021-03-05 16:33 | XR_ITS ---
FINAL REPORT CLINICAL HISTORY: pneumonia COMPARISON: March 26, 2020 FINDINGS: Two views of the chest were obtained. The heart size and pulmonary vascularity are within normal limits. The mediastinum is normal. No acute pulmonary abnormality is identified. There is no pneumothorax. The bony thorax is intact. IMPRESSION: No active cardiopulmonary disease. Reviewed, Interpreted and Dictated by Dhaval Beckford III, MD Transcribed by Stacey Anderson Authenticated by Dhaval Beckford III, MD on 03/06/2021 07:37:53 AM [facility]
== END ==
PROVIDERS: PCP Physician Assistant; Visit Provider Nurse Practitioner Family
DX: J18.9 Pneumonia, unspecified organism (principal)
CPT/HCPCS: 71046

== ENCOUNTER → 2021-03-25 16:31 | Outpatient (CLI) | payer OTHER, SELFPAY ==
--- NOTE | 2021-03-25 16:34 | XR_ITS ---
PROCEDURE INFORMATION: Exam: XR Right Hand Exam date and time: 03/25/2021 4:34 PM Age: 30 years old Clinical indication: Injury or trauma; Fall; Blunt trauma (contusions or hematomas); Hand; Right TECHNIQUE: Imaging protocol: XR Right hand. Views: 3 or more views. COMPARISON: No relevant prior studies available. FINDINGS: Bones/joints: See Soft tissues finding. Soft tissues: Mild soft tissue swelling without acute osseous abnormality. IMPRESSION: Mild soft tissue swelling without acute osseous abnormality.
== END ==
PROVIDERS: PCP Nurse Practitioner Family; Visit Provider Nurse Practitioner Family
DX: M79.641 Pain in right hand (principal)
CPT/HCPCS: 73130

== ENCOUNTER → 2021-04-15 16:09 | Outpatient (CLI) | payer OTHER, SELFPAY | PROVIDERS: Visit Provider Urology | DX: N39.0 Urinary tract infection, site not specified (principal); B96.20 Unspecified Escherichia coli [E. coli] as the cause of diseases classified elsewhere | CPT/HCPCS: 87086; 87088; 87186 ==

== ENCOUNTER 2021-05-14 15:23 | Emergency (ER) | payer OTHER, SELFPAY ==
[2021-05-14 17:17] VITALS: BP 137/98; PULSE 119; RESP 19; TEMP 37; O2SAT 99; BMI 39.6
[2021-05-14 17:25] LABS: Adenovirus,PCR Not Detected (NotDetected); Bordetella Pertussis Not Detected (NotDetected); Chlamydophila Pneumoniae, PCR Not Detected (NotDetected); Coronavirus 19, PCR Not Detected (NotDetected); Coronavirus 229E Not Detected (NotDetected); Coronavirus NL63 Not Detected (NotDetected); Coronavirus OC43 Not Detected (NotDetected); Coronovirus HKU1,PCR Not Detected (NotDetected); Human Metapneumovirus Not Detected (NotDetected); Influenza A, PCR Not Detected (NotDetected); Influenza AH1, 2009 Not Detected (NotDetected); Influenza AH1, PCR Not Detected (NotDetected); Influenza AH3,PCR Not Detected (NotDetected); Influenza B, PCR Not Detected (NotDetected); Mycoplasma Pneumoniae, PCR Not Detected (NotDetected); Parainfluenza 1, PCR Not Detected (NotDetected); Parainfluenza 2, PCR Not Detected (NotDetected); Parainfluenza 3, PCR Not Detected (NotDetected); Parainfluenza 4, PCR Not Detected (NotDetected); Respiratory Syncytial Virus Not Detected (NotDetected); Rhinovirus/Enterovirus Not Detected (NotDetected)
[2021-05-14 17:30] LABS: Apearance,Urine Clear (Clear); Bilirubin,Urine Negative (Negative); Blood, Urine Negative (Negative); Color,Urine Yellow (Yellow); Glucose,Urine (UA) Negative (Negative); Ketones,Urine Negative (Negative); Protein,Urine Negative (Negative)
--- NOTE | 2021-05-14 17:30 | HMH.EDUTC ---
[facility] [place] Disposition Clinical Impression: Viral syndrome Disposition: Home, Self-Care Condition on Discharge: Good Instructions: DI for Viral Syndrome, DI for Fever (Symptom) -- Adult, DI for Headache Additional Instructions: *Monitor Temp, Over the counter Motrin or Tylenol as directed/as needed Tylenol every 4 hours and Motrin every 6 hours (as long as your family doctor has told you that you can take it) for fever or pain. and straight to ER if unable to lower temp less than 101.0 after medication given *Warm salt water gargles may help to soothe the throat *Throat Lozenges *Warm fluids like tea with honey may help to soothe the throat *Sleep elevated *Humidifier/Vaporizer Follow up IMMEDIATELY for new or worsening symptoms or no Noticeable improvement over the next 48-72 hours. 911 for difficulty breathing or swallowing You were tested for today for COVID19 your test result should be back in the next 24-48 hours, you may check your results on the [facility] [employer] health Portal if you have trouble logging on you may call for assistance Make sure to take your Vitamins Vit. C Vit D and Zinc if you can take them Referrals: Anh Galaviz APRN [Primary Care Provider] - As needed Forms: Work/School Release Medical Decision Making - Wade Inquiry Pt receiving controlled substance: No Wade was queried for this patient: No Vital Signs: 05/14/21 17:17 Temperature 98.6 F Temperature Source Oral Pulse Rate [Left] 119 H Respiratory Rate 19 Blood Pressure [Right Arm] 137/98 H Blood Pressure Mean [Right Arm] 111 02 Sat by Pulse Oximetry 99 Orders (Tests/Meds): ORDERS Category Date Time Status Full Resp Panel w/COVID ([facility]) Routine Lab 05/14/21 17:10 Received [facility] [place] HPI - General Stated complaint: nguyen bODY aCHES Time Seen by Provider: 05/14/21 17:33 Mode of Arrival: Ambulatory Source of Information: Patient Limitations: No Limitations Description of Symptoms (Recalled from Triage Doc. by RN): pt c/o nausea, body aches, NGUYEN and lower back pain. HEENT Symptoms (Recalled from RN notes): Yes Resp Symptoms (Recalled from RN notes): No Skin Symptoms (Recalled from RN notes): No MS Symptoms (Recalled from RN notes): No Functional Status (Recalled from RN notes): wnl - History of Present Illness Provider Complaint: Patient states that her daughter had flu last week States that she has been feeling achy all over, body aches, chills, feeling achy in her lower back area and over all not feeling well States that she feels like she may have the flu - Related Data Home Medications Medication Instructions Recorded Confirmed Fexofenadine HCl [Deirdre 180 mg PO DAILY 02/22/21 04/15/21 Allergy] Naproxen 500 mg PO Q6HP PRN 02/22/21 04/15/21 Previous Rx's Medication Instructions Recorded oxycodone-acetaminophen 5 mg-325 1 tab PO TID PRN #20 tab 03/28/21 mg tablet Allergies Allergy/AdvReac Type Severity Reaction Status Date / Time azithromycin [AZITHROMYCIN] Allergy Intermediate I-HIVES Verified 04/15/21 15:01 - Worker's Comp Is this a Worker's Comp case?: No [facility] History - Hepatitis A Screen Drug use history?: No High risk sexual behaviors?: No History of sexually transmitted infection?: No Currently employed?: No Childcare worker?: No Do you have indoor plumbing?: Yes Do you have electricity?: Yes Attestation statement:: This patient has been screened for Hepatitis A risk factors. I have reviewed the patient's past medical history: Yes 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: Reports:: Anxiety Denies:: Asthma, Cancer, Depression, Diabetes Mellitus Type 1, Diabetes Mellitus Type 2, Internal Pacemaker, Migraine, MRSA, Seizures Other 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: Denies: Blood Transfusion Reaction Comment: bladder leakage Other Surgeries: Yes: No Previous Surgery, Appendectomy, Cholecystectomy, Dilation and Curettage, Other. No: , Pacemaker Amputation: No Fractures: No Comment: Right armpit. cone biopsy, MICHAEL
[2021-05-14 17:31] LABS: UTC Influenza A Antigen Negative (Negative); UTC Influenza B Antigen Negative (Negative); UTC Leukocyte Esterase,Urine Negative (Negative); UTC Nitrate,Urine Negative (Negative); Urobilinogen,Urine 0.2 EU/dl (0.2)
[2021-05-14 17:46] VITALS: BP 137/98; PULSE 119; RESP 19; TEMP 37
== END 2021-05-14 17:50 | disposition home or self-care (01) ==
PROVIDERS: Emergency Provider Nurse Practitioner; PCP Nurse Practitioner Family
DX: B34.9 Viral infection, unspecified (principal); R51.9 Headache, unspecified; F41.9 Anxiety disorder, unspecified
CPT/HCPCS: 81003; 87581; 87632; 87798; 87804; 99212; C9803; G0463; U0003; U0005

== ENCOUNTER → 2021-07-16 11:30 | Outpatient (CLI) | payer OTHER, SELFPAY ==
[2021-07-17 08:31] LABS: Microscopic, Urine URINE MICROSCOPIC (MICROSCOPIC)
[2021-07-17 10:22] LABS: Appearance,Urine CLOUDY (Clear); Bilirubin,Urine Negative (Negative); Blood, Urine Negative (Negative); Color,Urine YELLOW (Yellow); Glucose,Urine (UA) Negative (Negative); Ketones,Urine Negative (Negative); Leukocyte Esterase,Urine TRACE (Negative); Nitrate,Urine Negative (Negative); PH,Urine 6.5 (5.0-8.5); Protein,Urine Negative (Negative); Urobilinogen,Urine 0.2 EU/dl (0.2)
[2021-07-17 10:41] LABS: Bacteria,Urine 4+ /lpf
== END ==
PROVIDERS: PCP Physician Assistant; Visit Provider Nurse Practitioner Obstetrics & Gynecology
DX: N39.0 Urinary tract infection, site not specified (principal); B96.20 Unspecified Escherichia coli [E. coli] as the cause of diseases classified elsewhere
CPT/HCPCS: 81001; 87086; 87088; 87186

== ENCOUNTER → 2021-09-09 16:05 | Outpatient (CLI) | payer OTHER, SELFPAY ==
--- NOTE | 2021-09-09 16:07 | XR_ITS ---
FINAL REPORT CLINICAL HISTORY: pain on top of foot shielded FINDINGS: LEFT FOOT Three views of the left foot demonstrate no acute fracture or dislocation. The visualized joint spaces are normally aligned. The soft tissues are unremarkable. IMPRESSION: No acute bony abnormality. Reviewed, Interpreted and Dictated by Queenie Yang MD Transcribed by Stacey Anderson Authenticated and [facility]
== END ==
PROVIDERS: PCP Physician Assistant; Visit Provider Podiatrist
DX: M79.672 Pain in left foot (principal)
CPT/HCPCS: 73630

== ENCOUNTER 2021-11-28 11:34 | Emergency (ER) | payer OTHER, SELFPAY ==
--- NOTE | 2021-11-28 12:14 | EXP.UTC ---
Discharge Plan Disposition Patient Disposition: Home, Self-Care Condition: Good Prescriptions Prescriptions: New benzonatate [benzonatate] 100 mg capsule 100 mg PO TIDP PRN (Reason: Cough) Qty: 30 0RF methylprednisolone 4 mg Tablets,Dose Pack 4 mg PO DIRECTED Qty: 21 0RF cefdinir 300 mg capsule 300 mg PO BID Qty: 20 0RF No Action Mounjaro 2.5 mg/0.5 mL pen injector 2.5 mg SQ WEEKLY Referrals Follow up/Referrals: Bita Tovar PA [Primary Care Provider] - See instructions Activity Restrictions/Add. Instructions Additional Instructions/Restrictions: Drink plenty of fluids. Take tylenol or ibuprofen for pain or fever. Take the medications as directed. Follow up with your regular doctor. GO TO THE ER FOR ANY WORSENING SYMPTOMS Don't start the oral steroids until tomorrow, since you had the shot here today. Clinical Impressions Clinical Impression: Sinusitis, Bronchitis Instructions Patient Instructions: Sinusitis, DI for Sinusitis Discharge ED Provider: Mateus Mcneill [facility] General Stated complaint: Drainage, loss of voice, congestion, sore throat Time Seen by Provider: 11/28/21 12:14 History of Present Illness Provider Complaint: She states that for the past 3 days she has had sinus congestion, sore throat and a productive cough. Related Data Home Medications Medication Instructions Recorded Confirmed tirzepatide 2.5 mg/0.5 mL 2.5 mg SQ WEEKLY Weight loss 11/28/21 11/28/21 subcutaneous pen injector (Mounjaro) Previous Rx's Medication Instructions Recorded benzonatate 100 mg capsule 100 mg PO TIDP PRN Cough #30 caps 11/28/21 cefdinir 300 mg capsule 300 mg PO BID #20 caps 11/28/21 methylprednisolone 4 mg tablets in 4 mg PO DIRECTED #21 tabs 11/28/21 a dose pack Allergies Allergy/AdvReac Type Severity Reaction Status Date / Time azithromycin [AZITHROMYCIN] Allergy Intermediate I-HIVES Verified 11/14/21 08:19 [facility] 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 Furuncle Surgical History H/O tubal ligation History of appendectomy History of cholecystectomy Family History Other Diabetes Social History Smoking Status: Former smoker second hand exposure: No alcohol intake: never substance use type: denies use current occupational status: employed Travel in the last 8 weeks: None household members: significant other and children housing: house number of children: 2 current occupation: [employer] current occupational exposures/hazards: No caffeine: Yes ROS Obtained: Yes All systems reviewed & no additional complaints except as documented Constitutional Constitutional: Reports chills and Reports fever(s) Eyes Eyes: Denies eye discharge ENT Ears, Nose, Mouth, and Throat: Reports as per HPI Cardiovascular Cardiovascular: Denies chest pain Respiratory Respiratory: Denies chest congestion and Reports cough Gastrointestinal Gastrointestingal: Reports nausea; Denies abdominal pain, constipation, cramping, diarrhea or vomiting Musculoskeletal Musculoskeletal: Denies arthralgias Integumentary/Breasts Skin/Breast: Denies rash Neurologic Neurologic: Denies paresthesias Physical Exam General General appearance: alert and in no apparent distress Head Head exam: atraumatic, normocephalic and normal inspection Eye Eye exam: Present normal appearance, PERRL and EOMI ENT ENT exam: Present mucous membranes moist and normal external ear exam Expanded ENT Exam TM/Canal exam: Bilateral TM: erythema and bulging Nose exam: Absent sinus tenderness Mouth exam: Present normal external inspection; Absent drooling Teeth exam: Present normal inspection Throat exam: Present tonsillar erythema, tonsillomegaly and tonsillar exudate Neck
[2021-11-28 12:15] VITALS: BP 140/80; PULSE 75; RESP 21; TEMP 36.9; O2SAT 98; BMI 37.4
[2021-11-28 12:52] VITALS: BP 140/80; PULSE 75; RESP 21; TEMP 36.9; O2SAT 98
== END 2021-11-28 12:57 | disposition home or self-care (01) ==
PROVIDERS: Emergency Provider Nurse Practitioner Family; PCP Physician Assistant
DX: J40 Bronchitis, not specified as acute or chronic (principal); J32.9 Chronic sinusitis, unspecified
CPT/HCPCS: 96372; 99212; G0463

== ENCOUNTER 2022-05-30 15:11 | Emergency (ER) | payer OTHER, SELFPAY ==
[2022-05-30 15:20] VITALS: BP 126/87; PULSE 107; RESP 19; TEMP 37.2; O2SAT 100; BMI 32.4
--- NOTE | 2022-05-30 15:32 | EXP.UTC ---
Discharge Plan Disposition Patient Disposition: Home, Self-Care Condition: Good Prescriptions Prescriptions: No Action Mounjaro 2.5 mg/0.5 mL pen injector 2.5 mg SQ Label Comments: INJECT 2.5 MG (0.5 ML) SUBCUTANEOUSLY ONCE A WEEK FOR 4 WEEKS ondansetron 8 mg tablet,disintegrating 8 mg PO Q8H PRN (Reason: nausea and vomiting) Qty: 30 0RF mirtazapine [Remeron] 15 mg tablet 15 mg PO HS Qty: 30 2RF Caplyta 42 mg capsule 42 mg PO DAILY Qty: 30 2RF Referrals Follow up/Referrals: Bita Tovar PA [Primary Care Provider] - See instructions Activity Restrictions/Add. Instructions Additional Instructions/Restrictions: *Monitor Temp, Over the counter Motrin or Tylenol as directed/as needed Tylenol every 4 hours and Motrin every 6 hours (as long as your family doctor has told you that you can take it) for fever or pain. and straight to ER if unable to lower temp less than 101.0 after medication given *Warm salt water gargles may help to soothe the throat *Throat Lozenges? *Warm fluids like tea with honey may help to soothe the throat? *Sleep elevated *Humidifier/Vaporizer Your throat swab was sent for culture. Those results are typically sent to your primary care. Be sure to follow up in 2-3 days with your family doctor/primary care physician if no improvement so they can review those result and treat if necessary. If you don?t have a primary care doctor, I recommend you get one but in the mean time, you will have to return to a walk in clinic Follow up IMMEDIATELY for new or worsening symptoms or no Noticeable improvement over the next 48-72 hours. 911 for difficulty breathing or swallowing Clinical Impressions Clinical Impression: Viral syndrome Instructions Patient Instructions: Diarrhea, DI for Viral Syndrome Discharge ED Provider[place] Zaira Hairst[place] [facility] [place] General Stated complaint: fevermHA Diarrhea Mode of Arrival: Ambulatory Source of Information: Patient Limitations: No Limitations Time Seen by Provider: 05/30/22 15:32 Description of Symptoms (Recalled from Triage Doc. by RN): PATIENT C/O FEVER, HEADACHE, COUGH, DIARRHEA, NAUSEA AND CONGESTION HEENT Symptoms (Recalled from RN notes): Yes Resp Symptoms (Recalled from RN notes): Yes Skin Symptoms (Recalled from RN notes): No MS Symptoms (Recalled from RN notes): No Functional Status (Recalled from RN notes): WNL History of Present Illness Provider Complaint: Patient states that she hasnt felt well for a couple of days States that she has been having fever, chills, bodyaches, nasal congestion and diarrhea States that her fever at highest was 100.2 States that her son has had strep throat but her throat hasnt been hurting but wanted to get checked Related Data Home Medications Medication Instructions Recorded Confirmed tirzepatide 2.5 mg/0.5 mL 2.5 mg SQ 03/26/22 04/16/22 subcutaneous pen injector (Jasper) Previous Rx's Medication Instructions Recorded mirtazapine 15 mg tablet (Remeron) 15 mg PO HS sleep #30 tabs 04/16/22 ondansetron 8 mg disintegrating 8 mg PO Q8H PRN nausea and 04/16/22 tablet vomiting #30 tabs lumateperone 42 mg capsule 42 mg PO DAILY #30 caps 05/26/22 (Caplyta) Allergies Allergy/AdvReac Type Severity Reaction Status Date / Time azithromycin [AZITHROMYCIN] Allergy Intermediate I-HIVES Verified 04/16/22 08:12 Worker's Comp Is this a Worker's Comp case?: No [facility] Disclaimer: The information contained in this section may have been updated after the patient was seen, as this information can be updated by other users. 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 Abnormal cervical Papanicolaou smear Furuncle Surgical History H/O tubal ligation History of appendectomy History of cholecystectomy Family History Other Diabetes
[2022-05-30 15:50] LABS: UTC Strep Screen (Rapid) Negative (Negative)
[2022-05-30 15:51] VITALS: BP 126/87; PULSE 107; RESP 19; TEMP 37.2; O2SAT 100
[2022-05-30 15:51] LABS: UTC Influenza A Antigen Negative (Negative); UTC Influenza B Antigen Negative (Negative)
== END 2022-05-30 15:53 | disposition home or self-care (01) ==
PROVIDERS: Emergency Provider Nurse Practitioner; PCP Physician Assistant
DX: B34.9 Viral infection, unspecified (principal); R19.7 Diarrhea, unspecified; Z87.891 Personal history of nicotine dependence
CPT/HCPCS: 87804; 87880; 99212; 99213; G0463

== ENCOUNTER 2023-03-23 08:18 | Emergency (ER) | payer OTHER, SELFPAY ==
[2023-03-23 08:32] VITALS: BP 128/81; PULSE 85; RESP 16; TEMP 36.8; O2SAT 98; BMI 37.8
--- NOTE | 2023-03-23 08:42 | EXP.UTC ---
Discharge Plan Disposition Patient Disposition: Home, Self-Care Condition: Good Prescriptions Prescriptions: New amoxicillin [amoxicillin] 875 mg tablet 875 mg PO Q12H Qty: 20 0RF methylprednisolone 4 mg Tablets,Dose Pack 4 mg PO DIRECTED 6 Days Qty: 21 0RF Rx Instructions: Take 1 pack as directed for 6 days [id number]-[id number] [Bromfed DM] 2-30-10 mg/5 mL Syrup 5 ml PO Q6H PRN (Reason: Cough) Qty: 240 0RF ondansetron 4 mg Tablet,Disintegrating 4 mg PO Q8H PRN (Reason: Nausea) Qty: 12 0RF No Action mirtazapine [Remeron] 15 mg tablet 15 mg PO HS Qty: 30 2RF Caplyta 42 mg capsule 42 mg PO DAILY Qty: 30 2RF ondansetron 8 mg tablet,disintegrating 8 mg PO Q8H PRN (Reason: nausea and vomiting) Qty: 30 0RF Mounjaro 5 mg/0.5 mL pen injector 5 mg SQ WEEKLY Qty: 2 2RF Referrals Follow up/Referrals: Bita Tovar PA [Primary Care Provider] - See instructions Activity Restrictions/Add. Instructions Additional Instructions/Restrictions: Drink plenty of fluids. Take tylenol or ibuprofen for pain or fever. Take the medications as directed. Follow up with your regular doctor. GO TO THE ER FOR ANY WORSENING SYMPTOMS Clinical Impressions Clinical Impression: Sinusitis Stand Alone Forms Stand Alone Forms: Work/School Release Instructions Patient Instructions: DI for Sinusitis Discharge ED Provider: Mateus Mcneill [facility] General Stated complaint: fever and nausea Mode of Arrival: Ambulatory Source of Information: Patient Limitations: No Limitations Time Seen by Provider: 03/23/23 08:42 Description of Symptoms (Recalled from Triage Doc. by RN): pt c/o fever and nausea since this am. pt reports she needs a work note. HEENT Symptoms (Recalled from RN notes): No Resp Symptoms (Recalled from RN notes): No Skin Symptoms (Recalled from RN notes): No MS Symptoms (Recalled from RN notes): No Functional Status (Recalled from RN notes): wnl History of Present Illness Provider Complaint: She states that she has sinus congestion, sore throat, and nausea since this morning. Related Data Previous Rx's Medication Instructions Recorded mirtazapine 15 mg tablet (Remeron) 15 mg PO HS sleep #30 tabs 04/16/22 lumateperone 42 mg capsule 42 mg PO DAILY #30 caps 06/04/22 (Caplyta) ondansetron 8 mg disintegrating 8 mg PO Q8H PRN nausea and 06/04/22 tablet vomiting #30 tabs tirzepatide 5 mg/0.5 mL 5 mg (0.5 mL) SQ WEEKLY #2 mL 06/04/22 subcutaneous pen injector (Mounkimberlyro) amoxicillin 875 mg tablet 875 mg PO Q12H #20 tabs 03/23/23 pnjbxggkinyivue-iqcpywegyojxisy-FX 5 ml PO Q6H PRN Cough #240 mL 03/23/23 2 mg-30 mg-10 mg/5 mL oral syrup (Bromfed DM) methylprednisolone 4 mg tablets in 4 mg PO DIRECTED 6 days #21 tabs 03/23/23 a dose pack ondansetron 4 mg disintegrating 4 mg PO Q8H PRN Nausea #12 tabs 03/23/23 tablet Allergies Allergy/AdvReac Type Severity Reaction Status Date / Time azithromycin [AZITHROMYCIN] Allergy Intermediate I-HIVES Verified 03/23/23 08:36 Worker's Comp Is this a Worker's Comp case?: No [facility] Disclaimer: The information contained in this section may have been updated after the patient was seen, as this information can be updated by other users. 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 Abnormal cervical Papanicolaou smear Furuncle Surgical History H/O tubal ligation History of appendectomy History of cholecystectomy Family History Other Diabetes Social History Smoking Status: Former smoker second hand exposure: No alcohol intake: never substance use type: denies use current occupational status: employed Travel in the last 8 weeks: None household members: significant other and children housing: house number of children: 2 current occupation: [employer] current occupational exposures/hazards: No caffeine: Yes ROS Obtained: Yes All systems reviewed & no additional complaints except as documented Constitutional Constitutional: Denies chills and Denies fever(s) Eyes Eyes: Denies eye discharge ENT Ears, Nose, Mouth, and Throat: Reports as per HPI Cardiovascular Cardiovascular: Denies chest pain Respiratory Respiratory: Denies chest congestion and Reports cough Gastrointestinal Gastrointestingal: Reports nausea; Denies abdominal pain, constipation, cramping, diarrhea or vomiting Musculoskeletal Musculoskeletal: Denies arthralgias Integumentary/Breasts Skin/Breast: Denies rash Neurologic Neurologic: Denies paresthesias Physical Exam General General appearance: alert and in no apparent distress Eye Eye exam: Present normal appearance, PERRL and EOMI ENT ENT exam: Present mucous membranes moist and normal external ear exam Expanded ENT Exam External ear exam: Present normal external inspection TM/Canal exam: Bilateral TM: erythema and bulging Nose exam: Absent sinus tenderness Nasal speculum exam: Bilateral: normal Mouth exam: Present normal external inspection; Absent drooling Teeth exam: Present normal inspection Throat exam: Present tonsillar erythema and tonsillomegaly Neck Neck exam: Present normal inspection, full ROM and trachea midline; Absent tenderness, lymphadenopathy or thyromegaly Chest Chest inspection: Present normal inspection and symmetric chest wall rise; Absent tenderness or rash Respiratory Respiratory exam: Present normal lung sounds bilaterally; Absent respiratory distress, wheezes, stridor or accessory muscle use Cardiovascular Cardiovascular exam: Present regular rate, normal rhythm and normal heart sounds Abdominal Exam Abdominal exam: Present soft; Absent distention, tenderness, guarding, rebound or rigidity Extremities Exam Extremities exam: Present normal inspection, full ROM and normal capillary refill; Absent tenderness or calf tenderness Back Exam Back exam: Present normal inspection and full ROM; Absent tenderness Neurological Exam Neurological exam: Present alert and oriented X3 Psychiatric Psychiatric exam: Present normal affect and normal mood Skin Skin exam: Present warm, dry, intact and normal color Lymphatic Lymphatic Findings: no adenopathy Medical Decision Making Medical Records Medical records reviewed: No I reviewed the patient's medical records. Wade Inquiry Pt receiving controlled substance: No Vital Signs: 03/23/23 08:32 Temperature 98.2 F Temperature Source Oral Pulse Rate [Right] 85 Respiratory Rate 16 Blood Pressure [Right Arm] 128/81 Blood Pressure Mean [Right Arm] 96 Blood Pressure Source [Right Arm] Automatic Cuff Blood Pressure Position [Right Arm] Sitting 02 Sat by Pulse Oximetry 98 Oxygen Delivery Method Room Air
[2023-03-23 08:44] LABS: UTC Influenza A Antigen Negative (Negative); UTC Influenza B Antigen Negative (Negative); UTC Strep Screen (Rapid) Negative (Negative)
[2023-03-23 08:52] VITALS: BP 128/81; PULSE 85; RESP 16; TEMP 36.8
[2023-03-23 08:57] VITALS: BP 128/81; PULSE 85; RESP 18; TEMP 36.8; O2SAT 98
== END 2023-03-23 08:57 | disposition home or self-care (01) ==
PROVIDERS: Emergency Provider Nurse Practitioner Family; PCP Physician Assistant
DX: J01.90 Acute sinusitis, unspecified (principal); R07.0 Pain in throat; R11.0 Nausea; R05.9 Cough, unspecified
CPT/HCPCS: 87804; 87880; 99212; 99214; G0463

== ENCOUNTER 2023-04-24 11:40 | Emergency (ER) | payer OTHER, SELFPAY ==
[2023-04-24 11:50] VITALS: BP 147/90; PULSE 94; RESP 18; TEMP 37.1; O2SAT 99; BMI 37.8
--- NOTE | 2023-04-24 11:57 | ED_ITS ---
Discharge Plan Disposition Patient Disposition: Home, Self-Care Condition: Good Prescriptions Prescriptions: New benzonatate 100 mg capsule 100 mg PO TIDP PRN (Reason: Cough) Qty: 30 0RF methylprednisolone 4 mg Tablets,Dose Pack 4 mg PO DIRECTED 6 Days Qty: 21 0RF Rx Instructions: Take 1 pack as directed for 6 days cefdinir 300 mg capsule 300 mg PO BID Qty: 20 0RF Referrals Follow up/Referrals: Bita Tovar PA [Primary Care Provider] - See instructions Activity Restrictions/Add. Instructions Additional Instructions/Restrictions: Drink plenty of fluids. Take tylenol or ibuprofen for pain or fever. Take the medications as directed. Follow up with your regular doctor. GO TO THE ER FOR ANY WORSENING SYMPTOMS Throw your tooth brush away and get a new one. Clinical Impressions Clinical Impression: Strep throat, Bronchitis Stand Alone Forms Stand Alone Forms: Work/School Release Instructions Patient Instructions: Strep Throat, DI for Strep Throat Discharge ED Provider: Mateus Mcneill [facility] General Stated complaint: cough, sore throat Time Seen by Provider: 04/24/23 11:56 History of Present Illness Provider Complaint: She states that for the past 3 days she has had sore throat, fever, chills, and malaise. Related Data Previous Rx's Medication Instructions Recorded benzonatate 100 mg capsule 100 mg PO TIDP PRN Cough #30 caps 04/24/23 cefdinir 300 mg capsule 300 mg PO BID #20 caps 04/24/23 methylprednisolone 4 mg tablets in 4 mg PO DIRECTED 6 days #21 tabs 04/24/23 a dose pack Allergies Allergy/AdvReac Type Severity Reaction Status Date / Time azithromycin [AZITHROMYCIN] Allergy Intermediate I-HIVES Verified 04/24/23 12:05 [facility] Disclaimer: The information contained in this section may have been updated after the patient was seen, as this information can be updated by other users. 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 Abnormal cervical Papanicolaou smear Furuncle Surgical History H/O tubal ligation History of appendectomy History of cholecystectomy Family History Other Diabetes Social History Smoking Status: Former smoker second hand exposure: No alcohol intake: never substance use type: denies use current occupational status: employed Travel in the last 8 weeks: None household members: significant other and children housing: house number of children: 2 current occupation: [employer] current occupational exposures/hazards: No caffeine: Yes ROS Obtained: Yes All systems reviewed & no additional complaints except as documented Constitutional Constitutional: Reports chills and Reports fever(s) Eyes Eyes: Denies eye discharge ENT Ears, Nose, Mouth, and Throat: Reports as per HPI Cardiovascular Cardiovascular: Denies chest pain Respiratory Respiratory: Denies chest congestion and Reports cough Gastrointestinal Gastrointestingal: Reports nausea; Denies abdominal pain, constipation, cramping, diarrhea or vomiting Musculoskeletal Musculoskeletal: Denies arthralgias Integumentary/Breasts Skin/Breast: Denies rash Neurologic Neurologic: Denies paresthesias Physical Exam General General appearance: alert and in no apparent distress Head Head exam: atraumatic, normocephalic and normal inspection Eye Eye exam: Present normal appearance, PERRL and EOMI ENT ENT exam: Present mucous membranes moist and normal external ear exam Expanded ENT Exam TM/Canal exam: Bilateral TM: erythema and bulging Nose exam: Absent sinus tenderness Mouth exam: Present normal external inspection; Absent drooling Teeth exam: Present normal inspection Throat exam: Present tonsillar erythema, tonsillomegaly and tonsillar exudate Neck Neck exam: Present normal inspection, full ROM and trachea midline; Absent tenderness, meningismus or lymphadenopathy Chest Chest inspection: Present normal inspection and symmetric chest wall rise; Absent tenderness Respiratory Respiratory exam: Present normal lung sounds bilaterally; Absent respiratory distress, wheezes, stridor or accessory muscle use Cardiovascular Cardiovascular exam: Present regular rate and normal rhythm; Absent systolic murmur or diastolic murmur Abdominal Exam Abdominal exam: Present soft and normal bowel sounds; Absent distention, tenderness, guarding, rebound or rigidity Extremities Exam Extremities exam: Present normal inspection and normal capillary refill; Absent calf tenderness Back Exam Back exam: Present normal inspection and full ROM; Absent tenderness, CVA tenderness (R) or CVA tenderness (L) Neurological Exam Neurological exam: Present alert, oriented X3 and CN II-XII intact Psychiatric Psychiatric exam: Present normal affect and normal mood Skin Skin exam: Present warm, dry, intact and normal color Medical Decision Making Medical Records Medical records reviewed: No I reviewed the patient's medical records. Wade Inquiry Pt receiving controlled substance: No Lab Data Lab results reviewed: Yes I reviewed the patient's lab results.
[2023-04-24 12:17] LABS: UTC Strep Screen (Rapid) Positive (Negative)
[2023-04-24 12:59] VITALS: BP 147/90; PULSE 94; RESP 18; TEMP 37.1; O2SAT 99
[2023-04-24 13:04] LABS: Coronavirus 19, PCR Not Detected (NotDetected); Influenza A, PCR Not Detected (NotDetected)
[2023-04-24 14:07] LABS: Influenza B, PCR Detected (NotDetected)
== END 2023-04-24 12:59 | disposition home or self-care (01) ==
PROVIDERS: Emergency Provider Nurse Practitioner Family; PCP Physician Assistant
DX: J10.1 Influenza due to other identified influenza virus with other respiratory manifestations (principal); J02.0 Streptococcal pharyngitis; R07.0 Pain in throat; J20.9 Acute bronchitis, unspecified; R50.9 Fever, unspecified
CPT/HCPCS: 87636; 87880; 99212; 99214; G0463

== ENCOUNTER 2023-05-05 21:59 | Outpatient (CLI) | payer OTHER, SELFPAY | END 2023-05-05 23:59 | LOC: LAB.DROPOF 22:00 | PROVIDERS: PCP Nurse Practitioner Family; Visit Provider Nurse Practitioner Family | DX: R05.3 Chronic cough (principal) ==

== ENCOUNTER 2023-05-19 13:43 | Emergency (ER) | payer OTHER, SELFPAY ==
[2023-05-19 13:44] VITALS: BP 141/72; PULSE 115; RESP 18; TEMP 36.8; O2SAT 97; BMI 38.0
--- NOTE | 2023-05-19 13:56 | XR_ITS ---
PROCEDURE INFORMATION: Exam: XR Chest Exam date and time: 05/19/2023 1:54 PM Age: 33 years old Clinical indication: Cough TECHNIQUE: Imaging protocol: Radiologic exam of the chest. Views: 2 views. COMPARISON: CR XR CHEST 2V 03/05/2021 4:37 PM FINDINGS: Lungs: No evidence of acute airspace infiltrate. No pulmonary edema. Pleural spaces: No significant pleural effusion. No pneumothorax. Heart/Mediastinum: Cardiomediastinal silouhette is within normal limits. Bones/joints: No evidence of acute osseous abnormality. IMPRESSION: No evidence of acute cardiopulmonary disease.
--- NOTE | 2023-05-19 14:03 | ED_ITS ---
Discharge Plan Disposition Patient Disposition: Home, Self-Care Condition: Good Prescriptions Prescriptions: New cetirizine 10 mg tablet 10 mg PO DAILY Qty: 30 2RF Referrals Follow up/Referrals: Bita Tovar PA [Primary Care Provider] - See instructions Activity Restrictions/Add. Instructions Additional Instructions/Restrictions: Stop taking Bromfed as this may be what is elevating your pulse. Follow up with primary care provider is symptoms worsen. Will call with chest x-ray results. Clinical Impressions Clinical Impression: Upper respiratory tract infection Qualifiers: URI type: unspecified viral URI Qualified Code(s): J06.9 - Acute upper r espiratory infection, unspecified Instructions Patient Instructions: DI for Cough -- Adult, DI for Viral Upper Respiratory Infection -- Adult, How to Perform Postsurgical Deep Breathing and Coughing Discharge ED Provider: Caitlyn Butcher [facility] General Stated complaint: soa, cough Mode of Arrival: Ambulatory Source of Information: Patient Limitations: No Limitations Time Seen by Provider: 05/19/23 14:04 Description of Symptoms (Recalled from Triage Doc. by RN): Pt's symptoms are cough, and low grade fever. Pt had flu and strep last month. 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 She was treated with cefdinir, medrol dose gato, and Tessalon Perles. She states that the Perles did not help at all. She states that she completed her antibiotics on May 03 and was in to her PCP on May 04 with fever, cough, and SOA. She states that she did not have a chest x-ray, but was treated with a shot of Rocephin and Dexamethasone. She was given a prescription for Bromfed, prednisone, and Doxycycline. She states that she took 7 days of the Doxycycline and then she broke out in a rash all over her face and stopped taking the medication. She states that she has continued to cough the entire time and it seems to be worse. She is worried that she has pneumonia and wishes to have a chest x-ray. She states that her pulse has been elevated and normally in the 120s and her sats have been around 97%. She states that she has coughed so much that the right side of her back hurts now. Related Data Previous Rx's Medication Instructions Recorded cetirizine 10 mg tablet 10 mg PO DAILY #30 tabs 05/19/23 Allergies Allergy/AdvReac Type Severity Reaction Status Date / Time azithromycin [AZITHROMYCIN] Allergy Intermediate I-HIVES Verified 05/05/23 10:21 doxycycline Allergy Rash Verified 05/19/23 13:59 Worker's Comp Is this a Worker's Comp case?: No [facility] Disclaimer: The information contained in this section may have been updated after the patient was seen, as this information can be updated by other users. 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 Abnormal cervical Papanicolaou smear Furuncle Surgical History H/O tubal ligation History of appendectomy History of cholecystectomy Family History Other Diabetes Social History Smoking Status: Former smoker second hand exposure: No alcohol intake: never substance use type: denies use current occupational status: employed Travel in the last 8 weeks: None household members: significant other and children housing: house number of children: 2 current occupation: [employer] current occupational exposures/hazards: No caffeine: Yes ROS Obtained: Yes All systems reviewed & no additional complaints except as documented Constitutional Constitutional: Reports system reviewed and no additional complaints, except as documented and Reports malaise Eyes Eyes: Reports system reviewed and no additional complaints, except as documented ENT Ears, Nose, Mouth, and Throat: Reports system reviewed and no additional complaints, except as documented and Reports nasal discharge Cardiovascular Cardiovascular: Reports system reviewed and no additional complaints, except as documented Respiratory Respiratory: Reports system reviewed and no additional complaints, except as documented, Reports shortness of breath, Reports cough and Reports pain with cough Gastrointestinal Gastrointestingal: Reports system reviewed and no additional complaints, except as documented Genitourinary Female Genitourinary: Reports system reviewed and no additional complaints, except as documented Musculoskeletal Musculoskeletal: Reports system reviewed and no additional complaints, except as documented Integumentary/Breasts Skin/Breast: Reports system reviewed and no additional complaints, except as documented Neurologic Neurologic: Reports system reviewed and no additional complaints, except as documented Endocrine Endocrine: Reports system reviewed and no additional complaints, except as documented Hematologic/Lymphatic Henatologic/Lymphatic: Reports system reviewed and no additional complaints, except as documented Allergic/Immunologic Allergic/Immunologic: Reports system reviewed and no additional complaints, except as documented Physical Exam General General appearance: alert and in no apparent distress Head Head exam: atraumatic and normocephalic Eye Eye exam: Present normal appearance Expanded ENT Exam External ear exam: Present normal external inspection Nose exam: Absent sinus tenderness Nasal speculum exam: Bilateral: other (clear drainage noted) Mouth exam: Present normal external inspection Teeth exam: Present normal inspection Throat exam: Present normal inspection Neck Neck exam: Present normal inspection; Absent lymphadenopathy Chest Chest inspection: Present normal inspection and symmetric chest wall rise Respiratory Respiratory exam: Present other (course sounds bilateral lower lobes.) Cardiovascular Cardiovascular exam: Present normal rhythm and tachycardia Abdominal Exam Abdominal exam: Present soft and normal bowel sounds Extremities Exam Extremities exam: Present normal inspection Back Exam Back exam: Present normal inspection Neurological Exam Neurological exam: Present alert and oriented X3 Psychiatric Psychiatric exam: Present normal affect and normal mood Skin Skin exam: Present warm, dry and intact Lymphatic Lymphatic Findings: no adenopathy Medical Decision Making Wade Inquiry Pt receiving controlled substance: No Wade was queried for this patient: No Vital Signs: 05/19/23 13:44 Temperature 98.3 F Temperature Source Oral Pulse Rate [Right Radial] 115 H Respiratory Rate 18 Blood Pressure [Right Arm] 141/72 H Blood Pressure Mean [Right Arm] 95 Blood Pressure Source [Right Arm] Automatic Cuff Blood Pressure Position [Right Arm] Sitting 02 Sat by Pulse Oximetry 97 Oxygen Delivery Method Room Air Orders (Tests/Meds): ORDERS Category Date Time Status Chest XR 2 view (NOT portable) [XR chest 2V] Stat Exams 05/19/23 13:56 Ordered
[2023-05-19 14:44] VITALS: BP 141/72; PULSE 115; RESP 18; TEMP 36.8; O2SAT 97
== END 2023-05-19 14:44 | disposition home or self-care (01) ==
PROVIDERS: Emergency Provider Nurse Practitioner Family; PCP Physician Assistant
DX: R05.9 Cough, unspecified (principal); R06.02 Shortness of breath; J06.9 Acute upper respiratory infection, unspecified; B34.9 Viral infection, unspecified; Z87.891 Personal history of nicotine dependence
CPT/HCPCS: 71046; 99212; 99214; G0463

== ENCOUNTER 2023-05-21 08:02 | Emergency (ER) | payer OTHER, SELFPAY ==
[2023-05-21 08:15] VITALS: BP 149/94; PULSE 118; RESP 21; TEMP 37.1; O2SAT 99; BMI 37.8
--- NOTE | 2023-05-21 08:26 | ED_ITS ---
Discharge Plan Disposition Patient Disposition: Home, Self-Care Condition: Good Prescriptions Prescriptions: No Action cetirizine 10 mg tablet 10 mg PO DAILY Qty: 30 2RF Referrals Follow up/Referrals: Bita Tovar PA [Primary Care Provider] - See instructions Activity Restrictions/Add. Instructions Additional Instructions/Restrictions: *Monitor Temp, Over the counter Motrin or Tylenol as directed/as needed Tylenol every 4 hours and Motrin every 6 hours (as long as your family doctor has told you that you can take it) for fever or pain. and straight to ER if unable to lower temp less than 101.0 after medication given *Warm salt water gargles may help to soothe the throat *Throat Lozenges? *Warm fluids like tea with honey may help to soothe the throat? *Sleep elevated *Humidifier/Vaporizer *Your throat swab was sent for culture. Those results are typically sent to your primary care. Be sure to follow up in 2-3 days with your family doctor/primary care physician if no improvement so they can review those result and treat if necessary. If you don?t have a primary care doctor, I recommend you get one but in the mean time, you will have to return to a walk in clinic Follow up IMMEDIATELY for new or worsening symptoms or no Noticeable improvement over the next 48-72 hours. 911 for difficulty breathing or swallowing Clinical Impressions Clinical Impression: Viral upper respiratory infection Instructions Patient Instructions: Sore Throat Discharge ED Provider: Zaira Hairston [facility] General Stated complaint: sore throat, strep Mode of Arrival: Ambulatory Source of Information: Patient Limitations: No Limitations Time Seen by Provider: 05/21/23 08:26 Description of Symptoms (Recalled from Triage Doc. 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 also so she came in to get tested for strep Related Data Previous Rx's Medication Instructions Recorded cetirizine 10 mg tablet 10 mg PO DAILY #30 tabs 05/19/23 Allergies Allergy/AdvReac Type Severity Reaction Status Date / Time azithromycin [AZITHROMYCIN] Allergy Intermediate I-HIVES Verified 05/05/23 10:21 doxycycline Allergy Rash Verified 05/19/23 13:59 Worker's Comp Is this a Worker's Comp case?: No [facility] Disclaimer: The information contained in this section may have been updated after the patient was seen, as this information can be updated by other users. 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 Abnormal cervical Papanicolaou smear Furuncle Surgical History H/O tubal ligation History of appendectomy History of cholecystectomy Family History Other Diabetes Social History Smoking Status: Former smoker second hand exposure: No alcohol intake: never substance use type: denies use current occupational status: employed Travel in the last 8 weeks: None household members: significant other and children housing: house number of children: 2 current occupation: [employer] current occupational exposures/hazards: No caffeine: Yes ROS Obtained: Yes All systems reviewed & no additional complaints except as documented and Yes Systems reviewed as appropriate & no additional complaints except as documented Constitutional Constitutional: Reports system reviewed and no additional complaints, except as documented and Reports as per HPI ENT Ears, Nose, Mouth, and Throat: Reports system reviewed and no additional complaints, except as documented, Reports as per HPI and Reports sore throat Cardiovascular Cardiovascular: Reports system reviewed and no additional complaints, except as documented and Reports as per HPI Respiratory Respiratory: Reports system reviewed and no additional complaints, except as documented, Reports as per HPI and Reports cough Gastrointestinal Gastrointestingal: Reports system reviewed and no additional complaints, except as documented and as per HPI Physical Exam General General appearance: alert and in no apparent distress ENT ENT exam: Present mucous membranes moist Expanded ENT Exam Nose exam: Absent sinus tenderness Throat exam: Present tonsillar erythema Respiratory Respiratory exam: Present normal lung sounds bilaterally; Absent respiratory distress or wheezes Cardiovascular Cardiovascular exam: Present regular rate, normal rhythm and normal heart sounds Neurological Exam Neurological exam: Present alert, oriented X3 and normal gait Medical Decision Making Wade Inquiry Pt receiving controlled substance: No Wade was queried for this patient: No Vital Signs: 05/21/23 08:15 Temperature 98.7 F Temperature Source Oral Pulse Rate [Left Brachial] 118 H Respiratory Rate 21 Blood Pressure [Left Arm] 149/94 H Blood Pressure Mean [Left Arm] 112 Blood Pressure Source [Left Arm] Automatic Cuff Blood Pressure Position [Left Arm] Sitting 02 Sat by Pulse Oximetry 99 Oxygen Delivery Method Room Air Lab Data Lab results reviewed: Yes I reviewed the patient's lab results.
[2023-05-21 08:40] LABS: UTC Strep Screen (Rapid) Negative (Negative)
[2023-05-21 08:42] VITALS: BP 149/94; PULSE 118; RESP 21; TEMP 37.1; O2SAT 99
== END 2023-05-21 08:46 | disposition home or self-care (01) ==
PROVIDERS: Emergency Provider Nurse Practitioner; PCP Physician Assistant
DX: R07.0 Pain in throat (principal); B34.9 Viral infection, unspecified
CPT/HCPCS: 87880; 99212; 99213; G0463

== ENCOUNTER 2023-09-14 13:44 | Emergency (ER) | payer OTHER, SELFPAY ==
[2023-09-14 13:50] VITALS: BP 133/80; PULSE 77; RESP 19; TEMP 36.7; O2SAT 100; BMI 37.4
[2023-09-14 14:07] LABS: UTC Strep Screen (Rapid) Positive (Negative)
--- NOTE | 2023-09-14 14:23 | ED_ITS ---
Discharge Plan Disposition Patient Disposition: Home, Self-Care Condition: Good Prescriptions Prescriptions: New amoxicillin 875 mg tablet 875 mg PO BID Qty: 20 0RF No Action cetirizine 10 mg tablet 10 mg PO DAILY Qty: 30 2RF Referrals Follow up/Referrals: Bita Tovar PA [Primary Care Provider] - See instructions Activity Restrictions/Add. Instructions Additional Instructions/Restrictions: *Monitor Temp, Over the counter Motrin or Tylenol as directed/as needed Tylenol every 4 hours and Motrin every 6 hours (as long as your family doctor has told you that you can take it) for fever or pain. and straight to ER if unable to lower temp less than 101.0 after medication given *Warm salt water gargles may help to soothe the throat *Throat Lozenges? *Warm fluids like tea with honey may help to soothe the throat? *Sleep elevated *Humidifier/Vaporizer *If you did not take Penicillin shot or was unable to, start taking antibiotic immediately and make sure that you take it for the FULL length of time although you should start to feel better in 24-48 hours *change toothbrush and toothpaste 24-48 hours after starting to take antibiotics so you do not reinfect yourself Monitor Temp. Tylenol and/or Ibuprofen as needed. ER if fever is no less than 101 despite alternating Tylenol and Ibuprofen * Encourage fluids, water, Gatorade, powerade, pedialyte if /toddler/or child *Cold fluids, popsicles and ice cream may feel good on his throat Follow up IMMEDIATELY for new or worsening symptoms or no Noticeable improvement over the next 48-72 hours. 911 for difficulty breathing or swallowing Clinical Impressions Clinical Impression: Strep throat Instructions Patient Instructions: DI for Strep Throat, Strep Throat Print Language Print Language: Israeli Discharge ED Provider: Zaira Hairston [facility] HPI General Stated complaint: sore throat strep exposure Mode of Arrival: Ambulatory Source of Information: Patient Limitations: No Limitations Time Seen by Provider: 09/14/23 14:23 Description of Symptoms (Recalled from Triage Doc. by RN): PATIENT C/O SORE THROAT AND HEADACHE THAT STARTED OVER THE WEEKEND. 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 States that she has been having sore throat and headache that started over the weekend and no better today so she came in Related Data Previous Rx's ?Medication ?Instructions ?Recorded cetirizine 10 mg tablet 10 mg PO DAILY #30 tabs 05/19/23 amoxicillin 875 mg tablet 875 mg PO BID #20 tabs 09/14/23 Allergies Allergy/AdvReac Type Severity Reaction Status Date / Time azithromycin [AZITHROMYCIN] Allergy Intermediate I-HIVES Verified 05/05/23 10:21 doxycycline Allergy Rash Verified 05/19/23 13:59 Worker's Comp Is this a Worker's Comp case?: No [facility] Disclaimer: The information contained in this section may have been updated after the patient was seen, as this information can be updated by other users. 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 Abnormal cervical Papanicolaou smear Furuncle Surgical History H/O tubal ligation History of appendectomy History of cholecystectomy Family History Other Diabetes Social History Smoking Status: Former smoker second hand exposure: No alcohol intake: never substance use type: denies use current occupational status: employed Travel in the last 8 weeks: None household members: significant other and children housing: house number of children: 2 current occupation: [employer] current occupational exposures/hazards: No caffeine: Yes ROS Obtained: Yes All systems reviewed & no additional complaints except as documented and Yes Systems reviewed as appropriate & no additional complaints except as documented Constitutional Constitutional: Reports system reviewed and no additional complaints, except as documented, Reports as per HPI and Reports headache(s) ENT Ears, Nose, Mouth, and Throat: Reports system reviewed and no additional complaints, except as documented, Reports as per HPI, Reports headache(s) and Reports sore throat Cardiovascular Cardiovascular: Reports system reviewed and no additional complaints, except as documented and Reports as per HPI Neurologic Neurologic: Reports headache(s) Physical Exam General General appearance: alert and in no apparent distress Expanded ENT Exam Nose exam: Absent sinus tenderness Throat exam: Present tonsillar erythema Respiratory Respiratory exam: Present normal lung sounds bilaterally; Absent respiratory distress or wheezes Cardiovascular Cardiovascular exam: Present regular rate, normal rhythm and normal heart sounds Neurological Exam Neurological exam: Present alert, oriented X3 and normal gait Medical Decision Making Wade Inquiry Pt receiving controlled substance: No Wade was queried for this patient: No Vital Signs: 09/14/23 13:50 Temperature 98.1 F Temperature Source Oral Pulse Rate [Left Brachial] 77 Respiratory Rate 19 Blood Pressure [Left Arm] 133/80 Blood Pressure Mean [Left Arm] 97 Blood Pressure Source [Left Arm] Automatic Cuff Blood Pressure Position [Left Arm] Sitting 02 Sat by Pulse Oximetry 100 Oxygen Delivery Method Room Air Lab Data Lab results reviewed: Yes I reviewed the patient's lab results. Lab Results 09/14/23 14:03: Strep Scn Rapid Clinic Positive A
[2023-09-14 14:40] VITALS: BP 133/80; PULSE 77; RESP 19; TEMP 36.7; O2SAT 100
== END 2023-09-14 14:43 | disposition home or self-care (01) ==
PROVIDERS: Emergency Provider Nurse Practitioner; PCP Physician Assistant
DX: J02.0 Streptococcal pharyngitis (principal); R51.9 Headache, unspecified
CPT/HCPCS: 87880; 99212; 99214; G0463

== ENCOUNTER 2023-09-28 15:46 | Outpatient (CLI) | payer OTHER, SELFPAY ==
--- NOTE | 2023-09-28 15:46 | US_ITS ---
PROCEDURE: US TRANSVAGINAL CLINICAL INDICATION: pelvic pain COMPARISON: US US TRANSVAGINAL from 04/13/2020 FINDINGS: Transvaginal sonographic images of the pelvis were obtained. UTERUS: 8.9 cm x 4.3 cmx 4.9cm anteverted with a combined endometrial thickness of 9.1mm. There is an anterior fibroid measuring 1.9 cm x 1.7 cm x 1.8 cm. There is a large fluid-filled area in the cervix measuring 2.7 cm x 1.3 cm. This could represent a large nabothian cyst or possibly fluid in the cervix. There is a 2nd smaller nabothian cyst in the cervix. LEFT OVARY: 2.6 cmx1.7 cmx1.4cm with a volume of 3.2ml. Difficult to visualize but appears to contain multiple small peripheral follicles. RIGHT OVARY: 3.5cmx 2.5cmx3.1cm with a volume of 14ml. There is a follicle measuring 2.3 cm. There are several other small peripheral follicles. Both ovaries are seen and appear normal. Doppler flow to both ovaries are seen. There is no fluid in the cul-de-sac. IMPRESSION: 1. Anteverted uterus normal in shape and size. The endometrium measures 9.1 mm. 2. There is an anterior fibroid measuring 1.9 cm. 3. There is a large fluid-filled area measuring up to 2.7 cm in size within the cervix. This could represent either fluid in the cervix or a nabothian cyst. 4. Both ovaries are seen and appear normal. There is a 2.3 cm follicle in the right ovary. 5. Left ovary is more difficult to see due to position. Dictated by: Guero Brewer MD 09/28/2023 17:11 Guero Brewer MD in OV 09/28/2023 17:11
== END 2023-09-28 23:59 | disposition home or self-care (01) ==
LOC: RAD 15:46
PROVIDERS: PCP Physician Assistant; Visit Provider Nurse Practitioner Obstetrics & Gynecology
DX: R10.2 Pelvic and perineal pain (principal)
CPT/HCPCS: 76830

== ENCOUNTER 2023-12-09 17:32 | Emergency (ER) | payer OTHER, SELFPAY ==
[2023-12-09 17:35] VITALS: BP 131/85; PULSE 102; RESP 20; TEMP 37.3; O2SAT 100; BMI 36.8
--- NOTE | 2023-12-09 17:52 | EXP.UTC ---
Discharge Plan Disposition Patient Disposition: Home, Self-Care Condition: Good Prescriptions Prescriptions: New amoxicillin 500 mg tablet 500 mg PO BID 10 Days Qty: 20 0RF fluticasone propionate 50 mcg/actuation spray,suspension 1 spray intranasal DAILY Qty: 16 0RF Referrals Follow up/Referrals: Bita Tovar PA [Primary Care Provider] - See instructions Activity Restrictions/Add. Instructions Additional Instructions/Restrictions: Start antibiotic as soon as possible and be sure to take as ordered for full length of time even though he should start feeling better in 24-48 hours. Tylenol or Motrin as needed for pain or fever Encourage fluids, water, Gatorade, Powerade, Pedialyte if infant/toddler/child Warm compresses often helps when placed over ear Return immediately for new or worsening symptoms no noticeable improvement in 48-72 hours and in 10-14 days to ensure the ears are return to baseline. Follow-up with primary care Clinical Impressions Clinical Impression: Otitis media, Upper respiratory infection, viral Instructions Patient Instructions: Middle Ear Infection, DI for Viral Upper Respiratory Infection -- Adult Print Language Print Language: Upper Sorbian Discharge ED Provider: Guillaume ([facility])Anh [facility] [place] General Stated complaint: right ear pain Mode of Arrival: Ambulatory Source of Information: Patient Limitations: No Limitations Time Seen by Provider: 12/09/23 17:49 Description of Symptoms (Recalled from Triage Doc. by RN): PATIENT C/O RIGHT EAR PAIN, HEAD AND CHEST CONGESTION FOR THE LAST FEW WEEKS HEENT Symptoms (Recalled from RN notes): Yes Resp Symptoms (Recalled from RN notes): No Skin Symptoms (Recalled from RN notes): No MS Symptoms (Recalled from RN notes): No Functional Status (Recalled from RN notes): WNL History of Present Illness Provider Complaint: 33-year-old female presents for complaints of right ear pain that started a couple days ago, head and chest congestion for a couple weeks Related Data Previous Rx's ?Medication ?Instructions ?Recorded amoxicillin 500 mg tablet 500 mg PO BID 10 days #20 tabs 12/09/23 fluticasone propionate 50 1 spray intranasal DAILY #16 grams 12/09/23 mcg/actuation nasal spray,suspension Allergies Allergy/AdvReac Type Severity Reaction Status Date / Time azithromycin [AZITHROMYCIN] Allergy Intermediate I-HIVES Verified 10/21/23 11:04 doxycycline Allergy Rash Verified 10/21/23 11:04 Worker's Comp Is this a Worker's Comp case?: No [facility] Disclaimer: The information contained in this section may have been updated after the patient was seen, as this information can be updated by other users. 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) Smoking Status: Former smoker second hand exposure: No alcohol intake: never substance use type: denies use current occupational status: employed Travel in the last 8 weeks: None household members: significant other and children housing: house number of children: 2 current occupation: [employer] current occupational exposures/hazards: No caffeine: Yes ROS Obtained: Yes Systems reviewed as appropriate & no additional complaints except as documented Physical Exam General General appearance: alert and in no apparent distress Eye Eye exam: Present normal appearance and PERRL ENT ENT exam: Present normal exam and mucous membranes moist Expanded ENT Exam TM/Canal exam: Right TM: erythema, bulging and loss of landmarks Respiratory Respiratory exam: Present normal lung sounds bilaterally Cardiovascular Cardiovascular exam: Present regular rate and normal rhythm Neurological Exam Neurological exam: Present alert and oriented X3 Skin Skin exam: Present warm and intact Medical Decision Making Medical Records Medical records reviewed: Yes I reviewed the patient's medical records. Screening: Per USPSTF and CDC recommendations, given the prevalence of disease in our region, it is our hospital?s policy to screen for HIV and viral Hepatitis for all patients aged 18 and over and those with ongoing risk factors. Wade Inquiry Pt receiving controlled substance: No Wade was queried for this patient: No Vital Signs: 12/09/23 17:35 Temperature 99.1 F Temperature Source Oral Pulse Rate [Left Brachial] 102 H Respiratory Rate 20 Blood Pressure [Left Arm] 131/85 Blood Pressure Mean [Left Arm] 100 Blood Pressure Source [Left Arm] Automatic Cuff Blood Pressure Position [Left Arm] Sitting 02 Sat by Pulse Oximetry 100 Oxygen Delivery Method Room Air
[2023-12-09 18:02] VITALS: BP 131/85; PULSE 102; RESP 20; TEMP 37.3; O2SAT 100
== END 2023-12-09 18:06 | disposition home or self-care (01) ==
PROVIDERS: Emergency Provider Nurse Practitioner Family; PCP Physician Assistant
DX: H66.91 Otitis media, unspecified, right ear (principal); J06.9 Acute upper respiratory infection, unspecified
CPT/HCPCS: 99213; G0381

== ENCOUNTER 2023-12-21 11:45 | Outpatient (CLI) | payer OTHER, SELFPAY ==
[2023-12-21 12:06] LABS: Basophils # 0.1 K/mm3 (0-0.2); Basophils % 1.1 % (0.1-2.0); Eosinophils # 0.2 K/mm3 (0.0-0.4); Eosinophils % 1.8 % (0.1-12.0); Hematocrit 41.7 % (37.0-47.0); Hemoglobin 14.8 g/dL (12.2-16.2); Lymphocytes # 2.9 K/mm3 (0.7-4.5); Lymphocytes % 32.2 % (10-50); Mean Corpuscular HGB Conc 35.6 g/dL (31.8-35.4); Mean Corpuscular Hemoglobin 29.2 pg (27.0-31.2); Mean Corpuscular Volume 81.9 fl (81-99); Mean Platelet Volume 8.4 fl (7.4-10.4); Monocytes # 0.4 K/mm3 (0.1-1.0); Neutrophils # 5.4 K/mm3 (1.8-7.8); Platelet Count 325 K/mm3 (142-424); Red Blood Count 5.09 M/mm3 (4.20-5.40); Red Cell Distribution Width 13.6 % (11.5-17.5); White Blood Count 8.9 K/mm3 (4.8-10.8)
[2023-12-21 12:25] LABS: Albumin Level 4.4 g/dl (3.5-5.0); Chloride 105 mmol/L (98-107); Potassium 4.2 mmoL/L (3.5-5.1); Sodium 136 mmol/L (136-145)
[2023-12-21 12:27] LABS: Blood Urea Nitrogen 12 mg/dl (7-17); Estimated Glomerular Filt Rate 83 ml/min (>60); GFR (African American) 101 ML/MIN (>60)
[2023-12-21 12:28] LABS: Alanine Aminotransferase 19 U/L (12-78); Albumin/Globulin Ratio 1.5 (1.1-1.8); Alkaline Phosphatase 56 U/L (38-126); Anion Gap 12.2 mEq/L (5-15); Aspartate Amino Transferase 23 U/L (14-36); Bilirubin,Total 0.5 mg/dl (0.2-1.3); Calcium 9.3 mg/dl (8.4-10.2); Carbon Dioxide 23 mmol/L (22.0-30.0); Globulin 2.9 g/dL (1.3-3.2); Glucose 104 mg/dl (74-100); Total Protein,Serum 7.3 g/dl (6.3-8.2)
[2023-12-21 12:46] LABS: HCG,Quantitative < 2 mIU/ml (0-5.42)
== END 2023-12-21 23:59 | disposition home or self-care (01) ==
LOC: LAB 11:46
PROVIDERS: PCP Physician Assistant; Visit Provider Nurse Practitioner Obstetrics & Gynecology
DX: R10.2 Pelvic and perineal pain (principal); Z34.90 Encounter for supervision of normal pregnancy, unspecified, unspecified trimester
CPT/HCPCS: 36415; 80053; 84702; 85025; 86850

== ENCOUNTER 2023-12-23 09:44 | Observation (INO) | payer OTHER, SELFPAY ==
[2023-12-23] VITALS (23 sets, daily range): BP systolic 128–153; BP diastolic 83–96; PULSE 92–116; RESP 12–113; TEMP 36.4–43; O2SAT 93–100
[2023-12-23] MEDS: 0.9 % SODIUM CHLORIDE 1000ML 1,000 ML 25 ML IV (06:48)
[2023-12-23] MEDS: CEFAZOLIN SODIUM 2 GM in 0.9 % SODIUM CHLORIDE 100 ML IV (07:27)
[2023-12-23] MEDS: LIDOCAINE 1% W/EPI 1:100,000 20ML VIAL 20 ML (07:50)
[2023-12-23] MEDS: ROPIVACAINE 0.5% 30ML VIAL 300 MG (07:50)
--- NOTE | 2023-12-23 08:29 | EXP.ANES.CKL ---
[facility] Disclaimer: The information contained in this section may have been updated after the patient was seen, as this information can be updated by other users. 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 Pelvic pain Obesity (BMI 30-39.9) Sinusitis Strep throat Bronchitis Upper respiratory tract infection Viral upper respiratory infection Vaginitis Abnormal cervical Papanicolaou smear Furuncle Surgical History History of appendectomy History of cholecystectomy H/O tubal ligation Family History Other Diabetes Social History (Updated 12/23/23 @ 06:22 by Georgette Strong RN) Smoking Status: Former smoker second hand exposure: No alcohol intake: never substance use type: denies use current occupational status: employed Travel in the last 8 weeks: None household members: significant other and children housing: house number of children: 2 current occupation: [employer] current occupational exposures/hazards: No caffeine: Yes [employer] Anesthesia Checklist Patient Identification Patient Identification: Verbal (Name & ) Structural Data Admitted From: Home Planned Operative Procedure/s: [facility] Consent for Planned Operative Procedure(s) Verified: Yes NPO Status Verified Time NPO: 00:00 Additional verifications Anesthesia Reactions: No Hx Blood Transfusions: No Blood Transfusion Reaction: No Airway Assessment Mallampati Score:: Class II C-Spine Mobility Assessed: Yes TMJ Mobility Assessed: Yes Dentition: Good Dentition Neurological Assessment Level of Consciousness: Awake, Alert and Appropriate Anesthesia Plan Anesthesia Risk discussed: Yes Anesthesia Plan: Verified ASA Class: II Anesthesia Type: General
--- NOTE | 2023-12-23 09:40 | P.PNANES_ITS ---
[facility] Anesthesia Record Part I Anesthesia Record I Intake, IV Amount: 1,000 Hydration: Adequate Estimated blood loss (mL): 150 Urine output (mL): 200 Blood Pressure: 153/85 SaO2: 93 Pulse Rate: 105 Airway Patency: Patent Respiratory Rate: 12 Temperature: 99.6 F Patient is:: Awake and Stable Stable to PACU at:: 09:35
[2023-12-23] MEDS: MORPHINE 2MG/ML SYRINGE 2 MG IV (10:05)
--- NOTE | 2023-12-23 10:10 | HMH.PHAINT1 ---
Pharmacy Intervention Comments: MEDICATION RECONCILIATION COMPLETED ON PATIENT USING EXTERNAL FILL HISTORY FROM PHARMACY. -KAELYN HERNÁNDEZ, NELSOND
--- NOTE | 2023-12-23 10:15 | PC.NURSE ---
Report received from Yary (radio tester)
--- NOTE | 2023-12-23 10:30 | PC.NURSE ---
Pt arrived to unit at this time.
[2023-12-23 10:38] LABS: Microscopic,Cath URINE MICROSCOPIC (MICROSCOPIC)
--- NOTE | 2023-12-23 10:39 | P.OP_ITS ---
Date of procedure: 12/23/23 Pre-op Diagnosis:: Pelvic pain, dyspareunia, adenomyosis, hematometra. Post-op Diagnosis:: Pelvic pain, dyspareunia, adenomyosis, Procedure performed:: Laparoscopic-assisted vaginal hysterectomy Surgeon:: Guero Brewer MD Charge Aide(s):: Dr. Montes De Oca DIRECTOR CARDIOLOGY:: Emiliano Garces Anesthesia: GETA Estimated blood loss (mL): 150 Clinical Note:: She is a 33-year-old lady who complains of pain with intercourse as well as constant pelvic pain. On examination her uterus was quite tender. She did have a hematometra that I had drained a month or so ago. She continued to have dyspareunia, pelvic pain and as result of that she was offered laparoscopic- assisted vaginal hysterectomy. She also had some left-sided pain and we discussed removal of her left ovary. Operative findings:: She had an anteverted bulky uterus. The deep pelvis appeared normal. The fallopian tubes have previously been surgically removed. Both left and right ovaries appeared completely normal. There was no evidence of any adhesions. As a result of that we elected to leave her ovaries in place. Operative note:: She was taken to the operating room where general anesthesia was found be adequate. She was prepped and draped in normal sterile fashion in the semilithotomy position. A weighted speculum was placed in the vagina and the anterior lip of the cervix was grasped with a tenaculum. An acorn uterine manipulator was then placed within the cervical os. I then changed gloves. I injected 10 cc of 0.5% ropivacaine around the umbilicus and made a small incision within the umbilicus. I inserted a Veress needle into the abdominal cavity. The abdominal cavity was then insufflated with carbon dioxide gas to a pressure of 20 mmHg. I then inserted an 11 mm trocar under direct vision. I injected through and through the pubic hairline, made a small incision here and inserted a 5 mm trocar under direct vision. I identified the inferior epigastric arteries on the left side, went lateral to these and injected through and through. I then made a small incision and inserted an 11 mm trocar under direct vision. A similar 11 mm trocar was placed on the right side. The left round ligament was then grasped and cut through with harmonic scalpel. This was followed by opening up the peritoneum anteriorly to the midline. This is followed by cutting through the left utero-ovarian ligament. I used Harmonic scalpel on the coagulation mode. I then took down the posterior aspect of the broad ligament to the level of the uterosacral ligament. I then skeletonized the uterine arteries on the left side and placed hemoclips on these. Using the harmonic scalpel on coagulation mode adjacent to the cervix I then took down these uterine arteries. I then further freed up the bladder anteriorly and laterally on the left side. I then turned my attention to the right side where I grasped the right round ligament. I then cut through the right round ligament. I then took down the anterior peritoneum to the midline joining up with the other side. I further dissected the bladder off. The posterior aspect of the right broad ligament was then taken down with harmonic scalpel. I skeletonized the uterine arteries on the right side. I applied hemoclips to the uterine arteries and staying adjacent to the cervix on the right side I took down the uterine arteries with harmonic scalpel on coagulation mode. I further freed up the bladder. We then assured hemostasis. After once again assuring hemostasis we then turned our attention to the vaginal portion of the surgery. The patient was placed in the lithotomy position and a weighted speculum was placed in the vagina. The anterior and posterior lip of the cervix were grasped with Neves tenacula. I then injected 20 cc of 1% Xylocaine with epinephrine circumferentially about the cervix. I then circumscribed the cervix. I opened up in the posterior cul-de-sac using Abraham scissors. I then placed a long weighted speculum through the defect. The left uterosacral ligament was then clamped cut and suture-ligated and tagged. This was followed by the left cardinal ligament which was clamped cut and suture-ligated. I then clamped cut and suture-ligated and tagged the right uterosacral ligament. This was followed by the right cardinal ligament which was clamped cut and suture-ligated. I then grasped the anterior vaginal mucosa and using both sharp and blunt dissection dissected off the bladder. I then opened sharply into the anterior cul-de-sac. A Elmira retractor was placed through this defect. Both left and right uterine arteries were then clamped cut and suture-ligated. This freed up the uterus and it was removed through the vagina. Then inserted a short weighted speculum. Posterior cuff was then closed using running 2-0 Vicryl suture in a locked fashion. I then lysed a Camilo suture using 0 PDS. I passed it through the vagina and the peritoneum and then through the left perirectal fascia. I then plicated across the posterior peritoneum and through the right perirectal fascia. This was then passed through the peritone um and vagina and left to be tied at the end. The vaginal cuff was then closed using running 0 Vicryl suture in a locked fashion from left to right from anterior to posterior. A Medina cath was then placed in the bladder. Clear urine was seen to flow. I then changed gloves and once again insufflated the abdominal cavity with carbon dioxide gas. Hemostasis was once again assured and I rinsed the pelvis. I then sprayed Chasity all around the pelvis. I let the gas out of the abdomen and once again hemostasis was assured. The secondary trochars were then removed under direct vision and the sites were hemostatic. The primary trocar and camera were removed together. No bowel was seen to follow. The 11 mm trocar sites were closed deeply with [id number] 2-0 Vicryl suture followed by running subcuticular 4-0 Monocryl suture. 5 mm trocar site was closed with subcuticular 4-0 Monocryl suture. Sterile dressings were applied. The patient tolerated procedure well and was taken to the recovery room in excellent condition. All sponge instrument and needle counts were correct. The estimated blood loss was approximately 150 cc. Condition: stable Disposition: PACU Specimens:: Uterus. Complications:: None
[2023-12-23 10:46] LABS: Appearance,Urine/Cath CLEAR (Clear); Bilirubin,Cath Negative (Negative); Blood, Urine/Cath TRACE-I (Negative); Color,Urine/Cath YELLOW (Yellow); Glucose,Urine/Cath (UA) Negative (Negative); Ketones,Urine/Cath Negative (Negative); Leukocyte Esterase,Cath TRACE (Negative); Nitrate,Cath Negative (Negative); PH,Urine/Cath 6.5 (5.0-8.5); Protein,Urine/Cath 1+ (Negative); Specific Gravity, Urine/Cath >= 1.030 (1.005-1.030); Urobilinogen,Cath 0.2 EU/dl (0.2)
--- NOTE | 2023-12-23 10:49 | P.HP_ITS ---
History of Present Illness *Admission Date: 12/23/23 *Reason for visit:: Dyspareunia, pelvic pain, possible adenomyosis *History of present illness: She is a 33-year-old lady who complains of severe pain with intercourse. She has chronic lower abdominal pain as well as left-sided pain. I suspect she may have adenomyosis. We were also concerned about her left ovary and plan to look at this at the time of her surgery. She is admitted for a laparoscopically assisted vaginal hysterectomy. She has had a previous LEEP procedure as well as a previous bilateral salpingectomy. [facility] Disclaimer: The information contained in this section may have been updated after the patient was seen, as this information can be updated by other users. 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 Pelvic pain Obesity (BMI 30-39.9) Sinusitis Strep throat Bronchitis Upper respiratory tract infection Viral upper respiratory infection Vaginitis Abnormal cervical Papanicolaou smear Furuncle Surgical History History of appendectomy History of cholecystectomy H/O tubal ligation Family History Diabetes Social History Smoking Status: Former smoker second hand exposure: No alcohol intake: never substance use type: denies use current occupational status: employed Travel in the last 8 weeks: None household members: significant other and children housing: house number of children: 2 current occupation: [employer] current occupational exposures/hazards: No caffeine: Yes Other 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 Have you received the Flu Vaccine for this season: Yes Have you received the Pneumonia Vaccine: No Review of Systems Review of Systems Review of systems:: pertinent systems reviewed and negative unless documented below Meds Home Medications and Allergies Home Medications ?Medication ?Instructions ?Recorded ?Confirmed ?Type fluticasone propionate 50 1 spray intranasal DAILY #16 grams 12/09/23 12/23/23 Rx mcg/actuation nasal spray,suspension New Prescriptions to Start Prescriptions: Allergies Allergy/AdvReac Type Severity Reaction Status Date / Time azithromycin [AZITHROMYCIN] Allergy Intermediate I-HIVES Verified 12/23/23 06:23 doxycycline Allergy Rash Verified 12/23/23 06:23 Exam Data for Last 24 hours Vital signs and Labs for Last 24 Hours: Temp Pulse Resp BP Pulse Ox O2 Del Method 97.6 F 102 H 16 150/84 H 96 Room Air 12/23/23 10:05 12/23/23 10:05 12/23/23 10:05 12/23/23 10:05 12/23/23 10:05 12/23/23 10:05 I & O for Last 24 hours: Intake & Output 12/20/23 12/21/23 12/22/23 12/23/23 10:59 11:59 11:59 11:59 Intake Total 1000 / 1000 Balance 1000 / 1000 Weight 218 lb Constitutional Constitutional: no acute distress *Routine HEENT Exam Head: Present normocephalic Eye: Present EOMI and PERRL ENT: Present mucous membranes moist *Routine Neck Exam Neck: Present supple; Absent lymphadenopathy *Routine Respiratory Exam Respiratory: Present CTA bilaterally *Routine Cardiovascular Exam Cardiovascular: Present RRR *Routine Abdominal Exam Abdominal: Present soft and normoactive bowel sounds; Absent tenderness *Routine Rectal Exam Rectal:: deferred *Routine Genitalia Exam Genitalia:: deferred *Routine Extremities Exam Extremities: Absent cyanosis, clubbing or edema *Routine Skin Exam Skin: Present warm; Absent rash *Routine Neurological Exam Neurological: Present alert and oriented X3 Assessment and Plan *Assessment and plan (1) Pelvic pain: Status: Acute Category: Medical Code(s): R10.2 - Pelvic and perineal pain (2) Dyspareunia in female: Status: Acute Category: Medical Code(s): N94.10 - Unspecified dyspareunia (3) Hematometra: Status: Acute Category: Medical Code(s): N85.7 - Hematometra Plan She is admitted for a laparoscopically assisted vaginal hysterectomy.
[2023-12-23] MEDS: HYDROMORPHONE 2MG/ML SYRINGE 1 MG IV (11:00)
[2023-12-23 11:17] LABS: Bacteria,Urine/Cath TRACE /lpf; RBC,Urine/Cath Occasional # /hpf (0-3)
[2023-12-23] MEDS: ACETAMINOPHEN 500MG TAB 1000 MG PO ×2 (12:32→18:24)
[2023-12-23] MEDS: OXYCODONE 5MG IMMEDIATE RELEASE TABLET 10 MG PO ×3 (14:33→21:48)
[2023-12-23] MEDS: SENNOSIDES 8.6MG/DOCUSATE 50MG TABLET 1 TAB PO (14:36)
[2023-12-23] MEDS: SIMETHICONE 80MG CHEWABLE TABLET 160 MG PO (14:53)
[2023-12-23] MEDS: LACTATED RINGERS 1000ML 1,000 ML 125 ML IV (15:38)
[2023-12-23] MEDS: CEFAZOLIN SODIUM 1 GM in 0.9 % SODIUM CHLORIDE 50 ML IV ×2 (15:38→23:52)
[2023-12-23 16:35] LABS: Hematocrit 40.4 % (37.0-47.0); Hemoglobin 13.9 g/dL (12.2-16.2)
[2023-12-23] MEDS: ONDANSETRON 4MG/2ML VIAL 4 MG IV (16:44)
--- NOTE | 2023-12-23 16:45 | PC.NURSE ---
Reassessment completed at this time. No changes noted at this time. Patient has done well today. PRN medication given per APR. Iv infusing without difficulty. Voiding well. Lungs cta and bowel sounds hypoactive. pulses 2+ and no edema noted. Ambulating standby assist. denies any needs voiced.
[2023-12-23] MEDS: POLYETHYLENE GLYCOL 3350 17 GM PACKET PO (21:18)
[2023-12-23] MEDS: KETOROLAC 30MG/ML VIAL 30 MG IV (23:49)
[2023-12-24 00:24] VITALS: BP 123/76; PULSE 103; RESP 14; TEMP 37.1; O2SAT 98
[2023-12-24] MEDS: ACETAMINOPHEN 500MG TAB 1000 MG PO ×2 (00:25→06:32)
[2023-12-24 04:26] VITALS: BP 126/80; PULSE 96; RESP 17; TEMP 37.1; O2SAT 98
--- NOTE | 2023-12-24 04:26 | PC.NURSE ---
Reassessment completed at this time. Patient awake, alert and oriented x4. Heart sounds auscultated at a regular rate and rhythm over left apex. Lung sounds auscultated clear bilaterally and throughout. Bowel sounds normoactive in all 4 quadrants. Patient states she has burped but has not passed flatus or had a bowel movement. Patient reports scant amount vaginal bleeding and feels as though she is emptying her bladder with each void. Lap sites remain asymptomatic and dressing intact with serosanguineous drainage noted and circled over left abdominal site. Patient states she is overall feeling well and pain is well controlled.
--- NOTE | 2023-12-24 04:34 | PC.NURSE ---
Patient ambulating multiple laps in hallway with . Tolerating well and without difficulty.
[2023-12-24] MEDS: KETOROLAC 30MG/ML VIAL 30 MG IV (05:23)
[2023-12-24] MEDS: OXYCODONE 5MG IMMEDIATE RELEASE TABLET 10 MG PO (06:32)
[2023-12-24 07:05] LABS: Basophils % 0.3 % (0.1-2.0); Eosinophils % 0.3 % (0.1-12.0); Hematocrit 37.8 % (37.0-47.0); Hemoglobin 12.6 g/dL (12.2-16.2); Lymphocytes # 2.6 K/mm3 (0.7-4.5); Lymphocytes % 20.3 % (10-50); Mean Corpuscular HGB Conc 33.4 g/dL (31.8-35.4); Mean Corpuscular Hemoglobin 28.3 pg (27.0-31.2); Mean Corpuscular Volume 84.8 fl (81-99); Mean Platelet Volume 8.6 fl (7.4-10.4); Monocytes # 0.8 K/mm3 (0.1-1.0); Monocytes % 5.9 % (1.7-9.3); Neutrophils # 9.4 K/mm3 (1.8-7.8); Neutrophils % 73.2 % (37.0-80.0); Platelet Count 273 K/mm3 (142-424); Red Blood Count 4.46 M/mm3 (4.20-5.40); Red Cell Distribution Width 13.3 % (11.5-17.5); White Blood Count 12.9 K/mm3 (4.8-10.8)
[2023-12-24 07:10] LABS: Anion Gap 9.9 mEq/L (5-15); Blood Urea Nitrogen 8 mg/dl (7-17); Calcium 8.1 mg/dl (8.4-10.2); Carbon Dioxide 21 mmol/L (22.0-30.0); Chloride 108 mmol/L (98-107); Creatinine Clearance Estimated 180 mL/min (50-200); Estimated Glomerular Filt Rate 97 ml/min (>60); GFR (African American) 117 ML/MIN (>60); Glucose 108 mg/dl (74-100); Potassium 3.9 mmoL/L (3.5-5.1); Sodium 135 mmol/L (136-145)
--- NOTE | 2023-12-24 07:31 | P.PNANES_ITS ---
[facility] Anesthesia Record Part II Anesthesia Record Part II Discharge Time: 10:15 Destination: Surgical Day Care (OP Surgery) PACU nurse assessment reviewed?: Yes Patient Condition:: Good Anesthesia Complications:: None Swallowing reflex intact?: Yes Airway Patency: Patent Cyanosis?: No Blood Pressure: 151/86 SaO2: 94 Respiratory Rate: 16 Pulse Rate: 99 Temperature: 97.6 F Mental Status: Alert & Oriented Pain level:: 3 Nausea and/or vomitting:: None Intake, IV Amount: 0 Hydration: Adequate
[2023-12-24 07:32] VITALS: BP 151/86; PULSE 99; RESP 16; TEMP 36.4; O2SAT 94
[2023-12-24 08:45] VITALS: BP 123/70; PULSE 101; RESP 17; TEMP 37.1; O2SAT 98
[2023-12-24] MEDS: POLYETHYLENE GLYCOL 3350 17 GM PACKET PO (08:49)
--- NOTE | 2023-12-24 09:13 | P.DS_ITS ---
General Admission date:: 12/23/23 Discharge date: 12/24/23 HPI HPI HPI: She is a 33-year-old lady who complains of severe pain with intercourse. She has chronic lower abdominal pain as well as left-sided pain. I suspect she may have adenomyosis. We were also concerned about her left ovary and plan to look at this at the time of her surgery. She is admitted for a laparoscopically assisted vaginal hysterectomy. She has had a previous LEEP procedure as well as a previous bilateral salpingectomy. Hospital Course Hospital Course Hospital Course: On December 23, 2023 she underwent a laparoscopically assisted vaginal hysterectomy. We left her ovaries since they look completely normal. She has done well postoperatively and has remained afebrile without her hospitalization. She is eating and drinking and ambulating. She denies any chest pain, shortness of breath or calf tenderness. Her incisions are clean and dry. She will be discharged home to follow-up with me in approximately 2 weeks time. She was given the usual instructions with respect to limiting her activity, driving and sexual activity. She was given instructions with respect to wound care. She was given a prescription for Percocet 5/325 # 20 tablets. She will take ibuprofen as well. Her condition on discharge is stable and improved. Exam Data for Last 24 hours Vital signs and Labs for Last 24 Hours: Temp Pulse Resp BP Pulse Ox O2 Del Method 98.7 F 96 H 16 126/80 98 Room Air 12/24/23 04:26 12/24/23 04:26 12/24/23 07:32 12/24/23 04:26 12/24/23 04:26 12/24/23 06:32 Laboratory Results - last 24 hr 12/23/23 16:06: Hgb 13.9, Hct 40.4 12/23/23 : Urine Color Yellow, Urine Appearance Clear, Urine pH 6.5, Ur Specific [place] >= 1.030, Urine Protein 1+, Urine Glucose (UA) Negative, Urine Ketones Negative, Urine Blood Trace-i, Urine Nitrate Negative, Urine Bilirubin Negative, Urine Urobilinogen 0.2, Ur Leukocyte Esterase Trace, Urine RBC Occasional, Urine WBC 3-5, Ur Squamous Epith Cells 3-5, Urine Bacteria Trace 12/24/23 06:29: WBC 12.9 H D, RBC 4.46, Hgb 12.6, Hct 37.8, MCV 84.8, MCH 28.3, MCHC 33.4, RDW 13.3, Plt Count 273, MPV 8.6, Neut % (Auto) 73.2, Lymph % (Auto) 20.3, [place] % (Auto) 5.9, Eos % (Auto) 0.3, Baso % (Auto) 0.3, Neut # (Auto) 9.4 H, Lymph # (Auto) 2.6, [place] # (Auto) 0.8, Eos # (Auto) 0.0, Baso # (Auto) 0.0, Sodium 135 L, Potassium 3.9, Chloride 108 H, Carbon Dioxide 21 L, Anion Gap 9.9, BUN 8 D, Creatinine 0.70, Estimated Creat Clear 180, Estimated GFR 97, Est GFR ( Amer) 117, Glucose 108 H, Calcium 8.1 L I & O for Last 24 hours: Intake & Output 12/21/23 12/22/23 12/23/23 12/24/23 11:59 11:59 11:59 11:59 Intake Total 1000 / 1000 1437 / 1437 Output Total 1000 / 1000 Balance 1000 / 1000 437 / 437 Weight 218 lb Constitutional Constitutional: no acute distress *Routine HEENT Exam Head: Present normocephalic *Routine Respiratory Exam Respiratory: Present normal respiratory effort, able to speak in complete sentences and symmetric chest movement; Absent accessory muscle use *Routine Cardiovascular Exam Cardiovascular: Present RRR *Routine Abdominal Exam Abdominal: Present soft and normoactive bowel sounds; Absent tenderness Comments: Her incisions are clean and dry. *Routine Extremities Exam Extremities: Present full ROM Results Data Completed and Pending Labs on day of discharge: Labs from last 24 hours 12/24/23 12/23/23 12/23/23 06:29 Unknown 16:06 WBC 12.9 H D RBC 4.46 Hgb 12.6 13.9 Hct 37.8 40.4 MCV 84.8 MCH 28.3 MCHC 33.4 RDW 13.3 Plt Count 273 MPV 8.6 Neut % (Auto) 73.2 Lymph % (Auto) 20.3 Coleman % (Auto) 5.9 Eos % (Auto) 0.3 Baso % (Auto) 0.3 Neut # (Auto) 9.4 H Lymph # (Auto) 2.6 Coleman # (Auto) 0.8 Eos # (Auto) 0.0 Baso # (Auto) 0.0 Sodium 135 L Potassium 3.9 Chloride 108 H Carbon Dioxide 21 L Anion Gap 9.9 BUN 8 D Creatinine 0.70 Estimated Creat Clear 180 Estimated GFR 97 Est GFR ( Amer) 117 Glucose 108 H Calcium 8.1 L Urine Color Yellow Urine Appearance Clear Urine pH 6.5 Ur Specific [place] >= 1.030 Urine Protein 1+ Urine Glucose (UA) Negative Urine Ketones Negative Urine Blood Trace-i Urine Nitrate Negative Urine Bilirubin Negative Urine Urobilinogen 0.2 Ur Leukocyte Esterase Trace Urine RBC Occasional Urine WBC 3-5 Ur Squamous Epith Cells 3-5 Urine Bacteria Trace DS: Diagnosis Discharge Diagnosis (1) Pelvic pain: Status: Acute Code(s): R10.2 - Pelvic and perineal pain (2) Dyspareunia in female: Status: Acute Code(s): N94.10 - Unspecified dyspareunia (3) Hematometra: Status: Acute Code(s): N85.7 - Hematometra Meds Home Medications and Allergies Home Medications ?Medication ?Instructions ?Recorded ?Confirmed ?Type fluticasone propionate 50 1 spray intranasal DAILY #16 grams 12/09/23 12/23/23 Rx mcg/actuation nasal spray,suspension oxycodone-acetaminophen 5 mg-325 1 tab PO Q6H PRN pain #20 tabs 12/24/23 Rx mg tablet New Prescriptions to Start Prescriptions: oxycodone-acetaminophen Guero Brewer Allergies Allergy/AdvReac Type Severity Reaction Status Date / Time azithromycin [AZITHROMYCIN] Allergy Intermediate I-HIVES Verified 12/23/23 06:23 doxycycline Allergy Rash Verified 12/23/23 06:23 Discharge Plan Disposition Patient Disposition: Home, Self-Care Follow up Plan Prescriptions/Medication Reconciliation: New oxycodone-acetaminophen 5-325 mg tablet 1 tab PO Q6H PRN (Reason: pain) Qty: 20 0RF Continued fluticasone propionate 50 mcg/actuation spray,suspension 1 spray intranasal DAILY Qty: 16 0RF Problem Reconciliation Problems Reviewed?: Yes Patient Discharge Instructions ACTIVITY: No heavy lifting DIET: continue same diet Print Language: Slovak Providers Primary Care Provider: Bita Tovar Admit Provider: Guero Brewer Attending Provider: Guero Brewer
--- NOTE | 2023-12-24 09:25 | PC.NURSE ---
IV saline lock discontinued with catheter intact. 2x2 gauze and coban applied to site. Tolerated well.
--- NOTE | 2023-12-24 09:50 | PC.NURSE ---
Discharge instructions given to pt. Verbalized understanding of instructions. Pt's sig other also present.
== END 2023-12-24 10:00 | disposition home or self-care (01) ==
LOC: OB 09:48
PROVIDERS: Admitting Provider Nurse Practitioner Obstetrics & Gynecology; PCP Physician Assistant; Visit Provider Nurse Practitioner Obstetrics & Gynecology
PROC: 0UT9FZZ Resection of Uterus, Via Natural or Artificial Opening With Percutaneous Endoscopic Assistance (ICD-10-PCS; CPT 58550; principal; 2023-12-23 07:30)
DX: N85.7 Hematometra (principal); N94.10 Unspecified dyspareunia; R10.2 Pelvic and perineal pain
CPT/HCPCS: 58550; 36415; 80048; 81001; 85014; 85018; 85025; 96374; G0378; J0690; J1100; J1171; J1885; J2250; J2270; J2405; J3010; J7030; J7120

== ENCOUNTER 2024-01-06 10:26 | Observation (INO) | payer OTHER, SELFPAY ==
--- NOTE | 2024-01-06 10:36 | PC.NURSE ---
pt arrived to floor via wheelchair @[id number]
--- NOTE | 2024-01-06 10:46 | CT_ITS ---
PROCEDURE INFORMATION: Exam: CT Abdomen And Pelvis With Contrast Exam date and time: 01/06/2024 12:08 PM Age: 33 years old Clinical indication: Abdominal pain; Localized; Lower; Prior surgery; Surgery date: 3-7 days post-operative; Surgery type: Partial hysterectomy; Additional info: Suspected pelvic abscess TECHNIQUE: Imaging protocol: Computed tomography of the abdomen and pelvis with contrast. Radiation optimization: All CT scans at this facility use at least one of these dose optimization techniques: automated exposure control; mA and/or kV adjustment per patient size (includes targeted exams where dose is matched to clinical indication); or iterative reconstruction. Contrast material: ISOVUE; Contrast volume: 75 ml; Contrast route: IV; COMPARISON: CT ABDOMEN PELVIS W CON 11/11/2020 2:48 PM FINDINGS: Liver: No focal hepatic lesions. Gallbladder and biliary ducts: There has been a cholecystectomy. Pancreas: No peripancreatic fluid stranding. No main pancreatic ductal dilation. Spleen: Normal. No splenomegaly. Adrenal glands: The adrenal glands are normal. Kidneys and ureters: Nephrograms are symmetric. No nephrolithiasis or hydroureteronephrosis on either side. No solid lesions Stomach and bowel: No bowel wall thickening or distention. Appendix: No evidence of appendicitis. Intraperitoneal space: There is mild amount of fluid in cul-de-sac expected from recent surgery. There is mild enhancement along the pelvic peritoneal reflections. Vasculature: Aorta is nonaneurysmal. Lymph nodes: No evidence of retroperitoneal or mesenteric lymphadenopathy. Urinary bladder: Urinary bladder is unremarkable. Reproductive: Status post hysterectomy. Bones/joints: No acute osseous abnormality. Soft tissues: Unremarkable. IMPRESSION: 1. Status post hysterectomy. 2. There is mild amount of fluid and enhancing along the peritoneal reflections in cul-de-sac expected from recent surgery.
[2024-01-06 10:58] VITALS: BMI 36.3
--- NOTE | 2024-01-06 11:01 | EXP.PHA.CONS ---
Pharmacy Consult Date: 01/06/24 Time: 11:02 Referring provider: DR. BROCK Reason for Consult:: VANCOMYCIN DOSING Allergies Allergy/AdvReac Type Severity Reaction Status Date / Time azithromycin (AZITHROMYCIN) Allergy Intermediate I-HIVES Verified 01/06/24 09:50 doxycycline Allergy Rash Verified 01/06/24 09:50 Home Medications ?Medication ?Instructions ?Recorded ?Confirmed ?Type fluticasone propionate 50 1 spray intranasal DAILY #16 grams 12/09/23 01/06/24 Rx mcg/actuation nasal spray,suspension hydrocortisone 1 % topical cream 1 applic topical TID PRN itching 12/30/23 01/06/24 Rx #28.35 grams New Prescriptions to Start Prescriptions: Height: 1.63 m Weight: 95.906 kg Laboratory Results:: D 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: 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 (Updated 01/06/24 @ 10:28 by Guero Brewer MD) Upper respiratory infection, viral Otitis media Eczema of lower extremity Encounter for gynecological examination (general) (routine) without abnormal findings Insomnia Pelvic pain Obesity (BMI 30-39.9) Sinusitis Strep throat Bronchitis Upper respiratory tract infection Viral upper respiratory infection Vaginitis Abnormal cervical Papanicolaou smear Furuncle Assessment and Plan Assessment and plan all Dx Assessment and Plan for all problems:: Pharmacokinetic dosing service Objective: Patient: Floor: Age: 33 yo Serum creatinine: 0.7 mg/dL Height: 64.2 Inches Weight (kg): 100 Assessment: IBW (kg): 55.16 Dosing wt(kg): 100 Estimated Creatinine clearance (ml/min): 100.5 CRCL method: Cockcroft and Gault using ibw(default). Drug selected: Vancomycin Loading dose (mg): 0 Vd (liters): 80.0 (factor used: 0.8 L/kg) Markel (hr-1): 0.088 Half life (hrs): 7.88 Recommended dose: 2000 mg Interval: 12 hrs Infusion time (hrs): 2.0 Predicted peak (mcg/mL): 35.2 Predicted trough (mcg/mL): 14.60 Total body weight is being used for vancomycin dosing. Recommendations: Give Vancomycin 2000 mg q 12 hrs with an expected Cpeak of 35.2 mcg/ml and an expected Ctrough of 14.60 mcg/ml ----Vanco only - ignore for aminoglycosides----- CLvanco= 7.04 L/hr AUC 0-24 /SHAYNE Data: SHAYNE 0.5 mcg/mL: AUC/SHAYNE: 1136.4 SHAYNE 1.0 mcg/mL: AUC/SHAYNE: 568.2 --------- SHAYNE 1.5 mcg/mL: AUC/SHAYNE: 378.8 SHAYNE 2.0 mcg/mL: AUC/SHAYNE: 284.1
[2024-01-06 11:27] LABS: Basophils # 0.1 K/mm3 (0-0.2); Basophils % 0.6 % (0.1-2.0); Eosinophils # 0.3 K/mm3 (0.0-0.4); Eosinophils % 1.8 % (0.1-12.0); Hematocrit 40.3 % (37.0-47.0); Hemoglobin 13.9 g/dL (12.2-16.2); Lymphocytes # 1.8 K/mm3 (0.7-4.5); Lymphocytes % 10.1 % (10-50); Mean Corpuscular HGB Conc 34.5 g/dL (31.8-35.4); Mean Corpuscular Hemoglobin 28.7 pg (27.0-31.2); Mean Corpuscular Volume 83.3 fl (81-99); Mean Platelet Volume 8.2 fl (7.4-10.4); Monocytes # 0.6 K/mm3 (0.1-1.0); Monocytes % 3.6 % (1.7-9.3); Neutrophils # 14.7 K/mm3 (1.8-7.8); Platelet Count 302 K/mm3 (142-424); Red Blood Count 4.84 M/mm3 (4.20-5.40); Red Cell Distribution Width 13.2 % (11.5-17.5); White Blood Count 17.5 K/mm3 (4.8-10.8)
[2024-01-06 11:31] LABS: Lactic Acid 0.8 mmol/L (0.7-2.1)
[2024-01-06 11:32] LABS: Alanine Aminotransferase 15 U/L (12-78); Albumin Level 4.2 g/dl (3.5-5.0); Albumin/Globulin Ratio 1.2 (1.1-1.8); Alkaline Phosphatase 74 U/L (38-126); Anion Gap 16.2 mEq/L (5-15); Aspartate Amino Transferase 23 U/L (14-36); Bilirubin,Total 0.7 mg/dl (0.2-1.3); Blood Urea Nitrogen 10 mg/dl (7-17); Calcium 9.2 mg/dl (8.4-10.2); Carbon Dioxide 20 mmol/L (22.0-30.0); Chloride 107 mmol/L (98-107); Creatinine Clearance Estimated 175 mL/min (50-200); Estimated Glomerular Filt Rate 97 ml/min (>60); GFR (African American) 117 ML/MIN (>60); Globulin 3.4 g/dL (1.3-3.2); Glucose 99 mg/dl (74-100); Potassium 4.2 mmoL/L (3.5-5.1); Sodium 139 mmol/L (136-145); Total Protein,Serum 7.6 g/dl (6.3-8.2)
[2024-01-06 11:36] LABS: C-Reactive Protein 108.3 mg/L (0-4)
[2024-01-06 11:40] LABS: MANUAL DIFFERENTIAL MANUAL DIFFERENTIAL (MANUAL DIFF)
[2024-01-06] MEDS: SODIUM CHLORIDE 0.9% 10ML SYR (RAD ONLY) 10 ML IV (12:26)
[2024-01-06] MEDS: IOPAMIDOL-370 (76%);100ML BOTTLE 75 ML IV (12:26)
[2024-01-06] MEDS: PIPERACILLIN/TAZO 4.5 GM in 0.9 % SODIUM CHLORIDE 100 ML IV ×2 (13:02→16:41)
[2024-01-06] MEDS: LACTATED RINGERS 1000ML 1,000 ML 500 ML IV (13:02)
[2024-01-06 13:26] LABS: Eosinophils % 1 % (0-3); Lymphocytes % 14 % (10-50); Monocytes % 2 % (2-9); Neutrophils % 83 % (42-76); Platelet Estimate Normal; RBC Morphology Normal; Total Cells Counted 100
[2024-01-06] MEDS: VANCOMYCIN HCL 2,000 MG in 0.9 % SODIUM CHLORIDE 250 ML 125 MG IV ×2 (13:50→22:02)
[2024-01-06 14:25] LABS: Erythrocyte Sedimentation Rate 18 mm/hr (0-20)
--- NOTE | 2024-01-06 15:14 | P.CONS_ITS ---
History of Present Illness *Admission Date: 01/06/24 *Reason for visit:: Abdominal pain, fever *History of present illness: Ms. Mccarthy is a 33-year-old female with recent LAVH performed 2 weeks ago. She presented to outpatient clinic today with 2 days of fever and lower abdominal discomfort. Has been having some pain that goes down her legs and up into her back. Fever of 101 yesterday. Denies significant cough, chest pain, shortness of breath. No nausea or vomiting. Has had some pressure in her pelvis as well with attempts to defecate. Mild discomfort when she urinates. No other focal symptoms that she complains of. Medicine was consulted to evaluate and assist with care of patient by gynecology. On arrival to the floor, patient is hemodynamically stable. On room air and afebrile. Has been doing fairly well since her surgery until 2 days ago. No known sick contacts. Sepsis workup initiated. [facility] Disclaimer: The information contained in this section may have been updated after the patient was seen, as this information can be updated by other users. 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 Normal hysteroscopy Upper respiratory infection, viral Otitis media Eczema of lower extremity Vaginitis Pelvic pain Encounter for gynecological examination (general) (routine) without abnormal findings Viral upper respiratory infection Upper respiratory tract infection Bronchitis Strep throat Sinusitis Insomnia Obesity (BMI 30-39.9) Abnormal cervical Papanicolaou smear Furuncle Surgical History H/O dilation and curettage H/O abdominal hysterectomy History of appendectomy History of cholecystectomy H/O tubal ligation Family History Other Diabetes Social History Smoking Status: Former smoker second hand exposure: No alcohol intake: never substance use type: denies use current occupational status: employed Travel in the last 8 weeks: None household members: significant other and children housing: house number of children: 2 current occupation: [employer] current occupational exposures/hazards: No caffeine: Yes Review of Systems Review of Systems Review of systems (narrative): 14 point review of systems performed, pertinent positives and negatives as per HPI Exam Data for Last 24 hours Vital signs and Labs for Last 24 Hours: O2 Del Method Room Air 01/06/24 14:31 Laboratory Results - last 24 hr 01/06/24 11:11: WBC 17.5 H, RBC 4.84, Hgb 13.9, Hct 40.3, MCV 83.3, MCH 28.7, MCHC 34.5, RDW 13.2, Plt Count 302, MPV 8.2, Neut % (Auto) 84.0 H, Lymph % (Auto) 10.1, [place] % (Auto) 3.6, Eos % (Auto) 1.8, Baso % (Auto) 0.6, Neut # (Auto) 14.7 H, Lymph # (Auto) 1.8, [place] # (Auto) 0.6, Eos # (Auto) 0.3, Baso # (Auto) 0.1, Total Counted 100, Neutrophils % (Manual) 83 H, Lymphocytes % (Manual) 14, Monocytes % (Manual) 2, Eosinophils % (Manual) 1, Platelet Estimate Normal, RBC Morphology Normal, ESR 18, Sodium 139, Potassium 4.2, Chloride 107, Carbon Dioxide 20 L, Anion Gap 16.2 H, BUN 10, Creatinine 0.70, Estimated Creat Clear 175, Estimated GFR 97, Est GFR ( Amer) 117, Glucose 99, Lactate 0.8, Calcium 9.2, Total Bilirubin 0.7, AST 23, ALT 15, Alkaline Phosphatase 74, C-Reactive Protein 108.3 H, Total Protein 7.6, Albumin 4.2, Globulin 3.4 H, Albumin/Globulin Ratio 1.2 I & O for Last 24 hours: Intake & Output 01/03/24 01/04/24 01/05/24 01/06/24 23:59 23:59 23:59 23:59 Output Total 0 / 0 Balance 0 / 0 Weight 95.906 kg Constitutional Constitutional: no acute distress, obese and cooperative *Routine HEENT Exam Head: Present normocephalic and atraumatic Eye: Present EOMI and PERRL ENT: Present mucous membranes moist *Routine Neck Exam Neck: Present supple *Routine Respiratory Exam Respiratory: Present normal respiratory effort, able to speak in complete sentences and symmetric chest movement; Absent accessory muscle use, rhonchi, stridor, wheezes or crackles *Routine Cardiovascular Exam Cardiovascular: Present RRR *Routine Abdominal Exam Abdominal: Present soft, normoactive bowel sounds and tenderness (Minimal in right hemiabdomen) Comments: Her incisions are clean and dry. *Routine Rectal Exam Patient deferred: visual exam *Routine Exam Patient deferred: external exam *Routine Extremities Exam Extremities: Present full ROM; Absent cyanosis, clubbing or edema *Routine Skin Exam Skin: Present intact; Absent cyanosis *Routine Neurological Exam Neurological: Present alert, oriented X3, CN II-XII intact and moving all extremities; Absent altered mental status Meds Home Medications and Allergies Home Medications ?Medication ?Instructions ?Recorded ?Confirmed ?Type fluticasone propionate 50 1 spray intranasal DAILY #16 grams 12/09/23 01/06/24 Rx mcg/actuation nasal spray,suspension hydrocortisone 1 % topical cream 1 applic topical TID PRN itching 12/30/23 01/06/24 Rx #28.35 grams New Prescriptions to Start Prescriptions: Allergies Allergy/AdvReac Type Severity Reaction Status Date / Time azithromycin (AZITHROMYCIN) Allergy Intermediate I-HIVES Verified 01/06/24 09:50 doxycycline Allergy Rash Verified 01/06/24 09:50 Results Labs 01/06/24 11:11 01/06/24 11:11 Labs: Abnormal lab results 01/06/24 Range/Units 11:11 WBC 17.5 H (4.8-10.8) K/mm3 Neut % (Auto) 84.0 H (37.0-80.0) % Neut # (Auto) 14.7 H (1.8-7.8) K/mm3 Neutrophils % (Manual) 83 H (42-76) % Carbon Dioxide 20 L (22.0-30.0) mmol/L Anion Gap 16.2 H (5-15) mEq/L C-Reactive Protein 108.3 H (0-4) mg/L Globulin 3.4 H (1.3-3.2) g/dL H & H 01/06/24 Range/Units 11:11 Hgb 13.9 (12.2-16.2) g/dL Hct 40.3 (37.0-47.0) % All other labs normal. Assessment and Plan *Assessment and plan (1) Postsurgical fever: Status: Acute Category: Medical Code(s): R50.82 - Postprocedural fever (2) Bipolar depression: Status: Chronic Category: Medical Code(s): F31.9 - Bipolar disorder, unspecified (3) Obesity: Status: Acute Category: Medical Code(s): E66.9 - Obesity, unspecified (4) Anxiety: Status: Acute Category: Medical Code(s): F41.9 - Anxiety disorder, unspecified (5) Pelvic pain: Status: Acute Category: Medical Code(s): R10.2 - Pelvic and perineal pain Plan Ms. Mccarthy is a 33-year-old female who presents with fever 2 weeks postop. Concern for possible sepsis or infection related to her hysterectomy. Initiated on sepsis workup including blood cultures, urine culture, broad-spectrum antibiotics and lab evaluation. Discussed case with gynecology, recommend admission for further evaluation given her fevers and concerning complaint for pelvic pain. Medicine agreed to evaluate and assist with care. Problems addressed as follows: SIRS Fever Pelvic pain - Initial workup concerning for SIRS with tachycardia, white count of 17 (neutrophil predominant). CT obtained, personal review shows no overt abscess or focal source of infection. Kidneys appear normal. Mild constipation and right hemicolon but otherwise unremarkable CT of abdomen. -Blood and urine cultures obtained, pending. -Initiate vancomycin and Zosyn 4.5 g every 6 hours. Monitor for toxicity. -Repeat CBC, CMP, magnesium ordered for the morning -Kidney function normal with BUN 10, creatinine 0.7 -Status post sepsis bolus with 1 L over 2 hours of LR -CRP elevated 108. ESR normal at 18 -Tylenol 650 mg as needed every 6 hours for fever pain -Further management pending culture results. -Comprehensive respiratory panel pending to evaluate for viral etiologies of fever and white count Constipation: Visualized on CT. Initiate docusate/senna twice daily Full code Holding anticoagulation Regular diet
[2024-01-06] MEDS: SENNOSIDES 8.6MG/DOCUSATE 50MG TABLET 1 TAB PO ×2 (15:31→21:04)
[2024-01-06] MEDS: diphenhydrAMINE 25MG CAPSULE 25 MG PO (15:31)
[2024-01-06 16:00] VITALS: BP 133/72; PULSE 115; RESP 15; TEMP 37.4; O2SAT 99
[2024-01-06 17:38] LABS: Adenovirus,PCR Not Detected (NotDetected); Bordetella Pertussis Not Detected (NotDetected); Chlamydophila Pneumoniae, PCR Not Detected (NotDetected); Coronavirus 19, PCR Not Detected (NotDetected); Coronavirus 229E Not Detected (NotDetected); Coronavirus NL63 Not Detected (NotDetected); Coronavirus OC43 Not Detected (NotDetected); Coronovirus HKU1,PCR Not Detected (NotDetected); Human Metapneumovirus Not Detected (NotDetected); Influenza A, PCR Not Detected (NotDetected); Influenza AH1, 2009 Not Detected (NotDetected); Influenza AH1, PCR Not Detected (NotDetected); Influenza AH3,PCR Not Detected (NotDetected); Influenza B, PCR Not Detected (NotDetected); Mycoplasma Pneumoniae, PCR Not Detected (NotDetected); Parainfluenza 1, PCR Not Detected (NotDetected); Parainfluenza 2, PCR Not Detected (NotDetected); Parainfluenza 3, PCR Not Detected (NotDetected); Parainfluenza 4, PCR Not Detected (NotDetected); Respiratory Syncytial Virus Not Detected (NotDetected); Rhinovirus/Enterovirus Not Detected (NotDetected)
--- NOTE | 2024-01-06 17:42 | PC.NURSE ---
A&OX4. TOLERATING RA WELL. UP INDEPENDENTLY IN ROOM, HAS FAMILY AT BEDSIDE. TOLERATING FLUIDS AND ANTIBIOTICS WELL. 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 MD AT BEDSIDE. INSTRUCTED TO DECREASE RATE OF VANCOMYCIN AND RUN WITH FLUIDS CONCURRENTLY. BENADRYL ALSO GIVEN. SYMPTOMS ARE GONE AT THIS TIME. PATIENT STATES SHE HAS SOME PAIN IN HER ABD, MOSTLY RLQ. NO OTHER NEEDS OR C/O NOTED AT THIS TIME, VSS.
[2024-01-06] MEDS: ACETAMINOPHEN 325MG TAB 650 MG PO (18:46)
[2024-01-06 20:00] VITALS: BP 133/69; PULSE 118; RESP 18; TEMP 38; O2SAT 98
[2024-01-06] MEDS: LACTATED RINGERS 1000ML 1,000 ML 50 ML IV (22:02)
[2024-01-07] VITALS: BP 114/61; PULSE 101; RESP 16; TEMP 36.9; O2SAT 100
[2024-01-07] MEDS: PIPERACILLIN/TAZO 4.5 GM in 0.9 % SODIUM CHLORIDE 100 ML IV ×4 (02:00→19:58)
[2024-01-07 04:00] VITALS: BP 121/64; PULSE 95; RESP 16; TEMP 37.1; O2SAT 100; BMI 36.8
--- NOTE | 2024-01-07 06:06 | PC.NURSE ---
01/07/24 0600: Pt is alert and orientated x 4. Pt. on room air. Pt. up independently in the room. Pt. getting antibiotics and fluids overnight. Pt's did not have any reactions to the vancomycin infusion. rate was slowed and it was run concurrently with IVF. Pt. had some mild c/o abdominal pain but did not need pain medications. Pt. was able to sleep some overnight. No new c/o's. Personal items and call burton in reach.
[2024-01-07 06:28] LABS: Basophils # 0.1 K/mm3 (0-0.2); Basophils % 0.5 % (0.1-2.0); Eosinophils # 0.6 K/mm3 (0.0-0.4); Eosinophils % 4.3 % (0.1-12.0); Hematocrit 35.3 % (37.0-47.0); Lymphocytes # 1.9 K/mm3 (0.7-4.5); Lymphocytes % 13.6 % (10-50); Mean Corpuscular HGB Conc 34.7 g/dL (31.8-35.4); Mean Corpuscular Hemoglobin 28.8 pg (27.0-31.2); Mean Corpuscular Volume 82.9 fl (81-99); Mean Platelet Volume 8.1 fl (7.4-10.4); Monocytes # 0.7 K/mm3 (0.1-1.0); Monocytes % 4.9 % (1.7-9.3); Neutrophils # 10.9 K/mm3 (1.8-7.8); Neutrophils % 76.7 % (37.0-80.0); Platelet Count 281 K/mm3 (142-424); Red Blood Count 4.26 M/mm3 (4.20-5.40); Red Cell Distribution Width 13.3 % (11.5-17.5); White Blood Count 14.2 K/mm3 (4.8-10.8)
[2024-01-07 06:44] LABS: Alanine Aminotransferase 13 U/L (12-78); Albumin Level 3.5 g/dl (3.5-5.0); Albumin/Globulin Ratio 1.2 (1.1-1.8); Alkaline Phosphatase 62 U/L (38-126); Anion Gap 10.8 mEq/L (5-15); Aspartate Amino Transferase 18 U/L (14-36); Bilirubin,Total 0.9 mg/dl (0.2-1.3); Blood Urea Nitrogen 9 mg/dl (7-17); Calcium 8.8 mg/dl (8.4-10.2); Carbon Dioxide 23 mmol/L (22.0-30.0); Chloride 107 mmol/L (98-107); Creatinine Clearance Estimated 156 mL/min (50-200); Estimated Glomerular Filt Rate 83 ml/min (>60); GFR (African American) 101 ML/MIN (>60); Globulin 2.9 g/dL (1.3-3.2); Glucose 92 mg/dl (74-100); Potassium 3.8 mmoL/L (3.5-5.1); Sodium 137 mmol/L (136-145); Total Protein,Serum 6.4 g/dl (6.3-8.2)
[2024-01-07 06:49] LABS: C-Reactive Protein 129.2 mg/L (0-4)
[2024-01-07 07:07] LABS: Hemoglobin 12.2 g/dL (12.2-16.2)
--- NOTE | 2024-01-07 07:55 | HMH.PHAINT1 ---
Pharmacy Intervention Comments: HOME MEDICATIONS VERIFIED VIA OUTPATIENT PHARMACY
[2024-01-07 08:00] VITALS: BP 121/70; PULSE 93; RESP 16; TEMP 36.9; O2SAT 99
[2024-01-07] MEDS: SENNOSIDES 8.6MG/DOCUSATE 50MG TABLET 1 TAB PO ×2 (08:22→20:48)
[2024-01-07] MEDS: VANCOMYCIN HCL 2,000 MG in 0.9 % SODIUM CHLORIDE 250 ML 125 MG IV ×2 (09:48→20:48)
[2024-01-07] MEDS: diphenhydrAMINE 25MG CAPSULE 25 MG PO ×2 (09:48→20:50)
--- NOTE | 2024-01-07 11:16 | EXP.HP ---
History of Present Illness *Admission Date: 01/06/24 *Reason for visit:: Lower abdominal pain, postop fever *History of present illness: Ms. Mccarthy is a 33-year-old female with recent LAVH performed 2 weeks ago. She presented to outpatient clinic today with 2 days of fever and lower abdominal discomfort. Has been having some pain that goes down her legs and up into her back. Fever of 101 yesterday. Denies significant cough, chest pain, shortness of breath. No nausea or vomiting. Has had some pressure in her pelvis as well with attempts to defecate. Mild discomfort when she urinates. No other focal symptoms that she complains of. Medicine was consulted to evaluate and assist with care of patient by gynecology. On arrival to the floor, patient is hemodynamically stable. On room air and afebrile. Has been doing fairly well since her surgery until 2 days ago. No known sick contacts. Sepsis workup initiated. [facility] Disclaimer: The information contained in this section may have been updated after the patient was seen, as this information can be updated by other users. 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 Normal hysteroscopy Upper respiratory infection, viral Otitis media Eczema of lower extremity Vaginitis Pelvic pain Encounter for gynecological examination (general) (routine) without abnormal findings Viral upper respiratory infection Upper respiratory tract infection Bronchitis Strep throat Sinusitis Insomnia Obesity (BMI 30-39.9) Abnormal cervical Papanicolaou smear Furuncle Surgical History H/O dilation and curettage H/O abdominal hysterectomy History of appendectomy History of cholecystectomy H/O tubal ligation Family History Diabetes Social History Smoking Status: Former smoker second hand exposure: No alcohol intake: never substance use type: denies use current occupational status: employed household members: significant other and children housing: house number of children: 2 current occupation: [employer] current occupational exposures/hazards: No caffeine: Yes Other 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 Have you received the Flu Vaccine for this season: No Have you received the Pneumonia Vaccine: No Review of Systems Review of Systems Review of systems:: pertinent systems reviewed and negative unless documented below Meds Home Medications and Allergies Home Medications ?Medication ?Instructions ?Recorded ?Confirmed ?Type fluticasone propionate 50 1 spray intranasal DAILY #16 grams 12/09/23 01/06/24 Rx mcg/actuation nasal spray,suspension hydrocortisone 1 % topical cream 1 applic topical TIDP PRN Itching 01/07/24 01/07/24 History New Prescriptions to Start Prescriptions: Allergies Allergy/AdvReac Type Severity Reaction Status Date / Time azithromycin (AZITHROMYCIN) Allergy Intermediate I-HIVES Verified 01/06/24 09:50 doxycycline Allergy Rash Verified 01/06/24 09:50 Exam Data for Last 24 hours Vital signs and Labs for Last 24 Hours: Temp Pulse Resp BP Pulse Ox O2 Del Method 98.5 F 93 H 16 121/70 99 Room Air 01/07/24 08:00 01/07/24 08:00 01/07/24 08:00 01/07/24 08:00 01/07/24 08:00 01/07/24 08:29 Laboratory Results - last 24 hr 01/06/24 11:11: WBC 17.5 H, RBC 4.84, Hgb 13.9, Hct 40.3, MCV 83.3, MCH 28.7, MCHC 34.5, RDW 13.2, Plt Count 302, MPV 8.2, Neut % (Auto) 84.0 H, Lymph % (Auto) 10.1, [place] % (Auto) 3.6, Eos % (Auto) 1.8, Baso % (Auto) 0.6, Neut # (Auto) 14.7 H, Lymph # (Auto) 1.8, [place] # (Auto) 0.6, Eos # (Auto) 0.3, Baso # (Auto) 0.1, Total Counted 100, Neutrophils % (Manual) 83 H, Lymphocytes % (Manual) 14, Monocytes % (Manual) 2, Eosinophils % (Manual) 1, Platelet Estimate Normal, RBC Morphology Normal, ESR 18, Sodium 139, Potassium 4.2, Chloride 107, Carbon Dioxide 20 L, Anion Gap 16.2 H, BUN 10, Creatinine 0.70, Estimated Creat Clear 175, Estimated GFR 97, Est GFR ( Amer) 117, Glucose 99, Lactate 0.8, Calcium 9.2, Total Bilirubin 0.7, AST 23, ALT 15, Alkaline Phosphatase 74, C-Reactive Protein 108.3 H, Total Protein 7.6, Albumin 4.2, Globulin 3.4 H, Albumin/Globulin Ratio 1.2 01/06/24 17:30: Chlamy pneumoniae PCR Not detected, Adenovirus (PCR) Not detected, B. pertussis DNA (PCR) Not detected, Coronavirus OC43 (PCR) Not detected, Coronavirus HKU1 (PCR) Not detected, Coronavirus 229E (PCR) Not detected, SARS-CoV-2 (PCR) Not detected, Coronavirus NL63 (PCR) Not detected, Human Metapneumovir PCR Not detected, Influenza A (H1) PCR Not detected, Influ A (H1N1/09) PCR Not detected, Influenza A (H3) PCR Not detected, Influenza Type A (PCR) Not detected, Influenza Type B (PCR) Not detected, M. pneumoniae (PCR) Not detected, Parainfluenza 1 (PCR) Not detected, Parainfluenza 2 (PCR) Not detected, Parainfluenza 3 (PCR) Not detected, Parainfluenza 4 (PCR) Not detected, RSV (PCR) Not detected, Entero/Rhino (PCR) Not detected 01/07/24 05:47: WBC 14.2 H, RBC 4.26, Hgb 12.2 D, Hct 35.3 L, MCV 82.9, MCH 28.8, MCHC 34.7, RDW 13.3, Plt Count 281, MPV 8.1, Neut % (Auto) 76.7, Lymph % (Auto) 13.6, [place]ancock % (Auto) 4.9, Eos % (Auto) 4.3, Baso % (Auto) 0.5, Neut # (Auto) 10.9 H, Lymph # (Auto) 1.9, [place]ancock # (Auto) 0.7, Eos # (Auto) 0.6 H, Baso # (Auto) 0.1, Sodium 137, Potassium 3.8, Chloride 107, Carbon Dioxide 23, Anion Gap 10.8, BUN 9, Creatinine 0.80, Estimated Creat Clear 156, Estimated GFR 83, Est GFR ( Amer) 101, Glucose 92, Calcium 8.8, Magnesium 2.0, Total Bilirubin 0.9, AST 18, ALT 13, Alkaline Phosphatase 62, C-Reactive Protein 129.2 H, Total Protein 6.4, Albumin 3.5 D, Globulin 2.9, Albumin/Globulin Ratio 1.2 I & O for Last 24 hours: Intake & Output 01/04/24 01/05/24 01/06/24 01/07/24 11:59 11:59 11:59 11:59 Intake Total 2049 Output Total 0 / 0 Balance 2049 Weight 211 lb 7 oz 215 lb 6.4 oz Constitutional Constitutional: no acute distress *Routine HEENT Exam Head: Present normocephalic Eye: Present EOMI and PERRL ENT: Present mucous membranes moist *Routine Neck Exam Neck: Present supple; Absent lymphadenopathy *Routine Respiratory Exam Respiratory: Present CTA bilaterally *Routine Cardiovascular Exam Cardiovascular: Present RRR *Routine Abdominal Exam Abdominal: Present soft, normoactive bowel sounds and tenderness Comments: Her lower abdomen was tender but there were no peritoneal signs, no guarding and no distention. Bowel sounds were normal. *Routine Rectal Exam Rectal:: deferred *Routine Genitalia Exam Genitalia:: deferred *Routine Extremities Exam Extremities: Absent cyanosis, clubbing or edema *Routine Skin Exam Skin: Present warm; Absent rash *Routine Neurological Exam Neurological: Present alert and oriented X3 Assessment and Plan *Assessment and plan (1) Postsurgical fever: Status: Acute Category: Medical Code(s): R50.82 - Postprocedural fever (2) History of hysterectomy: Status: Acute Category: Surgical Code(s): Z90.710 - Acquired absence of both cervix and uterus (3) Obesity: Status: Acute Qualifiers: Obesity classification: adult class 1 (BMI 30 - 34.9) Serious obesity comorbidity presence: without serious comorbidity Body mass index: BMI 34.0-34.9 Obesity type: due to excess calories Qualified Code(s): E66.811 - Obesity, class 1; E66.09 - Other obesity due to excess calories; Z68.34 - Body mass index [BMI] 34.0-34.9, adult Category: Medical Code(s): E66.9 - Obesity, unspecified (4) Anxiety: Status: Acute Category: Medical Code(s): F41.9 - Anxiety disorder, unspecified Plan She is admitted for workup of her postop fever. We will arrange CT scan, CBC and blood work. We will start a sepsis workup. We will start antibiotics. I have consulted our hospitalist Dr. Simmons.
--- NOTE | 2024-01-07 11:24 | P.PN_ITS ---
Subjective *Date: 01/07/24 *Time: 11:24 Interval history: She is doing better this morning. Her pain is improved. She looks well. Her white count has come down from 17-14. She did have a fever last night up to 102 degrees. She is afebrile today. It still not clear why she has a postoperative fever. Medical Exam Vital signs and Labs for Last 24 Hours: Vital Signs Temp Pulse Resp BP Pulse Ox O2 Del Method 01/07/24 08:29 Room Air 01/07/24 08:00 Room Air 01/07/24 08:00 98.5 F 93 H 16 121/70 99 Room Air 01/07/24 06:55 Room Air 01/07/24 04:32 Room Air 01/07/24 04:00 98.8 F 95 H 16 121/64 100 Room Air 01/07/24 03:00 Room Air 01/07/24 01:00 Room Air 01/07/24 00:00 98.5 F 101 H 16 114/61 100 Room Air 01/06/24 23:00 Room Air 01/06/24 21:00 Room Air 01/06/24 20:00 98 Room Air 01/06/24 20:00 100.4 F H 118 H 18 133/69 98 Room Air 01/06/24 18:55 Room Air 01/06/24 17:00 Room Air 01/06/24 16:00 99.4 F 115 H 15 133/72 99 Room Air 01/06/24 14:31 Room Air 01/06/24 13:00 Room Air 01/06/24 12:00 Room Air 01/06/24 11:34 Room Air Intake and Output 01/06/24 01/07/24 01/07/24 19:59 03:59 11:59 Intake Total 170 / 0 350 / 2050 Output Total 0 / 0 0 / 0 0 / 0 Balance 170 / 0 0 / 0 350 / 2050 Intake: Intake, Oral Amount 250 / 250 Intake, Total IV Amount 1450 / 1800 350 / 1800 Lactated Ringers 1000ML 1,000 1000 / 1000 ml @ 500 mls/hr IV .Q2H [facility] Rx# :[id number] Piperacillin/Tazo 4.5 gm In 0.9 200 / 300 100 / 300 % Sodium Chloride 100 ml @ 200 mls/hr IV Q6H [facility] Rx#:[id number] Vancomycin HCl 2,000 mg In 0.9 250 / 500 250 / 500 % Sodium Chloride 250 ml @ 125 mls/hr IV Q12 [facility] Rx#:[id number] Output: Output, Urine Amount 0 / 0 0 / 0 0 / 0 Other: Number of Unmeasured Voids 3 1 1 Number of Bowel Movements 1 Weight 215 lb 6.4 oz Patient Weight 01/07/24 11:59 Weight 215 lb 6.4 oz Laboratory Results - last 24 hr 01/06/24 11:11: WBC 17.5 H, RBC 4.84, Hgb 13.9, Hct 40.3, MCV 83.3, MCH 28.7, MCHC 34.5, RDW 13.2, Plt Count 302, MPV 8.2, Neut % (Auto) 84.0 H, Lymph % (Auto) 10.1, Sullivan % (Auto) 3.6, Eos % (Auto) 1.8, Baso % (Auto) 0.6, Neut # (Auto) 14.7 H, Lymph # (Auto) 1.8, Sullivan # (Auto) 0.6, Eos # (Auto) 0.3, Baso # (Auto) 0.1, Total Counted 100, Neutrophils % (Manual) 83 H, Lymphocytes % (Manual) 14, Monocytes % (Manual) 2, Eosinophils % (Manual) 1, Platelet Estimate Normal, RBC Morphology Normal, ESR 18, Sodium 139, Potassium 4.2, Chloride 107, Carbon Dioxide 20 L, Anion Gap 16.2 H, BUN 10, Creatinine 0.70, Estimated Creat Clear 175, Estimated GFR 97, Est GFR ( Amer) 117, Glucose 99, Lactate 0.8, Calcium 9.2, Total Bilirubin 0.7, AST 23, ALT 15, Alkaline Phosphatase 74, C-Reactive Protein 108.3 H, Total Protein 7.6, Albumin 4.2, Globulin 3.4 H, Albumin/Globulin Ratio 1.2 01/06/24 17:30: Chlamy pneumoniae PCR Not detected, Adenovirus (PCR) Not detected, B. pertussis DNA (PCR) Not detected, Coronavirus OC43 (PCR) Not detected, Coronavirus HKU1 (PCR) Not detected, Coronavirus 229E (PCR) Not detected, SARS-CoV-2 (PCR) Not detected, Coronavirus NL63 (PCR) Not detected, Human Metapneumovir PCR Not detected, Influenza A (H1) PCR Not detected, Influ A (H1N1/09) PCR Not detected, Influenza A (H3) PCR Not detected, Influenza Type A (PCR) Not detected, Influenza Type B (PCR) Not detected, M. pneumoniae (PCR) Not detected, Parainfluenza 1 (PCR) Not detected, Parainfluenza 2 (PCR) Not detected, Parainfluenza 3 (PCR) Not detected, Parainfluenza 4 (PCR) Not detected, RSV (PCR) Not detected, Entero/Rhino (PCR) Not detected 01/07/24 05:47: WBC 14.2 H, RBC 4.26, Hgb 12.2 D, Hct 35.3 L, MCV 82.9, MCH 28.8, MCHC 34.7, RDW 13.3, Plt Count 281, MPV 8.1, Neut % (Auto) 76.7, Lymph % (Auto) 13.6, Sullivan % (Auto) 4.9, Eos % (Auto) 4.3, Baso % (Auto) 0.5, Neut # (Auto) 10.9 H, Lymph # (Auto) 1.9, Sullivan # (Auto) 0.7, Eos # (Auto) 0.6 H, Baso # (Auto) 0.1, Sodium 137, Potassium 3.8, Chloride 107, Carbon Dioxide 23, Anion Gap 10.8, BUN 9, Creatinine 0.80, Estimated Creat Clear 156, Estimated GFR 83, Est GFR ( Amer) 101, Glucose 92, Calcium 8.8, Magnesium 2.0, Total Bilirubin 0.9, AST 18, ALT 13, Alkaline Phosphatase 62, C-Reactive Protein 129.2 H, Total Protein 6.4, Albumin 3.5 D, Globulin 2.9, Albumin/Globulin Ratio 1.2 I & O for Labs for Last 24 Hours: Intake & Output 01/04/24 01/05/24 01/06/24 01/07/24 11:59 11:59 11:59 11:59 Intake Total 2049 Output Total 0 / 0 Balance 2049 Weight 211 lb 7 oz 215 lb 6.4 oz Microbiology Reports for the Last 24 Hours: Microbiology 01/06/24 11:04 Blood Blood Culture - Preliminary NO GROWTH AFTER 24 HOURS 01/06/24 11:11 Blood Blood Culture - Preliminary NO GROWTH AFTER 24 HOURS Head: Present atraumatic and normocephalic Neck: Present normal inspection Respiratory: Present normal respiratory effort; Absent accessory muscle use GI: Present soft and normal bowel sounds; Absent distention, tenderness, guarding, rebound or rigidity Assessment and Plan *Assessment and plan (1) History of hysterectomy: Status: Acute Category: Surgical Code(s): Z90.710 - Acquired absence of both cervix and uterus (2) Postsurgical fever: Status: Acute Category: Medical Code(s): R50.82 - Postprocedural fever (3) Bipolar depression: Status: Chronic Category: Medical Code(s): F31.9 - Bipolar disorder, unspecified (4) Obesity: Status: Acute Qualifiers: Obesity type: due to excess calories Obesity classification: adult class 1 (BMI 30 - 34.9) Serious obesity comorbidity presence: without serious comorbidity Body mass index: BMI 34.0-34.9 Qualified Code(s): E66.811 - Obesity, class 1; E66.09 - Other obesity due to excess calories; Z68.34 - Body mass index [BMI] 34.0-34.9, adult Category: Medical Code(s): E66.9 - Obesity, unspecified (5) Anxiety: Status: Acute Category: Medical Code(s): F41.9 - Anxiety disorder, unspecified Plan She had a CT scan that was normal yesterday. She has had blood work again today and her white count has gone down from 17-14. She did have a fever last night that spiked to 102 degrees. She is afebrile today. She is feeling better today. At this point in time it is unclear why she has a postoperative fever. All of her respiratory panel was negative as well. We will continue with her IV antibiotics for now since she seems to be getting better. If she is doing well tomorrow we will consider sending her home with oral antibiotics. We plan to review the CT scan with the radiologist to rule out septic pelvic thrombophlebitis.
--- NOTE | 2024-01-07 11:34 | EXP.MED.FU ---
Subjective *Date: 01/07/24 *Time: 12:09 Interval history: Patient feeling better this morning. Had a fever yesterday afternoon/early evening. Documented to 100.4, patient states it peaked at 102. Responded to Tylenol. No fever since. Denies any cough, chest pain, shortness of breath, nausea or vomiting. Had a bowel movement this morning. Tolerating p.o. intake. Denies any dysuria. Belly feeling somewhat better. No peritoneal signs on exam Exam Data for Last 24 hours Vital signs and Labs for Last 24 Hours: Temp Pulse Resp BP Pulse Ox O2 Del Method 98.5 F 93 H 16 121/70 99 Room Air 01/07/24 08:00 01/07/24 08:00 01/07/24 08:00 01/07/24 08:00 01/07/24 08:00 01/07/24 08:29 Laboratory Results - last 24 hr 01/06/24 11:11: WBC 17.5 H, RBC 4.84, Hgb 13.9, Hct 40.3, MCV 83.3, MCH 28.7, MCHC 34.5, RDW 13.2, Plt Count 302, MPV 8.2, Neut % (Auto) 84.0 H, Lymph % (Auto) 10.1, [place] % (Auto) 3.6, Eos % (Auto) 1.8, Baso % (Auto) 0.6, Neut # (Auto) 14.7 H, Lymph # (Auto) 1.8, [place] # (Auto) 0.6, Eos # (Auto) 0.3, Baso # (Auto) 0.1, Total Counted 100, Neutrophils % (Manual) 83 H, Lymphocytes % (Manual) 14, Monocytes % (Manual) 2, Eosinophils % (Manual) 1, Platelet Estimate Normal, RBC Morphology Normal, ESR 18, Lactate 0.8, C-Reactive Protein 108.3 H 01/06/24 17:30: Chlamy pneumoniae PCR Not detected, Adenovirus (PCR) Not detected, B. pertussis DNA (PCR) Not detected, Coronavirus OC43 (PCR) Not detected, Coronavirus HKU1 (PCR) Not detected, Coronavirus 229E (PCR) Not detected, SARS-CoV-2 (PCR) Not detected, Coronavirus NL63 (PCR) Not detected, Human Metapneumovir PCR Not detected, Influenza A (H1) PCR Not detected, Influ A (H1N1/09) PCR Not detected, Influenza A (H3) PCR Not detected, Influenza Type A (PCR) Not detected, Influenza Type B (PCR) Not detected, M. pneumoniae (PCR) Not detected, Parainfluenza 1 (PCR) Not detected, Parainfluenza 2 (PCR) Not detected, Parainfluenza 3 (PCR) Not detected, Parainfluenza 4 (PCR) Not detected, RSV (PCR) Not detected, Entero/Rhino (PCR) Not detected 01/07/24 05:47: WBC 14.2 H, RBC 4.26, Hgb 12.2 D, Hct 35.3 L, MCV 82.9, MCH 28.8, MCHC 34.7, RDW 13.3, Plt Count 281, MPV 8.1, Neut % (Auto) 76.7, Lymph % (Auto) 13.6, [place] % (Auto) 4.9, Eos % (Auto) 4.3, Baso % (Auto) 0.5, Neut # (Auto) 10.9 H, Lymph # (Auto) 1.9, [place] # (Auto) 0.7, Eos # (Auto) 0.6 H, Baso # (Auto) 0.1, Sodium 137, Potassium 3.8, Chloride 107, Carbon Dioxide 23, Anion Gap 10.8, BUN 9, Creatinine 0.80, Estimated Creat Clear 156, Estimated GFR 83, Est GFR ( Amer) 101, Glucose 92, Calcium 8.8, Magnesium 2.0, Total Bilirubin 0.9, AST 18, ALT 13, Alkaline Phosphatase 62, C-Reactive Protein 129.2 H, Total Protein 6.4, Albumin 3.5 D, Globulin 2.9, Albumin/Globulin Ratio 1.2 I & O for Last 24 hours: Intake & Output 01/04/24 01/05/24 01/06/24 01/07/24 23:59 23:59 23:59 23:59 Intake Total 1700 / 1700 350 / 350 Output Total 0 / 0 0 / 0 Balance 1700 / 1700 350 / 350 Weight 95.906 kg 97.704 kg Microbiology Reports for the Last 24 Hours: Microbiology 01/06/24 11:04 Blood Blood Culture - Preliminary NO GROWTH AFTER 24 HOURS 01/06/24 11:11 Blood Blood Culture - Preliminary NO GROWTH AFTER 24 HOURS Constitutional Constitutional: no acute distress, obese and cooperative *Routine HEENT Exam Head: Present normocephalic Eye: Present EOMI and PERRL ENT: Present mucous membranes moist *Routine Neck Exam Neck: Present supple; Absent lymphadenopathy *Routine Respiratory Exam Respiratory: Present CTA bilaterally; Absent respiratory distress, rhonchi, wheezes or crackles *Routine Cardiovascular Exam Cardiovascular: Present RRR *Routine Abdominal Exam Abdominal: Present soft and normoactive bowel sounds; Absent tenderness, distended, rebound or guarding *Routine Extremities Exam Extremities: Absent cyanosis, clubbing or edema *Routine Skin Exam Skin: Present warm; Absent rash *Routine Neurological Exam Neurological: Present alert, oriented X3 and moving all extremities; Absent altered mental status Assessment and Plan *Assessment and plan (1) Postsurgical fever: Status: Acute Category: Medical Code(s): R50.82 - Postprocedural fever (2) History of hysterectomy: Status: Acute Category: Surgical Code(s): Z90.710 - Acquired absence of both cervix and uterus (3) Bipolar depression: Status: Chronic Category: Medical Code(s): F31.9 - Bipolar disorder, unspecified (4) Obesity: Status: Acute Qualifiers: Body mass index: BMI 34.0-34.9 Obesity classification: adult class 1 (BMI 30 - 34.9) Obesity type: due to excess calories Serious obesity comorbidity presence: without serious comorbidity Qualified Code(s): E66.811 - Obesity, class 1; E66.09 - Other obesity due to excess calories; Z68.34 - Body mass index [BMI] 34.0-34.9, adult Category: Medical Code(s): E66.9 - Obesity, unspecified (5) Anxiety: Status: Acute Category: Medical Code(s): F41.9 - Anxiety disorder, unspecified (6) Pelvic pain: Status: Acute Category: Medical Code(s): R10.2 - Pelvic and perineal pain Plan Ms. Mccarthy is a 33-year-old female who presents with fever 2 weeks postop. Concern for possible sepsis or infection related to her hysterectomy. Initiated on sepsis workup including blood cultures, urine culture, broad-spectrum antibiotics and lab evaluation. Discussed case with gynecology, recommend continue to monitor until patient fever free for 24 hours. Will continue IV antibiotics. Problems addressed as follows: SIRS Fever Pelvic pain -White count with slight improvement to 14 this morning. CRP remains elevated at 129, slight bump from yesterday. -Continue vancomycin and Zosyn 4.5 g every 6 hours IV. Monitoring for toxicity. -Kidney function remains normal with BUN 9, creatinine 0.8. - Blood and urine cultures obtained, pending. -Repeat CBC, CMP, magnesium ordered for the morning -Tylenol 650 mg as needed every 6 hours for fever pain -Further management pending culture results. -Comprehensive respiratory panel negative. Constipation: Bowel movement this morning. Continue bowel regimen as needed, docusate/senna twice daily Full code Holding anticoagulation Regular diet
--- NOTE | 2024-01-07 14:50 | PC.NURSE ---
Aox 4, up ad yue, 22g L AC LR @ 50 ml/hr, on iv abx, call light in reach.
[2024-01-07 16:00] VITALS: BP 127/83; PULSE 88; RESP 19; TEMP 36.8; O2SAT 99
--- NOTE | 2024-01-07 18:39 | PC.NURSE ---
Pt. wants a shower now before getting her 18:45 and 19:00 abx.
[2024-01-07 20:00] VITALS: BP 147/91; PULSE 86; RESP 18; TEMP 36.9; O2SAT 100
[2024-01-07] MEDS: PHA TO NURSING INSTRUCTION 1 EACH NOTAPPLIC (20:01)
[2024-01-07 21:28] LABS: Vancomycin,Trough 12.6 ug/mL (5.0-10.0)
[2024-01-08] VITALS: BP 113/59; PULSE 80; RESP 16; TEMP 36.6; O2SAT 100
[2024-01-08] MEDS: PIPERACILLIN/TAZO 4.5 GM in 0.9 % SODIUM CHLORIDE 100 ML IV ×2 (01:02→08:15)
[2024-01-08 01:37] LABS: Vancomycin,Peak 29.3 ug/ml (11-39)
[2024-01-08 04:00] VITALS: BP 122/66; PULSE 90; RESP 16; TEMP 36.5; O2SAT 99; BMI 36.5
[2024-01-08 06:51] LABS: Basophils # 0.1 K/mm3 (0-0.2); Basophils % 0.7 % (0.1-2.0); Eosinophils # 0.8 K/mm3 (0.0-0.4); Eosinophils % 8.1 % (0.1-12.0); Hematocrit 35.8 % (37.0-47.0); Hemoglobin 12.3 g/dL (12.2-16.2); Lymphocytes # 2.8 K/mm3 (0.7-4.5); Lymphocytes % 29.7 % (10-50); Mean Corpuscular HGB Conc 34.2 g/dL (31.8-35.4); Mean Corpuscular Hemoglobin 28.6 pg (27.0-31.2); Mean Corpuscular Volume 83.5 fl (81-99); Mean Platelet Volume 8.5 fl (7.4-10.4); Monocytes # 0.4 K/mm3 (0.1-1.0); Monocytes % 4.7 % (1.7-9.3); Neutrophils # 5.4 K/mm3 (1.8-7.8); Neutrophils % 56.8 % (37.0-80.0); Platelet Count 328 K/mm3 (142-424); Red Blood Count 4.29 M/mm3 (4.20-5.40); Red Cell Distribution Width 13.1 % (11.5-17.5); White Blood Count 9.5 K/mm3 (4.8-10.8)
[2024-01-08 07:04] LABS: Alanine Aminotransferase 13 U/L (12-78); Albumin Level 3.5 g/dl (3.5-5.0); Albumin/Globulin Ratio 1.1 (1.1-1.8); Alkaline Phosphatase 58 U/L (38-126); Anion Gap 10.8 mEq/L (5-15); Aspartate Amino Transferase 23 U/L (14-36); Bilirubin,Total 0.5 mg/dl (0.2-1.3); Blood Urea Nitrogen 9 mg/dl (7-17); Carbon Dioxide 23 mmol/L (22.0-30.0); Chloride 109 mmol/L (98-107); Creatinine Clearance Estimated 137 mL/min (50-200); Estimated Glomerular Filt Rate 73 ml/min (>60); GFR (African American) 88 ML/MIN (>60); Globulin 3.1 g/dL (1.3-3.2); Glucose 96 mg/dl (74-100); Potassium 3.8 mmoL/L (3.5-5.1); Sodium 139 mmol/L (136-145); Total Protein,Serum 6.6 g/dl (6.3-8.2)
[2024-01-08 07:09] LABS: C-Reactive Protein 88.5 mg/L (0-4)
[2024-01-08 08:00] VITALS: BP 124/72; PULSE 84; RESP 14; TEMP 36.7; O2SAT 99
--- NOTE | 2024-01-08 08:03 | P.DS_ITS ---
General Admission date:: 01/06/24 Discharge date: 01/08/24 HPI HPI HPI: Ms. Mccarthy is a 33-year-old female with recent LAVH performed 2 weeks ago. She presented to outpatient clinic today with 2 days of fever and lower abdominal discomfort. Has been having some pain that goes down her legs and up into her back. Fever of 101 yesterday. Denies significant cough, chest pain, shortness of breath. No nausea or vomiting. Has had some pressure in her pelvis as well with attempts to defecate. Mild discomfort when she urinates. No other focal symptoms that she complains of. Medicine was consulted to ev aluate and assist with care of patient by gynecology. On arrival to the floor, patient is hemodynamically stable. On room air and afebrile. Has been doing fairly well since her surgery until 2 days ago. No known sick contacts. Sepsis workup initiated. Hospital Course Hospital Course Hospital Course: Ms. Mccarthy is a 33-year-old female who presents with fever 2 weeks postop. Concern for possible sepsis or infection related to her hysterectomy. Initiated on sepsis workup including blood cultures, urine culture, broad-spectrum antibiotics and lab evaluation. Discussed case with gynecology, unclear source of infection however urine does appear abnormal. Was discharged home on empiric oral antibiotics. Urine returned positive day after discharge. Patient was transitioned to levofloxacin to complete antibiotic course with 5 additional days of Levaquin for presumed E. coli UTI. Fever free for over 24 hours. Hemodynamically stable. Problems addressed as follows: SIRS E. coli UTI Fever Pelvic pain -White count elevated on admission at 16. CRP 800. CRP increased but white count gradually improved. On day of discharge, white count normal at 9.5, CRP trended down to 88. Was initially on vancomycin and Zosyn due to unknown source of infection. Kidney function remained normal. Blood cultures remain negative. Urine culture returned after discharge positive for E. coli. Patient initially on Augmentin at discharge, given sensitivity profile, was transitioned to Leva geovanny to complete 5 more days of therapy. Overall doing well. Recommend follow- up with gynecology in the next 2 weeks for reevaluation. Constipation: Bowel movement during admission. Continue regimen as needed with docusate/senna daily Exam Data for Last 24 hours Vital signs and Labs for Last 24 Hours: Temp Pulse Resp BP Pulse Ox O2 Del Method 97.7 F 90 16 122/66 99 Room Air 01/08/24 04:00 01/08/24 04:00 01/08/24 04:00 01/08/24 04:00 01/08/24 04:00 01/08/24 06:43 Laboratory Results - last 24 hr 01/07/24 20:08: Vancomycin Trough 12.6 H 01/08/24 01:00: Vancomycin Peak 29.3 01/08/24 05:38: WBC 9.5 D, RBC 4.29, Hgb 12.3, Hct 35.8 L, MCV 83.5, MCH 28.6, MCHC 34.2, RDW 13.1, Plt Count 328, MPV 8.5, Neut % (Auto) 56.8, Lymph % (Auto) 29.7, [place] % (Auto) 4.7, Eos % (Auto) 8.1, Baso % (Auto) 0.7, Neut # (Auto) 5.4, Lymph # (Auto) 2.8, [place] # (Auto) 0.4, Eos # (Auto) 0.8 H, Baso # (Auto) 0.1, Sodium 139, Potassium 3.8, Chloride 109 H, Carbon Dioxide 23, Anion Gap 10.8, BUN 9, Creatinine 0.90, Estimated Creat Clear 137, Estimated GFR 73, Est GFR (A fricristela Amer) 88, Glucose 96, Calcium 9.0, Magnesium 2.0, Total Bilirubin 0.5, AST 23 D, ALT 13, Alkaline Phosphatase 58, C-Reactive Protein 88.5 H D, Total Protein 6.6, Albumin 3.5, Globulin 3.1, Albumin/Globulin Ratio 1.1 I & O for Last 24 hours: Intake & Output 01/05/24 01/06/24 01/07/24 01/08/24 23:59 23:59 23:59 23:59 Intake Total 1700 / 1700 2200 / 2200 Output Total 0 / 0 0 / 0 0 / 0 Balance 1700 / 1700 2200 / 2200 0 / 0 Weight 95.906 kg 97.704 kg 97.023 kg Microbiology Reports for the Last 24 Hours: Microbiology 01/06/24 11:04 Blood Blood Culture - Preliminary NO GROWTH AFTER 24 HOURS 01/06/24 11:11 Blood Blood Culture - Preliminary NO GROWTH AFTER 24 HOURS Constitutional Constitutional: no acute distress, obese and cooperative *Routine HEENT Exam Head: Present normocephalic Eye: Present EOMI and PERRL ENT: Present mucous membranes moist *Routine Neck Exam Neck: Present supple; Absent lymphadenopathy *Routine Respiratory Exam Respiratory: Present CTA bilaterally *Routine Cardiovascular Exam Cardiovascular: Present RRR *Routine Abdominal Exam Abdominal: Present soft and normoactive bowel sounds; Absent tenderness Comments: Minimally tender at surgical wound sites but no erythema or significant intra- abdominal tenderness. No peritoneal signs. *Routine Rectal Exam Patient deferred: visual exam *Routine Exam Patient deferred: external exam *Routine Extremities Exam Extremities: Absent cyanosis, clubbing or edema *Routine Skin Exam Skin: Present warm; Absent rash *Routine Neurological Exam Neurological: Present alert, oriented X3 and moving all extremities; Absent altered mental status Results Data Completed and Pending Labs on day of discharge: Labs from last 24 hours 01/08/24 01/08/24 01/07/24 05:38 01:00 20:08 WBC 9.5 D RBC 4.29 Hgb 12.3 Hct 35.8 L MCV 83.5 MCH 28.6 MCHC 34.2 RDW 13.1 Plt Count 328 MPV 8.5 Neut % (Auto) 56.8 Lymph % (Auto) 29.7 [place] % (Auto) 4.7 Eos % (Auto) 8.1 Baso % (Auto) 0.7 Neut # (Auto) 5.4 Lymph # (Auto) 2.8 [place] # (Auto) 0.4 Eos # (Auto) 0.8 H Baso # (Auto) 0.1 Sodium 139 Potassium 3.8 Chloride 109 H Carbon Dioxide 23 Anion Gap 10.8 BUN 9 Creatinine 0.90 Estimated Creat Clear 137 Estimated GFR 73 Est GFR ( Amer) 88 Glucose 96 Calcium 9.0 Magnesium 2.0 Total Bilirubin 0.5 AST 23 D ALT 13 Alkaline Phosphatase 58 C-Reactive Protein 88.5 H D Total Protein 6.6 Albumin 3.5 Globulin 3.1 Albumin/Globulin Ratio 1.1 Vancomycin Peak 29.3 Vancomycin Trough 12.6 H Preliminary micro results at discharge 01/06/24 11:04 Blood Culture - Preliminary Blood NO GROWTH AFTER 24 HOURS 01/06/24 11:11 Blood Culture - Preliminary Blood NO GROWTH AFTER 24 HOURS DS: Diagnosis Discharge Diagnosis (1) E. coli UTI (urinary tract infection): Status: Acute Code(s): N39.0 - Urinary tract infection, site not specified; B96.20 - Unspecified Escherichia coli [E. coli] as the cause of diseases classified elsewhere (2) Postsurgical fever: Status: Resolved Code(s): R50.82 - Postprocedural fever (3) History of hysterectomy: Status: Acute Code(s): Z90.710 - Acquired absence of both cervix and uterus (4) Bipolar depression: Status: Chronic Code(s): F31.9 - Bipolar disorder, unspecified (5) Obesity: Status: Acute Code(s): E66.9 - Obesity, unspecified Qualifiers: Body mass index: BMI 34.0-34.9 Obesity classification: adult class 1 (BMI 30 - 34.9) Obesity type: due to excess calories Serious obesity comorbidity presence: without serious comorbidity Qualified Code(s): E66.811 - Obesity, class 1; E66.09 - Other obesity due to excess calories; Z68.34 - Body mass index [BMI] 34.0-34.9, adult (6) Anxiety: Status: Acute Code(s): F41.9 - Anxiety disorder, unspecified (7) Pelvic pain: Status: Acute Code(s): R10.2 - Pelvic and perineal pain Meds Home Medications and Allergies Home Medications ?Medication ?Instructions ?Recorded ?Confirmed ?Type fluticasone propionate 50 1 spray intranasal DAILY #16 grams 12/09/23 01/06/24 Rx mcg/actuation nasal spray,suspension hydrocortisone 1 % topical cream 1 applic topical TIDP PRN Itching 01/07/24 01/07/24 History amoxicillin 500 mg-potassium 1 tab PO TID 5 days #15 tabs 01/08/24 Rx clavulanate 125 mg tablet (Augmentin) fluconazole 200 mg tablet 200 mg PO DAILY 1 day #1 tab 01/08/24 Rx (Diflucan) sennosides 8.6 mg-docusate sodium 1 tab PO DAILYP PRN constipation 01/08/24 Rx 50 mg tablet (Stimulant Laxative 10 days #10 tabs Plus) levofloxacin 750 mg tablet 750 mg PO DAILY 5 days #5 tabs 01/09/24 Rx New Prescriptions to Start Prescriptions: amoxicillin-pot clavulanate [Augmentin] Mateus Simmons fluconazole [Diflucan] Mateus Simmons levofloxacin Mateus Simmons sennosides-docusate sodium [Stimulant Laxative Plus] Mateus Simmons Allergies Allergy/AdvReac Type Severity Reaction Status Date / Time azithromycin (AZITHROMYCIN) Allergy Intermediate I-HIVES Verified 01/06/24 09:50 doxycycline Allergy Rash Verified 01/06/24 09:50 Discharge Plan Disposition Patient Disposition: Home, Self-Care Follow up Plan Follow up with: Guero Brewer MD [Staff Physician] - 01/11/24 2:45 pm Prescriptions/Medication Reconciliation: New sennosides-docusate sodium [Stimulant Laxative Plus] 8.6-50 mg Tablet 1 tab PO DAILYP PRN (Reason: constipation) 10 Days Qty: 10 0RF amoxicillin-pot clavulanate [Augmentin] 500-125 mg tablet 1 tab PO TID 5 Days Qty: 15 0RF fluconazole [Diflucan] 200 mg tablet 200 mg PO DAILY 1 Days Qty: 1 0RF levofloxacin 750 mg tablet 750 mg PO DAILY 5 Days Qty: 5 0RF Continued fluticasone propionate 50 mcg/actuation spray,suspension 1 spray intranasal DAILY Qty: 16 0RF hydrocortisone 1 % cream 1 applic topical TIDP PRN (Reason: Itching) Rx Instructions: APPLY TO AFFECTED AREA UP TO THREE TIMES DAILY NEEDED FOR ITCHING Problem Reconciliation Problems Reviewed?: Yes Patient Discharge Instructions ACTIVITY: Continue current activity DIET: continue same diet Patient Instructions: DI for Constipation, DI for Postoperative Pain Print Language: Georgian Providers Primary Care Provider: Bita Tovar Admit Provider: Guero Brewer Attending Provider: Guero Brewer
--- NOTE | 2024-01-08 08:51 | EXP.ACUTE.PN ---
Subjective *Date: 01/08/24 *Time: 08:51 Interval history: Feeling well this morning. She would like to go home. Pain has greatly improved. WBC has decreased from 14 to 9 this morning. Medical Exam Vital signs and Labs for Last 24 Hours: Vital Signs Temp Pulse Resp BP Pulse Ox O2 Del Method 01/08/24 08:19 Room Air 01/08/24 08:00 98.1 F 84 14 124/72 99 Room Air 01/08/24 08:00 Room Air 01/08/24 06:43 Room Air 01/08/24 05:00 Room Air 01/08/24 04:00 97.7 F 90 16 122/66 99 Room Air 01/08/24 03:00 Room Air 01/08/24 00:58 Room Air 01/08/24 00:00 97.9 F 80 16 113/59 L 100 Room Air 01/07/24 23:00 Room Air 01/07/24 21:00 Room Air 01/07/24 20:00 Room Air 01/07/24 20:00 98.4 F 86 18 147/91 H 100 Room Air 01/07/24 17:23 Room Air 01/07/24 16:23 Room Air 01/07/24 16:00 98.3 F 88 19 127/83 99 Room Air 01/07/24 11:55 Room Air 01/07/24 11:00 Room Air Intake and Output 01/07/24 01/08/24 01/08/24 23:59 07:59 15:59 Intake Total 1250 / 2200 500 / 500 Output Total 0 / 0 0 / 0 0 / 0 Balance 1250 / 2200 0 / 500 500 / 500 Intake: Intake, Oral Amount 900 / 1500 400 / 400 Intake, Total IV Amount 350 / 700 100 / 100 Lactated Ringers 1000ML 1,000 350 / 350 ml @ 50 mls/hr IV .Q20H LUIS MIGUEL Rx# :[id number] Piperacillin/Tazo 4.5 gm In 0.9 100 / 100 % Sodium Chloride 100 ml @ 200 mls/hr IV Q6H LUIS MIGUEL Rx#:[id number] Output: Output, Urine Amount 0 / 0 0 / 0 0 / 0 Other: Number of Unmeasured Voids 2 2 2 Number of Bowel Movements 1 Weight 213 lb 14.4 oz Patient Weight 01/08/24 23:59 Weight 213 lb 14.4 oz Laboratory Results - last 24 hr 01/07/24 20:08: Vancomycin Trough 12.6 H 01/08/24 01:00: Vancomycin Peak 29.3 01/08/24 05:38: WBC 9.5 D, RBC 4.29, Hgb 12.3, Hct 35.8 L, MCV 83.5, MCH 28.6, MCHC 34.2, RDW 13.1, Plt Count 328, MPV 8.5, Neut % (Auto) 56.8, Lymph % (Auto) 29.7, [place] % (Auto) 4.7, Eos % (Auto) 8.1, Baso % (Auto) 0.7, Neut # (Auto) 5.4, Lymph # (Auto) 2.8, [place] # (Auto) 0.4, Eos # (Auto) 0.8 H, Baso # (Auto) 0.1, Sodium 139, Potassium 3.8, Chloride 109 H, Carbon Dioxide 23, Anion Gap 10.8, BUN 9, Creatinine 0.90, Estimated Creat Clear 137, Estimated GFR 73, Est GFR ( Amer) 88, Glucose 96, Calcium 9.0, Magnesium 2.0, Total Bilirubin 0.5, AST 23 D, ALT 13, Alkaline Phosphatase 58, C-Reactive Protein 88.5 H D, Total Protein 6.6, Albumin 3.5, Globulin 3.1, Albumin/Globulin Ratio 1.1 I & O for Labs for Last 24 Hours: Intake & Output 01/05/24 01/06/24 01/07/24 01/08/24 23:59 23:59 23:59 23:59 Intake Total 1700 / 1700 2200 / 2200 500 / 500 Output Total 0 / 0 0 / 0 0 / 0 Balance 1700 / 1700 2200 / 2200 500 / 500 Weight 211 lb 7 oz 215 lb 6.4 oz 213 lb 14.4 oz Microbiology Reports for the Last 24 Hours: Microbiology 01/06/24 11:04 Blood Blood Culture - Preliminary NO GROWTH AFTER 24 HOURS 01/06/24 11:11 Blood Blood Culture - Preliminary NO GROWTH AFTER 24 HOURS Head: Present atraumatic and normocephalic ENT: Present mucous membranes moist Neck: Present normal inspection and full ROM Respiratory: Present CTA bilaterally and normal respiratory effort Cardiac: Present Reg Rate and Rhythm GI: Present soft and normal bowel sounds; Absent distention or tenderness Rectal (female): Present deferred (female): Present deferred Extremities: Present full ROM; Absent edema or calf tenderness Neuro: Present alert, awake and moves all extremities Assessment and Plan *Assessment and plan (1) Postsurgical fever: Status: Acute Category: Medical Code(s): R50.82 - Postprocedural fever (2) Pelvic pain: Status: Acute Category: Medical Code(s): R10.2 - Pelvic and perineal pain (3) History of hysterectomy: Status: Acute Category: Surgical Code(s): Z90.710 - Acquired absence of both cervix and uterus Plan Feeling well today. WBC normalized this morning, 9.5. She has been afebrile since 01/05 at 2000 Pain has greatly improved D/c home today with PO antibiotics Follow-up with Dr. Brewer in 2 weeks or sooner if needed
--- NOTE | 2024-01-11 10:21 | SW/DCPLANNER ---
Spoke with patient on the phone and said that she has been doing good since her DC and that she just had her follow up with her DR this morning. Patient stated that she has no concerns or questions at this time. Jose Cowart
== END 2024-01-08 09:26 | disposition home or self-care (01) ==
PROVIDERS: Internal Medicine Adolescent Medicine; Admitting Provider Nurse Practitioner Obstetrics & Gynecology; PCP Physician Assistant; Visit Provider Nurse Practitioner Obstetrics & Gynecology
DX: N39.0 Urinary tract infection, site not specified (principal); B96.20 Unspecified Escherichia coli [E. coli] as the cause of diseases classified elsewhere; R50.82 Postprocedural fever; F31.9 Bipolar disorder, unspecified; F41.9 Anxiety disorder, unspecified; R10.2 Pelvic and perineal pain; Z68.36 Body mass index [BMI] 36.0-36.9, adult; E66.09 Other obesity due to excess calories; Z90.710 Acquired absence of both cervix and uterus
CPT/HCPCS: 36415; 74177; 80053; 80202; 83605; 83735; 85007; 85025; 85027; 85651; 86140; 87040; 87086; 87088; 87186; 87633; G0378; J2543; J3370; J7120; Q9967

== ENCOUNTER 2024-02-26 10:41 | Outpatient (CLI) | payer OTHER, SELFPAY ==
[2024-02-26 18:07] LABS: Basophils # 0.1 K/mm3 (0-0.2); Basophils % 0.8 % (0.1-2.0); Eosinophils # 0.1 K/mm3 (0.0-0.4); Eosinophils % 0.7 % (0.1-12.0); Hemoglobin 13.6 g/dL (12.2-16.2); Lymphocytes # 2.3 K/mm3 (0.7-4.5); Lymphocytes % 26.6 % (10-50); Mean Corpuscular HGB Conc 32.4 g/dL (31.8-35.4); Mean Corpuscular Hemoglobin 27.9 pg (27.0-31.2); Mean Corpuscular Volume 86.1 fl (81-99); Mean Platelet Volume 11.6 fl (7.4-10.4); Monocytes # 0.5 K/mm3 (0.1-1.0); Monocytes % 5.9 % (1.7-9.3); Neutrophils # 5.8 K/mm3 (1.8-7.8); Neutrophils % 65.8 % (37.0-80.0); Platelet Count 313 K/mm3 (142-424); Red Blood Count 4.88 M/mm3 (4.20-5.40); Red Cell Distribution Width 12.8 % (11.5-17.5); White Blood Count 8.8 K/mm3 (4.8-10.8)
[2024-02-26 18:26] LABS: Chloride 104 mmol/L (98-107); Potassium 4.6 mmoL/L (3.5-5.1); Sodium 134 mmol/L (136-145)
[2024-02-26 18:29] LABS: Blood Urea Nitrogen 11 mg/dl (7-17); Estimated Glomerular Filt Rate 83 ml/min (>60); GFR (African American) 101 ML/MIN (>60)
[2024-02-26 18:30] LABS: Anion Gap 11.6 mEq/L (5-15); Calcium 9.6 mg/dl (8.4-10.2); Carbon Dioxide 23 mmol/L (22.0-30.0); Glucose 80 mg/dl (74-100)
== END 2024-02-26 23:59 | disposition home or self-care (01) ==
LOC: LAB.DROPOF 02-29 10:42
PROVIDERS: PCP Student in an Organized Health Care Education/Training Program; Visit Provider Student in an Organized Health Care Education/Training Program
DX: N39.0 Urinary tract infection, site not specified (principal); B96.20 Unspecified Escherichia coli [E. coli] as the cause of diseases classified elsewhere
CPT/HCPCS: 80048; 85025; 87086; 87088; 87186

== ENCOUNTER 2024-03-15 12:22 | Emergency (ER) | payer OTHER, SELFPAY ==
[2024-03-15 12:35] VITALS: BP 131/91; PULSE 105; RESP 19; TEMP 37.3; O2SAT 99; BMI 38.4
--- NOTE | 2024-03-15 12:52 | ED_ITS ---
Discharge Plan Disposition Patient Disposition: Home, Self-Care Condition: Good Referrals Follow up/Referrals: Bita Tovar PA [Primary Care Provider] - See instructions Activity Restrictions/Add. Instructions Additional Instructions/Restrictions: *Monitor Temp, Over the counter Motrin or Tylenol as directed/as needed Tylenol every 4 hours and Motrin every 6 hours (as long as your family doctor has told you that you can take it) for fever or pain. and straight to ER if unable to lower temp less than 101.0 after medication given *Warm salt water gargles may help to soothe the throat *Throat Lozenges? *Warm fluids like tea with honey may help to soothe the throat? *Sleep elevated *Humidifier/Vaporizer *Flonase 2 sprays in each nostril daily but be aware that it may take 2-3 days before you notice improvement *Bromfed may cause drowsiness. Know how it effects you (your child) before driving, caring for small child, or sending your child to school. Not other antihistamines/allergy medications while taking bromfed Your throat swab was sent for culture. Those results are typically sent to your primary care. Be sure to follow up in 2-3 days with your family doctor/primary care physician if no improvement so they can review those result and treat if necessary. If you don?t have a primary care doctor, I recommend you get one but in the mean time, you will have to return to a walk in clinic Follow up IMMEDIATELY for new or worsening symptoms or no Noticeable improvement over the next 48-72 hours. 911 for difficulty breathing or swallowing You were tested for today for Mini Respiratory Panel that includes COVID19 Influenza A&B, RhinoVirus and RSV your test result should be back in the next few hours and be available to view on the [facility] Health Portal Clinical Impressions Clinical Impression: Viral syndrome Stand Alone Forms Stand Alone Forms: Work/School Release Instructions Patient Instructions: DI for Viral Syndrome Print Language Print Language: Guamanian Discharge ED Provider: Zaira Hairston [facility] HPI General Stated complaint: sore throat, cough Mode of Arrival: Ambulatory Source of Information: Patient Limitations: No Limitations Time Seen by Provider: 03/15/24 12:52 Description of Symptoms (Recalled from Triage Doc. by RN): PATIENT C/O SORE THROAT SINCE LAST WEEK AND LOW-GRADE FEVER AND HEAD CONGESTION SINCE YESTERDAY HEENT Symptoms (Recalled from RN notes): Yes Resp Symptoms (Recalled from RN notes): No Skin Symptoms (Recalled from RN notes): No MS Symptoms (Recalled from RN notes): No Functional Status (Recalled from RN notes): WNL History of Present Illness Provider Complaint: Patient states that she has been having sore throat since last week and started yesterday with body aches, chills, low grade fever and nasal congestion States that she has been exposed to Flu and Strep so she came in to get checked Related Data Allergies Allergy/AdvReac Type Severity Reaction Status Date / Time azithromycin (AZITHROMYCIN) Allergy Intermediate I-HIVES Verified 02/26/24 09:01 doxycycline Allergy Rash Verified 02/26/24 09:01 Worker's Comp Is this a Worker's Comp case?: No [facility] Disclaimer: The information contained in this section may have been updated after the patient was seen, as this information can be updated by other users. 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 Hematometra Normal hysteroscopy Upper respiratory infection, viral Otitis media Eczema of lower extremity right upper leg, lateral aspect, size of a dime Vaginitis Pelvic pain Encounter for gynecological examination (general) (routine) without abnormal findings Viral upper respiratory infection Upper respiratory tract infection Bronchitis Strep throat Sinusitis Insomnia Obesity (BMI 30-39.9) Abnormal cervical Papanicolaou smear Furuncle Surgical History H/O dilation and curettage H/O abdominal hysterectomy History of appendectomy History of cholecystectomy H/O tubal ligation Family History Other Diabetes Social History Smoking Status: Former smoker second hand exposure: No alcohol intake: never substance use type: denies use current occupational status: employed Travel in the last 8 weeks: None household members: significant other and children housing: house number of children: 2 current occupation: [employer] current occupational exposures/hazards: No caffeine: Yes Have you lived/traveled outside [place] in past 30 days?: No Contact w/someone who lives/traveled outside US past 30 days?: No Exposure to someone with infectious disease in past 14 days?: No Do you have a fever (greater than 100.4 F or 38 C)?: No Have you tested positive for COVID-19: No Exposed to someone with COVID-19 in past 14 days?: No Do you have a sore throat?: No Do you have a cough?: No Do you have any weakness?: No Do you have any diarrhea?: No Are you experiencing any unusual bleeding?: No Do you have any muscle aches/pain?: No Do you have any abdominal pain?: No Are you experiencing loss of taste or smell?: No ROS Obtained: Yes All systems reviewed & no additional complaints except as documented and Yes Systems reviewed as appropriate & no additional complaints except as documented Constitutional Constitutional: Reports system reviewed and no additional complaints, except as documented, Reports as per HPI, Reports body ache, Reports chills, Reports fever(s) and Reports headache(s) ENT Ears, Nose, Mouth, and Throat: Reports system reviewed and no additional complaints, except as documented, Reports as per HPI, Reports headache(s), Reports nasal congestion, Reports nasal discharge and Reports sore throat Cardiovascular Cardiovascular: Reports system reviewed and no additional complaints, except as documented and Reports as per HPI Respiratory Respiratory: Reports system reviewed and no additional complaints, except as documented and Reports as per HPI Gastrointestinal Gastrointestingal: Reports system reviewed and no additional complaints, except as documented and as per HPI Neurologic Neurologic: Reports headache(s) Physical Exam General General appearance: alert and in no apparent distress ENT ENT exam: Present mucous membranes moist Expanded ENT Exam Nose exam: Absent sinus tenderness Throat exam: Present tonsillar erythema Respiratory Respiratory exam: Present normal lung sounds bilaterally; Absent respiratory distress or wheezes Cardiovascular Cardiovascular exam: Present regular rate, normal rhythm and normal heart sounds Abdominal Exam Abdominal exam: Present soft and normal bowel sounds; Absent distention or tenderness Neurological Exam Neurological exam: Present alert, oriented X3 and normal gait Medical Decision Making Medical Records Screening: Per USPSTF and CDC recommendations, given the prevalence of disease in our region, it is our hospital?s policy to screen for HIV and viral Hepatitis for all patients aged 18 and over and those with ongoing risk factors. Wade Inquiry Pt receiving controlled substance: No Wade was queried for this patient: No Vital Signs: 03/15/24 12:35 Temperature 99.1 F Temperature Source Oral Pulse Rate [Left Brachial] 105 H Respiratory Rate 19 Blood Pressure [Left Arm] 131/91 H Blood Pressure Mean [Left Arm] 104 Blood Pressure Source [Left Arm] Automatic Cuff Blood Pressure Position [Left Arm] Sitting 02 Sat by Pulse Oximetry 99 Oxygen Delivery Method Room Air Lab Data Lab results reviewed: Yes I reviewed the patient's lab results.
[2024-03-15 12:59] LABS: UTC Influenza A Antigen Negative (Negative); UTC Strep Screen (Rapid) Negative (Negative)
[2024-03-15 13:00] LABS: UTC Influenza B Antigen Negative (Negative)
[2024-03-15 13:13] VITALS: BP 131/91; PULSE 105; RESP 19; TEMP 37.3; O2SAT 99
[2024-03-15 13:24] LABS: Coronavirus 19, PCR Not Detected (NotDetected); Human Rhinovirus Not Detected (NotDetected); Influenza A, PCR Not Detected (NotDetected); Influenza B, PCR Not Detected (NotDetected); Respiratory Syncytial Virus Not Detected (NotDetected)
== END 2024-03-15 13:16 | disposition home or self-care (01) ==
PROVIDERS: Emergency Provider Nurse Practitioner; PCP Physician Assistant
DX: B34.9 Viral infection, unspecified (principal); R07.0 Pain in throat; R09.81 Nasal congestion; R50.9 Fever, unspecified; R51.9 Headache, unspecified
CPT/HCPCS: 87631; 87804; 87880; 99212; G0381

== ENCOUNTER 2024-12-13 08:57 | Outpatient (CLI) | payer OTHER, SELFPAY ==
[2024-12-13 14:42] LABS: Coronavirus 19, PCR Not Detected (NotDetected); Influenza A, PCR Not Detected (NotDetected); Influenza B, PCR Not Detected (NotDetected)
--- OUTSIDE RECORDS SUMMARY | 2024-12-15 09:09 | XMS_ITS | Clinical Summary ---
Author Organization [facility] Address [address] [place] [address] Care Team Providers Care Founding Partner Name Role Phone Provider, No Known Primary Care Provider Unavail able Allergies Active Allergy Reactions Criticality Noted Date Comments Azithromycin Hives 09/08/2016 Medications Vit-Fe Fumarate-FA ( ) 27-1 MG tablet tablet Take 1 tablet by mouth Daily. Active Loratadine (CLARITIN) 10 MG capsule Take 1 capsule by mouth Daily. Active magnesium chloride ER (MAG-DELAY) 535 (64 MG) MG CR tablet Take 64 mg by mouth Daily. Active IRON PO Take 1 tablet by mouth Daily. 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 Not on file 12/2022 Does Anyone Keep You from Co ntacting Others or Doint Things Outside the Home? Not on file 11/26/2022 Physical Sign of Abuse Present Not on file 1 Housing Stability Answer Date Recorded Current Living Arrangements Not on file 11/16 Potentially Unsafe Housing Conditions Not on rohit e 11/26/2022 Family and Community Support Answer Kan e Recorded Help with Day-to-Day Activities Not on file 11/26/2022 Lonely or Isolated Not on file 11/26/2022 Employment Answer Date Recorded Do you want help finding or keeping work or a joo b? Not on file 11/26/2022 Disabilities Answer Date Recorded Concentrating, Remembering, or Making Decisions Difficulty Not on file 11/26/2022 Doing Errands Independently Difficulty Not on fi le 11/26/2022 Education Answer Date Recorded Help with school or training? Not on file Preferred Language Not on file 11/26/2022 Comments No Sex and Gender Information Value Date Recorded Sex Assigned at Not on file Legal Sex Female 10:55 AM EDT Gender Identity Not on file Sexual Orientation Not on file Last Filed Vital Signs Vital Sign Reading Time Taken Comments Blood Pressure 128/77 08/26/2017 8:51 AM EDT Pulse - - Temperature - - Respiratory Rate - - Oxygen Saturation - - Inhaled Oxygen Concentration - - Weight 87.5 kg (193 lb) 08/26/2017 8:51 AM EDT Height 162.6 cm (5' 4 ) 09/08/2016 3:01 PM EDT Body Mass Index 33.13 09/08/2016 3:01 PM EDT Plan of Treatment Health Maintenance Due Date Last Done Comments Annual Gynecologic Pelvic an d Breast Exam 1991 TDAP/TD VACCINES (1 - Tdap) 04/20/2010 ANNUAL PHYSICAL 09/08/2016 HEPATITIS C SCREENING 09/08/2016 INFLUENZA VACCINE 09/16/2024 Pneumococcal Vaccine 0-49 Aged Out No longer eligible based on patient's age to complete this topic Insurance [facility] [id number] Care Teams Founding Partner Relationship Specialty Start Date End Date Provider, [place] [address] PCP - General 09/05/16
== END 2024-12-13 23:59 ==
LOC: LAB.DROPOF 12-15 08:58
PROVIDERS: PCP Physician Assistant; Visit Provider Student in an Organized Health Care Education/Training Program
DX: R50.9 Fever, unspecified (principal)
CPT/HCPCS: 87631